=== PATIENT | male | born 1940 | race Caucasian/White ===

== ENCOUNTER 2019-07-15 07:32 | Outpatient (CLI) | payer MEDICARE, OTHER, SELFPAY ==
[2019-07-15 08:43] LABS: Prostate Specific Antigen 1.64 ng/mL (0-4)
[2019-07-15 09:15] LABS: Testosterone Total 7.4 ng/dL (193-740)
[2019-07-15] MEDS: lidocaine 1% INJ 20 mL INJECTION (09:53)
[2019-07-15] MEDS: goserelin acetate 10.8 mg Implant IM (10:00)
--- NOTE | 2019-07-15 11:07 | ONC FU_ITS ---
Dr. Chavarria follow up note Patient: Lorenzo Desouza Unit #: [id number]: [id number] Dicatated By: Florence Chavarria M.D.Date of Visit:Jul 15, 2019 Onc Med Follow-up/Prog Note History of Present Illness: Mr. Deo Ventura is a 79-year-old gentleman with history of prostate cancer initially diagnosed in 2001 at that time his PSA was 14.3 and Skylar score was 3+4 and he was treated with radical prostatectomy with negative lymph nodes but positive extraprostatic extension with positive margins. Follow-up showed rising PSA for that he underwent adjuvant radiation therapy which was completed in March 2003. Was doing well until March 2014 when he was started on LHRH agonist therapy for slowly rising PSA and in May 2015 is a PSA was 37 so he was started on combined androgen blockade with that he had excellent response and his last PSA checked 07/06/2017 it was less than 0.04 and same day he received his 3 monthly dose of Zoladex 10.8 mg and he is also taking Casodex 50 mg daily.And continued with 3 monthly Zoladex till 01/03/2018 at that time it was changed to every 6 months and Casodex was discontinued.Switched to 3 monthly Zoladex alone on 01/10/2019 because of progressive PSA CT scan of pelvis done on 05/03/2018 showed no evidence of metastatic disease but rectosigmoid colon junction wall thickening for which patient underwent colonoscopy on 06/08/2018 which showed proximal descending colon sessile polyps , were completely removed and proximal sigmoid colon also showed multiple medium diverticula. Came for follow-up, denies any specific complaints, no nausea or vomiting no fever or chills, no diarrhea constipation, occasionally hot flashes otherwise tolerating Zoladex well. No hematuria no dysuria no new bony pains. Medications: Acetaminophen 1 (325 mg) Tablet Oral daily PRN, Allergy Relief 1 (10 mg) Tablet Oral daily, Clotrimazole-Betamethasone 1 (1-0.05 %) Lotion Topical b.i.d. PRN, Ibuprofen 1 (200 mg) Tablet Oral q 4 to 6 hours PRN, ProAir HFA 1 - 2 puff(s) (of 108 (90 base) mcg/act) Aerosol, solution Inhalation q 6 hours PRN, Sulfamethoxazole-Trimethoprim 1 (800-160 mg) Tablet Oral PRN, Symbicort 1 puff(s) (of 80-4.5 mcg/act) Aerosol Inhalation b.i.d. Allergies: No Known Allergies. Review of Systems: Constitutional - Appetite is good and weight is stable. No fever, chills, occasional hot flashes, no night sweats. Energy level is good, ENMT - No sinus congestion/drainage. No mouth sores. No sore throat or difficulty swallowing, Hematologic/Lymphatic - No abnormal bruising or bleeding, Respiratory - No shortness of breath. No cough. No pleuritic pain or hemoptysis, Cardiovascular - No angina pain. No palpitations, Gastrointestinal - No nausea or vomiting. No heartburn or acid reflux. No diarrhea or constipation. No blood in the stool or black stools, Genitourinary (M) - No dysuria or hematuria. No urinary frequency. No urgency or incontinence, Musculoskeletal - Pt denies pain today, Neurologic - No headache or dizziness. No numbness/paresthesias or other focal neurologic symptoms, Psychiatric - No anxiety or depression. No insomnia. Vital Signs: Performed on Jul 15, 2019 09:17 Height - 70.00 in Weight - 223.8 lbs (LOW) BSA - 2.19 sq.m BMI - 32.11 (HIGH) Temperature - 97.4 F (LOW) Pulse - 57 /min (LOW) Respiration - 24 /min BP - 132/74 mm(hg) O2 Sat - 96 % Pain - 0 Performance Status: 0 - Fully active, able to carry on all predisease activities without restrictions. (ECOG) Physical Examination: ENMT - No oral exudates, ulcers, masses, thrush or mucositis. Oropharynx clear. Tongue normal, Respiratory - Lungs are clear to auscultation without rhonchi or wheezing, Cardiovascular - Regular rate and rhythm of heart, Abdomen - Non-tender, non-distended, Good bowel sounds. No guarding or rebound tenderness. No pulsatile masses, Extremities - no edema. Lab/Imaging: Test performed on Apr 10, 2019 09:54 Sodium 136 mmol/L Potassium 5.1 mmol/L Chloride 97 mmol/L CO2 29 mmol/L Anion Gap 15.1 BUN 20 mg/dL Creatinine 1.0 mg/dL Cr Clearance (Est) 86.8500 mL/min Glucose 119 mg/dl Calcium 9.7 mg/dL Protein, Total 6.4 g/dL Albumin 4.1 g/dL Globulin 2.3 gm/dL Bilirubin, Total 0.3 mg/dL ALT (SGPT) 14 U/L AST (SGOT) 14 U/L Alkaline Phosphatase 68 U/L PSA 0.95 ng/mL Impression: Prostrate cancer initially diagnosed in 2001 with PSA 14.3, left nodule and Skylar score 3+4 while 1 biopsy status post radical prostatectomy with negative lymph nodes but positive extra prostatic extension with positive margins. Followed by adjuvant radiation therapy completed in March 2003 History of rising PSA treated with and and LHRH agonist therapy beginning March 2014 and later PSA continued to go up initiated on combined androgen blockade with Zoladex and Casodex in May 2015 for PSA 37. With excellent response last PSA on 07/06/2017 was less than 0.04 and testosterone less than 23 .Last dose of Zoladex was given on 01/03/2018 Switched to 6 monthly Zoladex on 05/08/2018 , and Casodex was discontinued, As follow-up bone scan and CT scan of Pelvis showed no evidence of disease and PSA within normal limit so next dose due in 2 months as Urethral stricture mild Follow-up CT scan of abdomen pelvis done on 05/03/2018 showed no evidence of metastatic disease but rectosigmoid colon junction wall thickening follow-up endoscopic suggested.Colonoscopy done on 06/08/2018 showed proximal descending colon sessile polyps, both were removed and in proximal sigmoid colon, multiple medium-sized diverticula were present. Bone scan done on 05/03/2018 showed no evidence of bone metastases Plan: Discussed with patient regarding his labs his PSA is 1.64, compared to 0.95 on 04/10/2019 and 0.67 on 01/08/2019 and testosterone 7.4 today Clinically, patient is doing well with no new signs symptom suggestive of disease progression but his follow-up lab showed progressive PSA in fact has more than doubled since 01/08/2019. Patient was on Zoladex every 6 month until 01/08/2019 when it was switched to every 3 months. We will proceed with his 3 monthly dose of Zoladex and also add Casodex 50 mg by mouth daily and patient return to clinic in 3 months with PSA/testosterone if PSA continued to go up then will consider adding Zytiga/prednisone. Signed By: Florence Chavarria M.D. <<Signature on File>>
== END 2019-07-15 07:33 | disposition home or self-care (01) ==
LOC: ONCMED 07:36
PROVIDERS: Family Provider Family Medicine; Visit Provider Internal Medicine Hematology & Oncology
DX: C61 Malignant neoplasm of prostate (principal); K57.30 Diverticulosis of large intestine without perforation or abscess without bleeding; Z90.79 Acquired absence of other genital organ(s); Z79.899 Other long term (current) drug therapy; Z79.818 Long term (current) use of other agents affecting estrogen receptors and estrogen levels
CPT/HCPCS: 36415; 84153; 84403; 96372; 96402; 99214; J2001; J9202

== ENCOUNTER 2019-10-16 08:55 | Outpatient (CLI) | payer MEDICARE, OTHER, SELFPAY ==
[2019-10-16 21:20] LABS: Testosterone Total 15.3 ng/dL (193-740)
[2019-10-16 21:21] LABS: Prostate Specific Antigen 0.46 ng/mL (0-4)
== END 2019-10-16 08:56 | disposition home or self-care (01) ==
LOC: ONCMED 15:55
PROVIDERS: PCP Family Medicine; Visit Provider Internal Medicine Hematology & Oncology
DX: C61 Malignant neoplasm of prostate (principal)
CPT/HCPCS: 36415; 84153; 84403

== ENCOUNTER 2019-10-18 07:56 | Outpatient (CLI) | payer MEDICARE, OTHER, SELFPAY ==
[2019-10-18] MEDS: lidocaine 1% INJ 20 mL INJECTION (08:45)
[2019-10-18] MEDS: goserelin acetate 10.8 mg Implant IM (09:00)
--- NOTE | 2019-10-18 14:09 | ONC FU_ITS ---
Dr. Chavarria follow up note Patient: Lorenzo Desouza Unit #: [id number]: 1940 Dicatated By: Florence Chavarria M.D.Date of Visit:October 18, 2019 Onc Med Follow-up/Prog Note History of Present Illness: Mr. Deo Ventura is a 79-year-old gentleman with history of prostate cancer initially diagnosed in 2001 at that time his PSA was 14.3 and Skylar score was 3+4 and he was treated with radical prostatectomy with negative lymph nodes but positive extraprostatic extension with positive margins. Follow-up showed rising PSA for that he underwent adjuvant radiation therapy which was completed in March 2003. Was doing well until March 2014 when he was started on LHRH agonist therapy for slowly rising PSA and in May 2015 is a PSA was 37 so he was started on combined androgen blockade with that he had excellent response and his last PSA checked 07/06/2017 it was less than 0.04 and same day he received his 3 monthly dose of Zoladex 10.8 mg and he is also taking Casodex 50 mg daily.And continued with 3 monthly Zoladex till 01/03/2018 at that time it was changed to every 6 months and Casodex was discontinued.Switched to 3 monthly Zoladex alone on 01/10/2019 because of progressive PSA, Casodex was added again on 07/15/2019 for progressive PSA, his PSA was 1.64, compared to 0.95 on 04/10/2019 and 0.67 on 01/08/2019 CT scan of pelvis done on 05/03/2018 showed no evidence of metastatic disease but rectosigmoid colon junction wall thickening for which patient underwent colonoscopy on 06/08/2018 which showed proximal descending colon sessile polyps , were completely removed and proximal sigmoid colon also showed multiple medium diverticula. Came for follow-up, denies any specific complaints, no nausea vomiting no fever no chills, occasionally hot flashes, otherwise tolerating ADT with Zoladex/Casodex well Medications: Acetaminophen 1 (325 mg) Tablet Oral daily PRN, Allergy Relief 1 (10 mg) Tablet Oral daily, Clotrimazole-Betamethasone 1 (1-0.05 %) Lotion Topical b.i.d. PRN, Ibuprofen 1 (200 mg) Tablet Oral q 4 to 6 hours PRN, ProAir HFA 1 - 2 puff(s) (of 108 (90 base) mcg/act) Aerosol, solution Inhalation q 6 hours PRN, Symbicort 1 puff(s) (of 80-4.5 mcg/act) Aerosol Inhalation b.i.d. Allergies: No Known Allergies. Review of Systems: Constitutional - Appetite is good and weight is stable. No fever, chills, occasional hot flashes, no night sweats. Energy level is poor, ENMT - Positive for sinus congestion/drainage. No mouth sores. No sore throat or difficulty swallowing, Hematologic/Lymphatic - Positive for easy bruising, Respiratory - Positive for shortness of breath and cough. No pleuritic pain or hemoptysis, Cardiovascular - No angina pain. No palpitations, Gastrointestinal - No nausea or vomiting. Positive for heartburn/ acid reflux. No diarrhea or constipation. No blood in the stool or black stools, Genitourinary (M) - No dysuria or hematuria. No urinary frequency. No urgency or incontinence, Musculoskeletal - Pt reports chronic pain in both hands. He states he has an upcoming appt in [facility] for this, Neurologic - No headache or dizziness. No numbness/paresthesias or other focal neurologic symptoms, Psychiatric - No anxiety or depression. No insomnia. Vital Signs: Performed on October 18, 2019 08:04 Height - 70.00 in Weight - 226.2 lbs (HIGH) BSA - 2.20 sq.m BMI - 32.46 (HIGH) Temperature - 97.7 F (LOW) Pulse - 71 /min Respiration - 18 /min BP - 150/71 mm(hg) (HIGH) O2 Sat - 93 % (LOW) Pain - 5 Performance Status: 0 - Fully active, able to carry on all predisease activities without restrictions. (ECOG) Physical Examination: ENMT - no mouth sores, Respiratory - Lungs are clear, Cardiovascular - Regular rate and rhythm of heart, Abdomen - soft, bowel sounds present, Extremities - no visible edema. Lab/Imaging: Test performed on Jul 15, 2019 07:47 Testosterone, Total 7.4 ng/dL PSA 1.64 ng/mL Impression: Prostrate cancer initially diagnosed in 2001 with PSA 14.3, left nodule and Skylar score 3+4 while 1 biopsy status post radical prostatectomy with negative lymph nodes but positive extra prostatic extension with positive margins. Followed by adjuvant radiation therapy completed in March 2003 History of rising PSA treated with and and LHRH agonist therapy beginning March 2014 and later PSA continued to go up initiated on combined androgen blockade with Zoladex and Casodex in May 2015 for PSA 37. With excellent response last PSA on 07/06/2017 was less than 0.04 and testosterone less than 23 .Last dose of Zoladex was given on 01/03/2018 Switched to 6 monthly Zoladex on 05/08/2018 , and Casodex was discontinued, As follow-up bone scan and CT scan of Pelvis showed no evidence of disease and PSA within normal limit so next dose due in 2 months as Urethral stricture mild Follow-up CT scan of abdomen pelvis done on 05/03/2018 showed no evidence of metastatic disease but rectosigmoid colon junction wall thickening follow-up endoscopic suggested.Colonoscopy done on 06/08/2018 showed proximal descending colon sessile polyps, both were removed and in proximal sigmoid colon, multiple medium-sized diverticula were present. Bone scan done on 05/03/2018 showed no evidence of bone metastases Plan: Discussed with patient regarding his labs PSA 0.46, compared to 1.64 on 07/15/2019 and testosterone 15.3 Clinically, patient is doing well with no signs symptoms just of recurrence / progression of disease, his follow-up PSA showed significant improvement and today's 0.46 compared to 1.64 on 07/15/2019. When Casodex 50 mg by mouth was added for progressive PSA. Patient is tolerating Zoladex/Casodex well, we'll proceed with the next 3 monthly dose of Zoladex today and then he will return to clinic in 3 months with PSA in the meantime he will continue with daily Casodex. Signed By: Florence Chavarria M.D. <<Signature on File>>
== END 2019-10-18 07:57 | disposition home or self-care (01) ==
LOC: ONCMED 07:57
PROVIDERS: PCP Family Medicine; Visit Provider Internal Medicine Hematology & Oncology
DX: C61 Malignant neoplasm of prostate (principal); N35.919 Unspecified urethral stricture, male, unspecified site; Z92.3 Personal history of irradiation; Z79.890 Hormone replacement therapy; Z79.818 Long term (current) use of other agents affecting estrogen receptors and estrogen levels; Z79.899 Other long term (current) drug therapy
CPT/HCPCS: 96372; 96402; 99214; J2001; J9202

== ENCOUNTER 2019-11-13 11:28 | Outpatient (CLI) | payer MEDICARE, OTHER, SELFPAY ==
--- NOTE | 2019-11-13 11:54 | US_ITS ---
WS: [id number] DIAGNOSTIC BILATERAL DIGITAL MAMMOGRAM WITH CAD RIGHT breast ultrasound, limited HISTORY: RIGHT BREAST LUMP COMPARISON: None available. TECHNIQUE: Bilateral craniocaudad, mediolateral oblique, and mediolateral views are submitted. Spot c ompression RIGHT and LEFT CC. Computer aided detection utilized. Breast composition: The breasts are almost entirely fatty. Triangular marker is placed over the anter ior RIGHT breast near the nipple. 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 RIGHT breast ultrasound. Ultrasound is directed to the palpable area in the RIGHT nipple. There is mild soft tissue thickening in a flame-shaped distribution which is most typical for very minimal gynecomastia. US/US breast RT limited* [id number] IMPRESSION: BI-RADS: 2-Benign FOLLOW UP: See Report Findings are most typical for very minimal gynecomastia. Clinically if this pal pable mass continues to be of concern surgical biopsy could be obtained.
== END 2019-11-13 11:29 | disposition home or self-care (01) ==
LOC: RADSHAW 11:35
PROVIDERS: PCP Family Medicine; Visit Provider Family Medicine
DX: N63.10 Unspecified lump in the right breast, unspecified quadrant (principal)
CPT/HCPCS: 76642; 77066

== ENCOUNTER 2020-01-24 08:00 | Outpatient (CLI) | payer MEDICARE, BC, OTHER, SELFPAY ==
[2020-01-24 08:55] LABS: Prostate Specific Antigen 0.714 ng/mL (0-4)
--- NOTE | 2020-01-24 09:56 | ONC FU_ITS ---
Dr. Chavarria follow up note Patient: Lorenzo Desouza Unit #: [id number]: 1940 Dicatated By: Florence Chavarria M.D.Date of Visit:Jan 24, 2020 Onc Med Follow-up/Prog Note History of Present Illness: Mr. Deo Ventura is a 79-year-old gentleman with history of prostate cancer initially diagnosed in 2001 at that time his PSA was 14.3 and Skylar score was 3+4 and he was treated with radical prostatectomy with negative lymph nodes but positive extraprostatic extension with positive margins. Follow-up showed rising PSA for that he underwent adjuvant radiation therapy which was completed in March 2003. Was doing well until March 2014 when he was started on LHRH agonist therapy for slowly rising PSA and in May 2015 is a PSA was 37 so he was started on combined androgen blockade with that he had excellent response and his last PSA checked 07/06/2017 it was less than 0.04 and same day he received his 3 monthly dose of Zoladex 10.8 mg and he is also taking Casodex 50 mg daily.And continued with 3 monthly Zoladex till 01/03/2018 at that time it was changed to every 6 months and Casodex was discontinued.Switched to 3 monthly Zoladex alone on 01/10/2019 because of progressive PSA, Casodex was added again on 07/15/2019 for progressive PSA, his PSA was 1.64, compared to 0.95 on 04/10/2019 and 0.67 on 01/08/2019 CT scan of pelvis done on 05/03/2018 showed no evidence of metastatic disease but rectosigmoid colon junction wall thickening for which patient underwent colonoscopy on 06/08/2018 which showed proximal descending colon sessile polyps , were completely removed and proximal sigmoid colon also showed multiple medium diverticula Mammogram done on November 13, 2019 questionable fullness and it came back benign with mild soft tissue thickening in the flame shaped distribution seen in the lateral alveolar area on breast sonogram is most typical for very minimal gynecomastia. Came for follow-up, denies any specific complaint except occasionally hot flashes otherwise no fever chills, no nausea or vomiting no diarrhea constipation no abdominal pain, no dysuria otherwise tolerating ADT with Zoladex/Casodex well Medications: Acetaminophen 1 (325 mg) Tablet Oral daily PRN, Allergy Relief 1 (10 mg) Tablet Oral daily, Clotrimazole-Betamethasone 1 (1-0.05 %) Lotion Topical b.i.d. PRN, Ibuprofen 1 (200 mg) Tablet Oral q 4 to 6 hours PRN, ProAir HFA 1 - 2 puff(s) (of 108 (90 base) mcg/act) Aerosol, solution Inhalation q 6 hours PRN, Symbicort 1 puff(s) (of 80-4.5 mcg/act) Aerosol Inhalation b.i.d. Allergies: No Known Allergies. Review of Systems: Constitutional - Appetite is good and weight is stable. No fever, chills, occasional hot flashes, no night sweats. Energy level is poor, ENMT - Positive for sinus congestion/drainage. No mouth sores. No sore throat or difficulty swallowing, Hematologic/Lymphatic - Positive for easy bruising, Respiratory - Positive for shortness of breath and cough. No pleuritic pain or hemoptysis, Cardiovascular - No angina pain. No palpitations, Gastrointestinal - No nausea or vomiting. Positive for heartburn/ acid reflux. No diarrhea or constipation. No blood in the stool or black stools, Genitourinary (M) - No dysuria or hematuria. No urinary frequency. No urgency or incontinence, Musculoskeletal - Pt reports chronic pain in both hands, Neurologic - No headache or dizziness. No numbness/paresthesias or other focal neurologic symptoms, Psychiatric - No anxiety or depression. No insomnia. Vital Signs: Performed on Jan 24, 2020 09:23 Height - 70.00 in Weight - 224.6 lbs (LOW) BSA - 2.19 sq.m BMI - 32.23 (HIGH) Temperature - 97.4 F (LOW) Pulse - 70 /min Respiration - 20 /min BP - 154/84 mm(hg) (HIGH) O2 Sat - 93 % (LOW) Pain - 0 Performance Status: 0 - Fully active, able to carry on all predisease activities without restrictions. (ECOG) Physical Examination: ENMT - No mouth sores, no thrush, no jaundice, Respiratory - Lungs are clear, Cardiovascular - Regular rate and rhythm of heart, Abdomen - Soft, bowel sounds present, nontender, Extremities - No visible edema or rash. Lab/Imaging: Test performed on Oct 16, 2019 08:55 Testosterone, Total 15.3 ng/dL PSA 0.46 ng/mL Impression: Prostrate cancer initially diagnosed in 2001 with PSA 14.3, left nodule and Skylar score 3+4 while 1 biopsy status post radical prostatectomy with negative lymph nodes but positive extra prostatic extension with positive margins. Followed by adjuvant radiation therapy completed in March 2003 History of rising PSA treated with and and LHRH agonist therapy beginning March 2014 and later PSA continued to go up initiated on combined androgen blockade with Zoladex and Casodex in May 2015 for PSA 37. With excellent response last PSA on 07/06/2017 was less than 0.04 and testosterone less than 23 .Last dose of Zoladex was given on 01/03/2018 Switched to 6 monthly Zoladex on 05/08/2018 , and Casodex was discontinued, As follow-up bone scan and CT scan of Pelvis showed no evidence of disease and PSA within normal limit so next dose due in 2 months as Urethral stricture mild Follow-up CT scan of abdomen pelvis done on 05/03/2018 showed no evidence of metastatic disease but rectosigmoid colon junction wall thickening follow-up endoscopic suggested.Colonoscopy done on 06/08/2018 showed proximal descending colon sessile polyps, both were removed and in proximal sigmoid colon, multiple medium-sized diverticula were present. Bone scan done on 05/03/2018 showed no evidence of bone metastases Plan: Discussed with patient regarding his PSA level which is 0.714 compared to 0.46 on October 16, 2019 and 1.64 on July 15, 2019 Clinically, patient doing well with no new signs symptoms suggestive of recurrence of disease, tolerating Zoladex/Casodex well but with expected side effects e.g. occasionally hot flashes and bilateral gynecomastia confirmed by bilateral mammogram and sonogram done on November 13, 2019. We will proceed with his next 3 monthly dose of Zoladex and he will continue daily Casodex and then he will return to clinic in 3 months with a PSA, his PSA continues to go up per patient develops new symptoms then will consider further studies including scans to confirm recurrence. Signed By: Florence Chavarria M.D. <<Signature on File>>
[2020-01-24] MEDS: goserelin acetate 10.8 mg Implant IM (10:16)
[2020-01-24] MEDS: lidocaine 1% INJ 20 mL INJECTION (10:16)
== END 2020-01-24 08:01 | disposition home or self-care (01) ==
LOC: ONCMED 08:04
PROVIDERS: PCP Family Medicine; Visit Provider Internal Medicine Hematology & Oncology
DX: C61 Malignant neoplasm of prostate (principal); R97.21 Rising PSA following treatment for malignant neoplasm of prostate; Z79.818 Long term (current) use of other agents affecting estrogen receptors and estrogen levels; Z79.899 Other long term (current) drug therapy; Z90.79 Acquired absence of other genital organ(s); Z92.3 Personal history of irradiation
CPT/HCPCS: 84153; 96372; 96402; 99214; J9202

== ENCOUNTER 2020-04-27 12:24 | Outpatient (CLI) | payer MEDICARE, OTHER, SELFPAY ==
[2020-04-27] MEDS: lidocaine 1% INJ 20 mL INJECTION (14:29)
[2020-04-27] MEDS: goserelin acetate 10.8 mg Implant IM (14:40)
--- NOTE | 2020-04-27 16:19 | ONC FU_ITS ---
Dr. Chavarria follow up note Patient: Lorenzo Desouza Unit #: [id number]: 1940 Dicatated By: Florence Chavarria M.D.Date of Visit:Apr 27, 2020 Onc Med Follow-up/Prog Note History of Present Illness: Mr. Deo Ventura is a 80-year-old gentleman with history of prostate cancer initially diagnosed in 2001 at that time his PSA was 14.3 and Skylar score was 3+4 and he was treated with radical prostatectomy with negative lymph nodes but positive extraprostatic extension with positive margins. Follow-up showed rising PSA for that he underwent adjuvant radiation therapy which was completed in March 2003. Was doing well until March 2014 when he was started on LHRH agonist therapy for slowly rising PSA and in May 2015 is a PSA was 37 so he was started on combined androgen blockade with that he had excellent response and his last PSA checked 07/06/2017 it was less than 0.04 and same day he received his 3 monthly dose of Zoladex 10.8 mg and he is also taking Casodex 50 mg daily.And continued with 3 monthly Zoladex till 01/03/2018 at that time it was changed to every 6 months and Casodex was discontinued.Switched to 3 monthly Zoladex alone on 01/10/2019 because of progressive PSA, Casodex was added again on 07/15/2019 for progressive PSA, his PSA was 1.64, compared to 0.95 on 04/10/2019 and 0.67 on 01/08/2019 CT scan of pelvis done on 05/03/2018 showed no evidence of metastatic disease but rectosigmoid colon junction wall thickening for which patient underwent colonoscopy on 06/08/2018 which showed proximal descending colon sessile polyps , were completely removed and proximal sigmoid colon also showed multiple medium diverticula Mammogram done on November 13, 2019 questionable fullness and it came back benign with mild soft tissue thickening in the flame shaped distribution seen in the lateral alveolar area on breast sonogram is most typical for very minimal gynecomastia. tolerating ADT with Zoladex/Casodex well Came for follow-up, denies any specific complaints, no fever chills, no nausea or vomiting, no diarrhea or constipation, occasionally hot flashes otherwise tolerating ADT with Zoladex/Casodex well. Medications: Acetaminophen 1 (325 mg) Tablet Oral daily PRN, Allergy Relief 1 (10 mg) Tablet Oral daily, Clotrimazole-Betamethasone 1 (1-0.05 %) Lotion Topical b.i.d. PRN, Ibuprofen 1 (200 mg) Tablet Oral q 4 to 6 hours PRN, ProAir HFA 1 - 2 puff(s) (of 108 (90 base) mcg/act) Aerosol, solution Inhalation q 6 hours PRN, Symbicort 1 puff(s) (of 80-4.5 mcg/act) Aerosol Inhalation b.i.d. Allergies: No Known Allergies. Review of Systems: Review of Systems is not available for this patient. Vital Signs: Performed on Apr 27, 2020 13:57 Height - 70.00 in Weight - 229.2 lbs (HIGH) BSA - 2.21 sq.m BMI - 32.89 (HIGH) Temperature - 98.1 F (LOW) Pulse - 71 /min Respiration - 24 /min BP - 152/82 mm(hg) (HIGH) O2 Sat - 92 % (LOW) Pain - 0 Performance Status: 0 - Fully active, able to carry on all predisease activities without restrictions. (ECOG) Physical Examination: ENMT - No mouth sores, no thrush, no jaundice, Respiratory - Lungs are clear to auscultation, Cardiovascular - Regular rate and rhythm of heart, Abdomen - Soft, bowel sounds present, Extremities - No visible edema. Lab/Imaging: Test performed on Apr 27, 2020 12:36 PSA 1.160 ng/mL Impression: Prostrate cancer initially diagnosed in 2001 with PSA 14.3, left nodule and Skylar score 3+4 while 1 biopsy status post radical prostatectomy with negative lymph nodes but positive extra prostatic extension with positive margins. Followed by adjuvant radiation therapy completed in March 2003 History of rising PSA treated with and and LHRH agonist therapy beginning March 2014 and later PSA continued to go up initiated on combined androgen blockade with Zoladex and Casodex in May 2015 for PSA 37. With excellent response last PSA on 07/06/2017 was less than 0.04 and testosterone less than 23 .Last dose of Zoladex was given on 01/03/2018 Switched to 6 monthly Zoladex on 05/08/2018 , and Casodex was discontinued, As follow-up bone scan and CT scan of Pelvis showed no evidence of disease and PSA within normal limit so next dose due in 2 months as Urethral stricture mild Follow-up CT scan of abdomen pelvis done on 05/03/2018 showed no evidence of metastatic disease but rectosigmoid colon junction wall thickening follow-up endoscopic suggested.Colonoscopy done on 06/08/2018 showed proximal descending colon sessile polyps, both were removed and in proximal sigmoid colon, multiple medium-sized diverticula were present. Bone scan done on 05/03/2018 showed no evidence of bone metastases Plan: Discussed with her regarding his labs PSA 1.16 compared to 0.714 on January 24, 2020 Clinically, patient doing well with no new signs symptoms, tolerating ADT with Casodex/Zoladex well but with expected side effect e.g. occasionally hot flashes, gynecomastia. Is a follow-up PSA shows further increase in PSA compared to 0.714 in January 2020 today it was 1.16 and there is a concern about disease progression although patient has no new symptoms so at this point [facility] CT PET scan was considered but patient wants to wait till next visit as his PSA continues to go up then he would consider going to [place] for the special scan otherwise he is reluctant to travel to [place]. We will proceed with Zoladex 10.8 mg today then return to clinic in 3 months with CMP and PSA if PSA continues to go up consider [facility] CT PET scan at [place] to assess disease status, patient has localized disease may consider stereotactic radiation if possible. Signed By: Florence Chavarria M.D. <<Signature on File>>
== END 2020-04-27 12:25 | disposition home or self-care (01) ==
LOC: ONCMED 12:29
PROVIDERS: PCP Family Medicine; Visit Provider Internal Medicine Hematology & Oncology
DX: C61 Malignant neoplasm of prostate (principal); N35.919 Unspecified urethral stricture, male, unspecified site; R97.20 Elevated prostate specific antigen [PSA]; Z79.818 Long term (current) use of other agents affecting estrogen receptors and estrogen levels
CPT/HCPCS: 84153; 96372; 96402; 99214; J9202

== ENCOUNTER 2020-08-18 13:23 | Outpatient (CLI) | payer MEDICARE, OTHER, SELFPAY ==
[2020-08-18 14:13] LABS: Basophils % 0.5 %; Eosinophils # 0.1 10^3/uL (0.0-0.8); Eosinophils % 1.7 %; Hematocrit 46.9 % (42.0-52.0); Hemoglobin 15.3 g/dL (11.7-16.6); Lymphocytes # 1.6 10^3/uL (0.8-4.8); Lymphocytes % 27.7 %; Mean Corpuscular HGB Conc 32.6 g/dL (30.0-36.0); Mean Corpuscular Hemoglobin 26.7 pg (28.0-34.0); Mean Corpuscular Volume 81.8 fL (80-94); Mean Platelet Volume 10.9 fL (7.4-10.4); Monocytes # 0.6 10^3/uL (0.2-0.9); Monocytes % 10.2 %; Neutrophils % 59.6 %; Nucleated Red Blood Cells % 0 %; Platelet Count 180 10^3/cmm (130-400); Red Blood Count 5.73 10^6/uL (4.1-5.3); Red Cell Distribution Width 13.8 % (12.1-15.1); White Blood Count 5.9 10^3/uL (4.0-10.0)
[2020-08-18] MEDS: lidocaine 1% INJ 20 mL INJECTION (16:10)
--- NOTE | 2020-08-18 16:16 | ONC FU_ITS ---
Dr. Chavarria follow up note Patient: Lorenzo Desouza Unit #: [id number]: 1940 Dicatated By: Florence Chavarria M.D.Date of Visit:Aug 18, 2020 Onc Med Follow-up/Prog Note History of Present Illness: Mr. Deo Ventura is a 80-year-old gentleman with history of prostate cancer initially diagnosed in 2001 at that time his PSA was 14.3 and Skylar score was 3+4 and he was treated with radical prostatectomy with negative lymph nodes but positive extraprostatic extension with positive margins. Follow-up showed rising PSA for that he underwent adjuvant radiation therapy which was completed in March 2003. Was doing well until March 2014 when he was started on LHRH agonist therapy for slowly rising PSA and in May 2015 is a PSA was 37 so he was started on combined androgen blockade with that he had excellent response and his last PSA checked 07/06/2017 it was less than 0.04 and same day he received his 3 monthly dose of Zoladex 10.8 mg and he is also taking Casodex 50 mg daily.And continued with 3 monthly Zoladex till 01/03/2018 at that time it was changed to every 6 months and Casodex was discontinued.Switched to 3 monthly Zoladex alone on 01/10/2019 because of progressive PSA, Casodex was added again on 07/15/2019 for progressive PSA, his PSA was 1.64, compared to 0.95 on 04/10/2019 and 0.67 on 01/08/2019 CT scan of pelvis done on 05/03/2018 showed no evidence of metastatic disease but rectosigmoid colon junction wall thickening for which patient underwent colonoscopy on 06/08/2018 which showed proximal descending colon sessile polyps , were completely removed and proximal sigmoid colon also showed multiple medium diverticula Mammogram done on November 13, 2019 questionable fullness and it came back benign with mild soft tissue thickening in the flame shaped distribution seen in the lateral alveolar area on breast sonogram is most typical for very minimal gynecomastia. tolerating ADT with Zoladex/Casodex well, Casodex discontinued on August 16, 2020 Came for follow-up, complaining of generalized weakness and fatigue but no fever chills no nausea or vomiting no diarrhea constipation, no abdominal pain, no dysuria no hematuria, occasionally hot flashes otherwise tolerating Zoladex/Casodex well but patient ran out of Casodex 3 days ago Medications: Acetaminophen 1 (325 mg) Tablet Oral daily PRN, Allergy Relief 1 (10 mg) Tablet Oral daily, Clotrimazole-Betamethasone 1 (1-0.05 %) Lotion Topical b.i.d. PRN, Ibuprofen 1 (200 mg) Tablet Oral q 4 to 6 hours PRN, ProAir HFA 1 - 2 puff(s) (of 108 (90 base) mcg/act) Aerosol, solution Inhalation q 6 hours PRN, Symbicort 1 puff(s) (of 80-4.5 mcg/act) Aerosol Inhalation b.i.d. Allergies: No Known Allergies. Review of Systems: Review of Systems is not available for this patient. Vital Signs: Performed on Aug 18, 2020 15:23 Height - 70.00 in Weight - 227.2 lbs (LOW) BSA - 2.20 sq.m BMI - 32.60 (HIGH) Temperature - 98.2 F (LOW) Pulse - 67 /min Respiration - 18 /min BP - 152/70 mm(hg) (HIGH) O2 Sat - 93 % (LOW) Pain - 0 Fatigue - 0 Performance Status: 1 - No physically strenuous activity, but ambulatory and able to carry out light or sedentary work (e.g. office work, light house work). (ECOG) Physical Examination: ENMT - No mouth sores, no thrush, no jaundice, Respiratory - Lungs are clear to auscultation, Cardiovascular - Regular rate and rhythm of heart, Abdomen - Soft, bowel sounds present, Extremities - No visible edema. Lab/Imaging: Test performed on Aug 18, 2020 13:59 WBC 5.9 10 3/uL RBC 5.73 10 6/uL HGB 15.3 g/dL HCT 46.9 % MCV 81.8 fL MCH 26.7 pg MCHC 32.6 g/dL RDW 13.8 % Platelet Count 180 10 3/cmm MPV 10.9 fL Neutrophils 3.50 10 3/uL Lymphocytes 1.6 10 3/uL Monocytes 0.6 10 3/uL Eosinophils 0.1 10 3/uL Basophils 0.0 10 3/uL Neutrophil % 59.6 % Lymphocyte % 27.7 % Monocyte % 10.2 % Eosinophil % 1.7 % Basophils % 0.5 % NRBC % 0 % PSA 1.860 ng/mL Impression: Prostrate cancer initially diagnosed in 2001 with PSA 14.3, left nodule and Skylar score 3+4 while 1 biopsy status post radical prostatectomy with negative lymph nodes but positive extra prostatic extension with positive margins. Followed by adjuvant radiation therapy completed in March 2003 History of rising PSA treated with and and LHRH agonist therapy beginning March 2014 and later PSA continued to go up initiated on combined androgen blockade with Zoladex and Casodex in May 2015 for PSA 37. With excellent response last PSA on 07/06/2017 was less than 0.04 and testosterone less than 23 .Last dose of Zoladex was given on 01/03/2018 Switched to 6 monthly Zoladex on 05/08/2018 , and Casodex was discontinued, As follow-up bone scan and CT scan of Pelvis showed no evidence of disease and PSA within normal limit so next dose due in 2 months as Urethral stricture mild Follow-up CT scan of abdomen pelvis done on 05/03/2018 showed no evidence of metastatic disease but rectosigmoid colon junction wall thickening follow-up endoscopic suggested.Colonoscopy done on 06/08/2018 showed proximal descending colon sessile polyps, both were removed and in proximal sigmoid colon, multiple medium-sized diverticula were present. Bone scan done on 05/03/2018 showed no evidence of bone metastases Plan: Discussed with patient regarding his labs white blood count 5.9 hemoglobin 15.3 hematocrit 46.9 platelets 180,000 PSA 1.86 compared to 1.16 on April 27, 2020 Clinically, patient doing well with no signs symptoms suggestive of disease progression but his PSA is going up slowly and gradually. Patient is tolerating combined Zoladex/Casodex well but because of progressive symptoms related to ADT, will discontinue Casodex but continue with Zoladex every 3-month patient will receive next 3 monthly dose and then return to clinic in 3 months with PSA and testosterone if PSA continues to go up, will consider bone bone scan and CT scan of abdomen pelvis or [place] CT PET scan Signed By: Florence Chavarria M.D. <<Signature on File>>
[2020-08-18] MEDS: goserelin acetate 10.8 mg Implant IM (16:20)
== END 2020-08-18 13:24 | disposition home or self-care (01) ==
LOC: ONCMED 13:29
PROVIDERS: PCP Family Medicine; Visit Provider Internal Medicine Hematology & Oncology
DX: C61 Malignant neoplasm of prostate (principal); Z90.79 Acquired absence of other genital organ(s); R97.20 Elevated prostate specific antigen [PSA]; N35.919 Unspecified urethral stricture, male, unspecified site
CPT/HCPCS: 36415; 84153; 85025; 96372; 96402; 99214; J9202

== ENCOUNTER 2020-11-17 13:28 | Outpatient (CLI) | payer MEDICARE, OTHER, SELFPAY ==
[2020-11-17 14:18] LABS: Basophils % 0.4 %; Eosinophils # 0.1 10^3/uL (0.0-0.8); Eosinophils % 1.9 %; Hematocrit 45.9 % (42.0-52.0); Hemoglobin 14.6 g/dL (11.7-16.6); Lymphocytes # 1.4 10^3/uL (0.8-4.8); Lymphocytes % 26.8 %; Mean Corpuscular HGB Conc 31.8 g/dL (30.0-36.0); Mean Corpuscular Hemoglobin 26.4 pg (28.0-34.0); Mean Corpuscular Volume 83.2 fL (80-94); Mean Platelet Volume 11.3 fL (7.4-10.4); Monocytes # 0.6 10^3/uL (0.2-0.9); Monocytes % 11.2 %; Neutrophils % 59.5 %; Nucleated Red Blood Cells % 0 %; Platelet Count 181 10^3/cmm (130-400); Red Blood Count 5.52 10^6/uL (4.1-5.3); Red Cell Distribution Width 13.5 % (12.1-15.1); White Blood Count 5.4 10^3/uL (4.0-10.0)
[2020-11-17 14:54] LABS: Alanine Aminotransferase 19 U/L (0-41); Albumin Level 4.1 g/dL (3.5-5.2); Alkaline Phosphatase 77 IU/L (40-130); Anion Gap 15.6 (5-19); Aspartate Amino Transferase 15 U/L (0-40); Blood Urea Nitrogen 18 mg/dL (8-23); Calcium 8.4 mg/dL (8.5-10.5); Carbon Dioxide 26 mmol/L (22-29); Chloride 102 mmol/L (98-107); Glucose 81 mg/dL (65-115); Osmolality Calculated 289 mOsm/kg (285-295); Potassium 4.6 mmol/L (3.5-5.1); Sodium 139 mmol/L (136-145); Total Bilirubin 0.3 mg/dL (0.15-1.2); Total Protein 6.1 g/dL (6.6-8.7)
[2020-11-17] MEDS: lidocaine 1% INJ 20 mL INJECTION (15:41)
--- NOTE | 2020-11-17 15:43 | ONC FU_ITS ---
Dr. Chavarria follow up note Patient: Lorenzo Desouza Unit #: [id number]: 1940 Dicatated By: Florence Chavarria M.D.Date of Visit:Nov 17, 2020 Onc Med Follow-up/Prog Note History of Present Illness: Mr. Deo Ventura is a 80-year-old gentleman with history of prostate cancer initially diagnosed in 2001 at that time his PSA was 14.3 and Skylar score was 3+4 and he was treated with radical prostatectomy with negative lymph nodes but positive extraprostatic extension with positive margins. Follow-up showed rising PSA for that he underwent adjuvant radiation therapy which was completed in March 2003. Was doing well until March 2014 when he was started on LHRH agonist therapy for slowly rising PSA and in May 2015 is a PSA was 37 so he was started on combined androgen blockade with that he had excellent response and his last PSA checked 07/06/2017 it was less than 0.04 and same day he received his 3 monthly dose of Zoladex 10.8 mg and he is also taking Casodex 50 mg daily.And continued with 3 monthly Zoladex till 01/03/2018 at that time it was changed to every 6 months and Casodex was discontinued.Switched to 3 monthly Zoladex alone on 01/10/2019 because of progressive PSA, Casodex was added again on 07/15/2019 for progressive PSA, his PSA was 1.64, compared to 0.95 on 04/10/2019 and 0.67 on 01/08/2019 CT scan of pelvis done on 05/03/2018 showed no evidence of metastatic disease but rectosigmoid colon junction wall thickening for which patient underwent colonoscopy on 06/08/2018 which showed proximal descending colon sessile polyps , were completely removed and proximal sigmoid colon also showed multiple medium diverticula Mammogram done on November 13, 2019 questionable fullness and it came back benign with mild soft tissue thickening in the flame shaped distribution seen in the lateral alveolar area on breast sonogram is most typical for very minimal gynecomastia. tolerating ADT with Zoladex/Casodex well, Casodex discontinued on August 16, 2020 Came for follow-up, denies any specific complaints, no fever chills, no nausea or vomiting, no diarrhea or constipation, recently underwent mammogram for gynecomastia, which was benign, BI-RADS 2. Complaining of generalized weakness but no hot flashes, no new bony pains, no hematuria or dysuria, tolerating 3 monthly Zoladex well otherwise Medications: Acetaminophen 1 (325 mg) Tablet Oral daily PRN, Allergy Relief 1 (10 mg) Tablet Oral daily, Clotrimazole-Betamethasone 1 (1-0.05 %) Lotion Topical b.i.d. PRN, Ibuprofen 1 (200 mg) Tablet Oral q 4 to 6 hours PRN, ProAir HFA 1 - 2 puff(s) (of 108 (90 base) mcg/act) Aerosol, solution Inhalation q 6 hours PRN, Symbicort 1 puff(s) (of 80-4.5 mcg/act) Aerosol Inhalation b.i.d. Allergies: No Known Allergies. Review of Systems: Review of Systems is not available for this patient. Vital Signs: Performed on Nov 17, 2020 15:06 Height - 70.00 in Weight - 227 lbs (LOW) BSA - 2.20 sq.m BMI - 32.57 (HIGH) Temperature - 97.2 F (LOW) Pulse - 70 /min Respiration - 18 /min BP - 155/85 mm(hg) (HIGH) O2 Sat - 94 % (LOW) Pain - 0 Fatigue - 9 Performance Status: 0 - Fully active, able to carry on all predisease activities without restrictions. (ECOG) Physical Examination: ENMT - No mouth sores, no thrush, no jaundice, Respiratory - Lungs are clear to auscultation, Cardiovascular - Regular rate and rhythm of heart, Abdomen - Soft, bowel sounds present, Extremities - No visible edema. Lab/Imaging: Test performed on Aug 18, 2020 13:59 WBC 5.9 10 3/uL RBC 5.73 10 6/uL HGB 15.3 g/dL HCT 46.9 % MCV 81.8 fL MCH 26.7 pg MCHC 32.6 g/dL RDW 13.8 % Platelet Count 180 10 3/cmm MPV 10.9 fL Neutrophils 3.50 10 3/uL Lymphocytes 1.6 10 3/uL Monocytes 0.6 10 3/uL Eosinophils 0.1 10 3/uL Basophils 0.0 10 3/uL Neutrophil % 59.6 % Lymphocyte % 27.7 % Monocyte % 10.2 % Eosinophil % 1.7 % Basophils % 0.5 % NRBC % 0 % PSA 1.860 ng/mL Impression: Prostrate cancer initially diagnosed in 2001 with PSA 14.3, left nodule and Skylar score 3+4 while 1 biopsy status post radical prostatectomy with negative lymph nodes but positive extra prostatic extension with positive margins. Followed by adjuvant radiation therapy completed in March 2003 History of rising PSA treated with and and LHRH agonist therapy beginning March 2014 and later PSA continued to go up initiated on combined androgen blockade with Zoladex and Casodex in May 2015 for PSA 37. With excellent response last PSA on 07/06/2017 was less than 0.04 and testosterone less than 23 .Last dose of Zoladex was given on 01/03/2018 Switched to 6 monthly Zoladex on 05/08/2018 , and Casodex was discontinued, As follow-up bone scan and CT scan of Pelvis showed no evidence of disease and PSA within normal limit so next dose due in 2 months as Urethral stricture mild Follow-up CT scan of abdomen pelvis done on 05/03/2018 showed no evidence of metastatic disease but rectosigmoid colon junction wall thickening follow-up endoscopic suggested.Colonoscopy done on 06/08/2018 showed proximal descending colon sessile polyps, both were removed and in proximal sigmoid colon, multiple medium-sized diverticula were present. Bone scan done on 05/03/2018 showed no evidence of bone metastases Plan: Discussed with patient regarding his labs white blood count 5.4 hemoglobin 14.6 hematocrit 45.9 platelets 181,000 CMP within normal limits PSA 2.91 compared to 1.86 on August 18, 2020 Clinically, patient doing well with no new signs symptom suggestive of disease progression but his PSA continues to go up, while on 3 monthly Zoladex, at this point we will proceed with next 3 monthly dose of Zoladex today and because of progressive PSA, will consider CT scan of abdomen pelvis and bone scan to assess disease status. Patient return to clinic in 1 month with PSA and CT scan of abdomen pelvis and bone scan Signed By: Florence Chavarria M.D. <<Signature on File>>
[2020-11-17] MEDS: goserelin acetate 10.8 mg Implant SUBCUT (15:53)
== END 2020-11-17 13:29 | disposition home or self-care (01) ==
PROVIDERS: PCP Family Medicine; Visit Provider Internal Medicine Hematology & Oncology
DX: C61 Malignant neoplasm of prostate (principal); R97.20 Elevated prostate specific antigen [PSA]; N35.919 Unspecified urethral stricture, male, unspecified site; K63.5 Polyp of colon; Z79.899 Other long term (current) drug therapy
CPT/HCPCS: 80053; 84153; 85025; 96372; 96402; 99215; J9202

== ENCOUNTER 2020-12-16 08:05 | Outpatient (CLI) | payer MEDICARE, OTHER, SELFPAY ==
--- NOTE | 2020-12-16 08:13 | CT_ITS ---
WS: [id number] CT ABDOMEN PELVIS TECHNIQUE: Contrast-enhanced CT of the abdomen and pelvis with coronal and sagittal reformatted image s. CLINICAL INFORMATION: PROSTATE CANCER COMPARISON: CT 11 15,018 DLP: 1798.[address] scans at [facility] use at least one of these dose optimization techniques: automat ed exposure control; mA and/or kV adjustment per patient size (includes targeted exams where dose is matched to clinical indication); or iterative reconstruction. FINDINGS: Lung bases are well aerated. Diffuse fatty infiltration of the liver. Normal gallbladder. Normal port al vein and splenic vein. Splenic granulomas. Small esophageal hiatal hernia. Fatty atrophy of the pancreas. Adrenal glands are normal. Normal renal parenchymal enhancement. No hydronephrosis. Slightly ectatic infrarenal abdominal aorta measuring 2.2 x 2.4 CM. Prior prostatectomy. Sigmoid diverticulosis. No ev idence of small or large bowel obstruction. No abdominal or pelvic lymphadenopathy. No inguinal lymphadenopathy. Fat-containing inguinal hernias. Disc space narrowing L4-L5 and L5-S1. Otherwise normal lumbar spine. Degenerative arthritis sacroilia c joints. CT/CT abdomen pelvis w con* [id number] IMPRESSION: 1. No evidence of metastatic disease in the abdomen or pelvis. 2. Mild diffuse fatty infiltration liver. 3. No abdominal or pelvic lymphadenopathy. 4. Sigmoid diverticulosis. 5. Slightly ectatic infrarenal abdominal aorta measuring 2.2 x 2.4 CM. 6. No other significant findings.
--- NOTE | 2020-12-16 08:13 | NM_ITS ---
WS: [id number] NUCLEAR MEDICINE BONE SCAN Radiopharmaceutical: 26.8 Tc-99m MDP mCi IV Injection site: Postinjection imaging delay: hr CLINICAL INFORMATION: HX OF CANCER/BONE PAIN COMPARISON: Bone scan FINDINGS: Bone lesions: Focal uptake in the anterior seventh and eighth ribs likely due to rib fractures. No ot her suspicious foci of uptake. No evidence of metastatic disease. Soft tissue contours: Normal. Kidneys: Normal. Other findings: Degenerative type uptake both AC joints and right ankle. NM/NM bone scan whole body* [id number] IMPRESSION: Focal uptake in the anterior seventh and eighth ribs likely due to rib fracture s. No other suspicious foci of uptake. No evidence of metastatic disease.
[2020-12-16] MEDS: iohexol 300 mg/mL 50 mL Btl PO (08:28)
[2020-12-16] MEDS: iohexol 300 mg/mL 100 mL Btl IV (09:58)
== END 2020-12-16 08:06 | disposition home or self-care (01) ==
LOC: RAD 08:08
PROVIDERS: PCP Family Medicine; Visit Provider Internal Medicine Hematology & Oncology
DX: C61 Malignant neoplasm of prostate (principal); M89.8X9 Other specified disorders of bone, unspecified site; K76.89 Other specified diseases of liver; K57.30 Diverticulosis of large intestine without perforation or abscess without bleeding; I77.811 Abdominal aortic ectasia
CPT/HCPCS: 74177; 78306; A9561

== ENCOUNTER 2020-12-22 11:58 | Outpatient (CLI) | payer MEDICARE, OTHER, SELFPAY ==
[2020-12-22 12:58] LABS: Testosterone Total 2.5 ng/dL (193-740)
--- NOTE | 2020-12-22 16:53 | ONC FU_ITS ---
Dr. Chavarria follow up note Patient: Lorenzo Desouza Unit #: [id number]: 1940 Dicatated By: Florence Chavarria M.D.Date of Visit:Dec 22, 2020 Onc Med Follow-up/Prog Note History of Present Illness: Mr. Deo Ventura is a 80-year-old gentleman with history of prostate cancer initially diagnosed in 2001 at that time his PSA was 14.3 and [place] score was 3+4 and he was treated with radical prostatectomy with negative lymph nodes but positive extraprostatic extension with positive margins. Follow-up showed rising PSA for that he underwent adjuvant radiation therapy which was completed in March 2003. Was doing well until March 2014 when he was started on LHRH agonist therapy for slowly rising PSA and in May 2015 is a PSA was 37 so he was started on combined androgen blockade with that he had excellent response and his last PSA checked 07/06/2017 it was less than 0.04 and same day he received his 3 monthly dose of Zoladex 10.8 mg and he is also taking Casodex 50 mg daily.And continued with 3 monthly Zoladex till 01/03/2018 at that time it was changed to every 6 months and Casodex was discontinued.Switched to 3 monthly Zoladex alone on 01/10/2019 because of progressive PSA, Casodex was added again on 07/15/2019 for progressive PSA, his PSA was 1.64, compared to 0.95 on 04/10/2019 and 0.67 on 01/08/2019 CT scan of pelvis done on 05/03/2018 showed no evidence of metastatic disease but rectosigmoid colon junction wall thickening for which patient underwent colonoscopy on 06/08/2018 which showed proximal descending colon sessile polyps , were completely removed and proximal sigmoid colon also showed multiple medium diverticula Mammogram done on November 13, 2019 questionable fullness and it came back benign with mild soft tissue thickening in the flame shaped distribution seen in the lateral alveolar area on breast sonogram is most typical for very minimal gynecomastia. tolerating ADT with Zoladex/Casodex well, Casodex discontinued on August 16, 2020 Due to progressive PSA level,, Follow-up follow-up bone scan done on December 16, 2020 shows uptake in anterior seventh and eighth rib likely due to rib fractures, no suspicious foci of uptake no evidence of metastatic disease, CT scan of abdomen pelvis done on December 16, 2020 showed no evidence of metastatic disease in abdomen or pelvis, diffuse fatty infiltration liver. Slightly ectatic infrarenal abdominal aorta measuring 2.2 x 2.4 cm Came for follow-up, denies any specific complaints, no fever chills, no nausea or vomiting, no diarrhea or constipation, no new bony pains, tolerating 3 monthly Zoladex well otherwise, now being worked up for progressive PSA level Medications: Acetaminophen 1 (325 mg) Tablet Oral daily PRN, Allergy Relief 1 (10 mg) Tablet Oral daily, Clotrimazole-Betamethasone 1 (1-0.05 %) Lotion Topical b.i.d. PRN, Ibuprofen 1 (200 mg) Tablet Oral q 4 to 6 hours PRN, ProAir HFA 1 - 2 puff(s) (of 108 (90 base) mcg/act) Aerosol, solution Inhalation q 6 hours PRN, Symbicort 1 puff(s) (of 80-4.5 mcg/act) Aerosol Inhalation b.i.d. Allergies: No Known Allergies. Review of Systems: Review of Systems is not available for this patient. Vital Signs: Performed on Dec 22, 2020 14:06 Height - 70.00 in Weight - 223 lbs (LOW) BSA - 2.19 sq.m BMI - 32.00 (HIGH) Temperature - 97.7 F (LOW) Pulse - 50 /min (LOW) Respiration - 18 /min BP - 120/70 mm(hg) O2 Sat - 93 % (LOW) Pain - 0 Fatigue - 9 Performance Status: 0 - Fully active, able to carry on all predisease activities without restrictions. (ECOG) Physical Examination: ENMT - No mouth sores, no thrush, no jaundice, Respiratory - Lungs are clear to auscultation, Cardiovascular - Regular rate and rhythm of heart, Abdomen - Soft, bowel sounds present, Extremities - No visible edema. Lab/Imaging: Test performed on Aug 18, 2020 13:59 WBC 5.9 10 3/uL RBC 5.73 10 6/uL HGB 15.3 g/dL HCT 46.9 % MCV 81.8 fL MCH 26.7 pg MCHC 32.6 g/dL RDW 13.8 % Platelet Count 180 10 3/cmm MPV 10.9 fL Neutrophils 3.50 10 3/uL Lymphocytes 1.6 10 3/uL Monocytes 0.6 10 3/uL Eosinophils 0.1 10 3/uL Basophils 0.0 10 3/uL Neutrophil % 59.6 % Lymphocyte % 27.7 % Monocyte % 10.2 % Eosinophil % 1.7 % Basophils % 0.5 % NRBC % 0 % PSA 1.860 ng/mL Impression: Prostrate cancer initially diagnosed in 2001 with PSA 14.3, left nodule and Skylar score 3+4 while 1 biopsy status post radical prostatectomy with negative lymph nodes but positive extra prostatic extension with positive margins. Followed by adjuvant radiation therapy completed in March 2003 History of rising PSA treated with and and LHRH agonist therapy beginning March 2014 and later PSA continued to go up initiated on combined androgen blockade with Zoladex and Casodex in May 2015 for PSA 37. With excellent response last PSA on 07/06/2017 was less than 0.04 and testosterone less than 23 .Last dose of Zoladex was given on 01/03/2018 Switched to 6 monthly Zoladex on 05/08/2018 , and Casodex was discontinued, As follow-up bone scan and CT scan of Pelvis showed no evidence of disease and PSA within normal limit so next dose due in 2 months as Urethral stricture mild Follow-up CT scan of abdomen pelvis done on 05/03/2018 showed no evidence of metastatic disease but rectosigmoid colon junction wall thickening follow-up endoscopic suggested.Colonoscopy done on 06/08/2018 showed proximal descending colon sessile polyps, both were removed and in proximal sigmoid colon, multiple medium-sized diverticula were present. Bone scan done on 05/03/2018 showed no evidence of bone metastases Because of progressive PSA, follow-up bone scan/CT scan of abdomen pelvis done on December 16, 2020, showed no evidence of recurrence of disease Plan: Discussed with patient regarding his labs, PSA 3.90 compared to 2.91 on November 17, 2020 and testosterone is 2.5, follow-up CT scan of abdomen pelvis done on December 16, 2020 and bone scan done on same date showed no evidence of recurrence of disease Clinically, patient is doing well with no new signs symptom but his follow-up PSA continues to go up now 3.9 compared to 2.9 previously but his follow-up bone scan and CT scan of abdomen pelvis showed no evidence of recurrence of disease, at this point we will continue to monitor and he will return to clinic in 2 months at that time we will check his PSA if it continues to go up, will consider choline CT PET scan. Patient and agreed. Return to clinic in 2 months with PSA and prior 3 monthly Zoladex. Signed By: Florence Chavarria M.D. <<Signature on File>>
== END 2020-12-22 11:59 | disposition home or self-care (01) ==
LOC: ONCMED 12:02
PROVIDERS: PCP Family Medicine; Visit Provider Internal Medicine Hematology & Oncology
DX: Z08 Encounter for follow-up examination after completed treatment for malignant neoplasm (principal); Z85.46 Personal history of malignant neoplasm of prostate; R97.20 Elevated prostate specific antigen [PSA]; N35.919 Unspecified urethral stricture, male, unspecified site; Z79.899 Other long term (current) drug therapy; Z92.21 Personal history of antineoplastic chemotherapy
CPT/HCPCS: 36415; 84153; 84403; 99214

== ENCOUNTER 2021-02-23 11:58 | Outpatient (CLI) | payer MEDICARE, OTHER, SELFPAY ==
[2021-02-23] MEDS: lidocaine 1% INJ 20 mL INJECTION (14:40)
[2021-02-23] MEDS: goserelin acetate 10.8 mg Implant SUBCUT (14:50)
--- NOTE | 2021-02-23 15:23 | ONC FU_ITS ---
Dr. Chavarria follow up note Patient: Lorenzo Desouza Unit #: [id number]: 1940 Dicatated By: Florence Chavarria M.D.Date of Visit:Feb 23, 2021 Onc Med Follow-up/Prog Note History of Present Illness: Mr. Deo Ventura is a 80-year-old gentleman with history of prostate cancer initially diagnosed in 2001 at that time his PSA was 14.3 and Skylar score was 3+4 and he was treated with radical prostatectomy with negative lymph nodes but positive extraprostatic extension with positive margins. Follow-up showed rising PSA for that he underwent adjuvant radiation therapy which was completed in March 2003. Was doing well until March 2014 when he was started on LHRH agonist therapy for slowly rising PSA and in May 2015 is a PSA was 37 so he was started on combined androgen blockade with that he had excellent response and his last PSA checked 07/06/2017 it was less than 0.04 and same day he received his 3 monthly dose of Zoladex 10.8 mg and he is also taking Casodex 50 mg daily.And continued with 3 monthly Zoladex till 01/03/2018 at that time it was changed to every 6 months and Casodex was discontinued.Switched to 3 monthly Zoladex alone on 01/10/2019 because of progressive PSA, Casodex was added again on 07/15/2019 for progressive PSA, his PSA was 1.64, compared to 0.95 on 04/10/2019 and 0.67 on 01/08/2019 CT scan of pelvis done on 05/03/2018 showed no evidence of metastatic disease but rectosigmoid colon junction wall thickening for which patient underwent colonoscopy on 06/08/2018 which showed proximal descending colon sessile polyps , were completely removed and proximal sigmoid colon also showed multiple medium diverticula Mammogram done on November 13, 2019 questionable fullness and it came back benign with mild soft tissue thickening in the flame shaped distribution seen in the lateral alveolar area on breast sonogram is most typical for very minimal gynecomastia. tolerating ADT with Zoladex/Casodex well, Casodex discontinued on August 16, 2020 Due to progressive PSA level,, Follow-up follow-up bone scan done on December 16, 2020 shows uptake in anterior seventh and eighth rib likely due to rib fractures, no suspicious foci of uptake no evidence of metastatic disease, CT scan of abdomen pelvis done on December 16, 2020 showed no evidence of metastatic disease in abdomen or pelvis, diffuse fatty infiltration liver. Slightly ectatic infrarenal abdominal aorta measuring 2.2 x 2.4 cm Came for follow-up, denies any specific complaint except progressive dyspnea on exertion, patient has COPD/emphysema and still smoke about pack a day, has not seen pulmonology but denies any chest pain or palpitation, denies any new bony pains, denies any hematuria or dysuria, denies any hemoptysis or hematemesis denies any jaundice., Tolerating Zoladex well otherwise Medications: Acetaminophen 1 (325 mg) Tablet Oral daily PRN, Allergy Relief 1 (10 mg) Tablet Oral daily, Clotrimazole-Betamethasone 1 (1-0.05 %) Lotion Topical b.i.d. PRN, Ibuprofen 1 (200 mg) Tablet Oral q 4 to 6 hours PRN, ProAir HFA 1 - 2 puff(s) (of 108 (90 base) mcg/act) Aerosol, solution Inhalation q 6 hours PRN, Symbicort 1 puff(s) (of 80-4.5 mcg/act) Aerosol Inhalation b.i.d. Allergies: No Known Allergies. Review of Systems: Review of Systems is not available for this patient. Vital Signs: Performed on Feb 23, 2021 14:45 Height - 70.00 in Weight - 222.4 lbs (LOW) BSA - 2.18 sq.m BMI - 31.91 (HIGH) Temperature - 97.7 F (LOW) Pulse - 72 /min Respiration - 18 /min BP - 147/72 mm(hg) (HIGH) O2 Sat - 94 % (LOW) Pain - 0 Fatigue - 9 Performance Status: 0 - Fully active, able to carry on all predisease activities without restrictions. (ECOG) Physical Examination: ENMT - No mouth sores, no thrush, no jaundice, Respiratory - Poor air entry, mild wheezing bilaterally, Cardiovascular - Regular rate and rhythm of heart, Abdomen - Soft, bowel sounds present, Extremities - No visible edema. Lab/Imaging: Most recent lab results are not available for this patient. Impression: Prostrate cancer initially diagnosed in 2001 with PSA 14.3, left nodule and [place] score 3+4 while 1 biopsy status post radical prostatectomy with negative lymph nodes but positive extra prostatic extension with positive margins. Followed by adjuvant radiation therapy completed in March 2003 History of rising PSA treated with and and LHRH agonist therapy beginning March 2014 and later PSA continued to go up initiated on combined androgen blockade with Zoladex and Casodex in May 2015 for PSA 37. With excellent response last PSA on 07/06/2017 was less than 0.04 and testosterone less than 23 .Last dose of Zoladex was given on 01/03/2018 Switched to 6 monthly Zoladex on 05/08/2018 , and Casodex was discontinued, As follow-up bone scan and CT scan of Pelvis showed no evidence of disease and PSA within normal limit so next dose due in 2 months as Urethral stricture mild Follow-up CT scan of abdomen pelvis done on 05/03/2018 showed no evidence of metastatic disease but rectosigmoid colon junction wall thickening follow-up endoscopic suggested.Colonoscopy done on 06/08/2018 showed proximal descending colon sessile polyps, both were removed and in proximal sigmoid colon, multiple medium-sized diverticula were present. Bone scan done on 05/03/2018 showed no evidence of bone metastases Because of progressive PSA, follow-up bone scan/CT scan of abdomen pelvis done on December 16, 2020, showed no evidence of recurrence of disease Plan: Discussed with patient regarding his labs PSA 5.0 compared to 3.9 previously Clinically, patient doing well with no new signs symptom suggestive of recurrence of disease but his PSA continues to go up, at this point, will proceed with his next 3 monthly dose of Zoladex today and then he will return to clinic in 3 months with CMP and PSA and discussed with patient regarding: CT PET scan, patient wants to wait for another reading before he consider. As per generalized weakness and fatigue and dyspnea on exertion is concerned, most likely due to progressive COPD/emphysema, patient was advised to quit smoking and was offered any assistance he may need, will also consider referral to pulmonology for evaluation to optimize his pulmonary function test and treatment with bronchodilator, Signed By: Florence Chavarria M.D. <<Signature on File>>
== END 2021-02-23 11:59 | disposition home or self-care (01) ==
LOC: ONCMED 12:02
PROVIDERS: PCP Family Medicine; Visit Provider Internal Medicine Hematology & Oncology
DX: C61 Malignant neoplasm of prostate (principal); R97.20 Elevated prostate specific antigen [PSA]; N35.819 Other urethral stricture, male, unspecified site; Z79.818 Long term (current) use of other agents affecting estrogen receptors and estrogen levels
CPT/HCPCS: 84153; 96372; 96402; 99215; J9202

== ENCOUNTER 2021-04-07 12:00 | Outpatient (CLI) | payer MEDICARE, OTHER, SELFPAY | END 2021-04-07 12:01 | disposition home or self-care (01) | LOC: SLEEP 04-08 11:53 | PROVIDERS: PCP Family Medicine; Visit Provider Internal Medicine Critical Care Medicine | DX: G47.10 Hypersomnia, unspecified (principal) | CPT/HCPCS: G0399 ==

== ENCOUNTER → 2021-04-12 11:59 | Outpatient (BNVA) | payer MEDICARE, OTHER, SELFPAY | PROVIDERS: PCP Family Medicine; Visit Provider Internal Medicine Critical Care Medicine | DX: Z01.812 Encounter for preprocedural laboratory examination (principal) | CPT/HCPCS: 87635 ==

== ENCOUNTER 2021-04-20 09:11 | Outpatient (CLI) | payer MEDICARE, OTHER, SELFPAY ==
--- NOTE | 2021-04-20 12:59 | PFTS_ITS ---
Date of Study:04/20/21 Date of Dictation: MECHANICS: Forced vital capacity (FVC) is reduced. Forced expiratory volume in one second (FEV1) is reduced. FEV1/FVC is reduced. FLOW VOLUME LOOP: Reduced flow at all lung volumes with significant scooping. LUNG VOLUMES: Total lung capacity (TLC) is normal. Residual volume (RV) is increased. DIFFUSING CAPACITY FOR CARBON MONOXIDE: Severely reduced. INTERPRETATION: The prebronchodilator spirometry is consistent with moderate airflow obstruction. No postbronchodilator spirometry was performed. Lung volumes are consistent with air trapping. Gas exchange (DLCO) is severely reduced. MTDD
== END 2021-04-20 09:12 | disposition home or self-care (01) ==
LOC: RT 09:16
PROVIDERS: PCP Family Medicine; Visit Provider Internal Medicine Critical Care Medicine
DX: J44.9 Chronic obstructive pulmonary disease, unspecified (principal)
CPT/HCPCS: 94010; 94618; 94726; 94729

== ENCOUNTER 2021-05-21 08:57 | Outpatient (CLI) | payer MEDICARE, OTHER, SELFPAY ==
[2021-05-21 10:06] LABS: Alanine Aminotransferase 14 U/L (0-41); Albumin Level 3.8 g/dL (3.5-5.2); Alkaline Phosphatase 72 IU/L (40-130); Anion Gap 13.1 (5-19); Aspartate Amino Transferase 14 U/L (0-40); Blood Urea Nitrogen 19 mg/dL (8-23); Calcium 8.5 mg/dL (8.5-10.5); Carbon Dioxide 28 mmol/L (22-29); Chloride 102 mmol/L (98-107); Globulin 2.3 g/dL (1.3-4.6); Glucose 99 mg/dL (65-115); Osmolality Calculated 288 mOsm/kg (285-295); Potassium 5.1 mmol/L (3.5-5.1); Sodium 138 mmol/L (136-145); Total Bilirubin 0.3 mg/dL (0.15-1.2); Total Protein 6.1 g/dL (6.6-8.7)
--- NOTE | 2021-05-21 11:06 | ONC FU_ITS ---
Dr. Chavarria follow up note Patient: Lorenzo Desouza Unit #: [id number]: 1940 Dicatated By: Florence Chavarria M.D.Date of Visit:May 21, 2021 Onc Med Follow-up/Prog Note History of Present Illness: Mr. Deo Ventura is a 81-year-old gentleman with history of prostate cancer initially diagnosed in 2001 at that time his PSA was 14.3 and Skylar score was 3+4 and he was treated with radical prostatectomy with negative lymph nodes but positive extraprostatic extension with positive margins. Follow-up showed rising PSA for that he underwent adjuvant radiation therapy which was completed in March 2003. Was doing well until March 2014 when he was started on LHRH agonist therapy for slowly rising PSA and in May 2015 is a PSA was 37 so he was started on combined androgen blockade with that he had excellent response and his last PSA checked 07/06/2017 it was less than 0.04 and same day he received his 3 monthly dose of Zoladex 10.8 mg and he is also taking Casodex 50 mg daily.And continued with 3 monthly Zoladex till 01/03/2018 at that time it was changed to every 6 months and Casodex was discontinued.Switched to 3 monthly Zoladex alone on 01/10/2019 because of progressive PSA, Casodex was added again on 07/15/2019 for progressive PSA, his PSA was 1.64, compared to 0.95 on 04/10/2019 and 0.67 on 01/08/2019 CT scan of pelvis done on 05/03/2018 showed no evidence of metastatic disease but rectosigmoid colon junction wall thickening for which patient underwent colonoscopy on 06/08/2018 which showed proximal descending colon sessile polyps , were completely removed and proximal sigmoid colon also showed multiple medium diverticula Mammogram done on November 13, 2019 questionable fullness and it came back benign with mild soft tissue thickening in the flame shaped distribution seen in the lateral alveolar area on breast sonogram is most typical for very minimal gynecomastia. tolerating ADT with Zoladex/Casodex well, Casodex discontinued on August 16, 2020 Due to progressive PSA level,, Follow-up follow-up bone scan done on December 16, 2020 shows uptake in anterior seventh and eighth rib likely due to rib fractures, no suspicious foci of uptake no evidence of metastatic disease, CT scan of abdomen pelvis done on December 16, 2020 showed no evidence of metastatic disease in abdomen or pelvis, diffuse fatty infiltration liver. Slightly ectatic infrarenal abdominal aorta measuring 2.2 x 2.4 cm Came for follow-up, denies any specific complaints, no fever chills, no nausea or vomiting, no diarrhea constipation, patient felt better after seeing pulmonology and who adjusted his bronchodilator. Occasionally hot flashes otherwise tolerating 3 monthly Zoladex well, denies any new bony pains denies any hematuria or dysuria otherwise Medications: Acetaminophen 1 (325 mg) Tablet Oral daily PRN, Allergy Relief 1 (10 mg) Tablet Oral daily, Clotrimazole-Betamethasone 1 (1-0.05 %) Lotion Topical b.i.d. PRN, Ibuprofen 1 (200 mg) Tablet Oral q 4 to 6 hours PRN, ProAir HFA 1 - 2 puff(s) (of 108 (90 base) mcg/act) Aerosol, solution Inhalation q 6 hours PRN, Symbicort 1 puff(s) (of 80-4.5 mcg/act) Aerosol Inhalation b.i.d. Allergies: No Known Allergies. Review of Systems: Review of Systems is not available for this patient. Vital Signs: Vitals are not available for this patient. Performance Status: 0 - Fully active, able to carry on all predisease activities without restrictions. (ECOG) Physical Examination: ENMT - No mouth sores, no thrush, no jaundice, Respiratory - Lungs are clear to auscultation, Cardiovascular - Regular rate and rhythm of heart, Abdomen - Soft, bowel sounds present, Extremities - No visible edema. Lab/Imaging: Most recent lab results are not available for this patient. Impression: Prostrate cancer initially diagnosed in 2001 with PSA 14.3, left nodule and Skylar score 3+4 while 1 biopsy status post radical prostatectomy with negative lymph nodes but positive extra prostatic extension with positive margins. Followed by adjuvant radiation therapy completed in March 2003 History of rising PSA treated with and and LHRH agonist therapy beginning March 2014 and later PSA continued to go up initiated on combined androgen blockade with Zoladex and Casodex in May 2015 for PSA 37. With excellent response last PSA on 07/06/2017 was less than 0.04 and testosterone less than 23 .Last dose of Zoladex was given on 01/03/2018 Switched to 6 monthly Zoladex on 05/08/2018 , and Casodex was discontinued, As follow-up bone scan and CT scan of Pelvis showed no evidence of disease and PSA within normal limit so next dose due in 2 months as Urethral stricture mild Follow-up CT scan of abdomen pelvis done on 05/03/2018 showed no evidence of metastatic disease but rectosigmoid colon junction wall thickening follow-up endoscopic suggested.Colonoscopy done on 06/08/2018 showed proximal descending colon sessile polyps, both were removed and in proximal sigmoid colon, multiple medium-sized diverticula were present. Bone scan done on 05/03/2018 showed no evidence of bone metastases Because of progressive PSA, follow-up bone scan/CT scan of abdomen pelvis done on December 16, 2020, showed no evidence of recurrence of disease Plan: Discussed with patient regarding his labs his CMP shows values within normal range, PSA 6.17 compared to 5 on February 23 2021 and 3.9 on December 22 2020 and 1.8 on August Clinically, patient is doing well with no new signs symptoms suggestive of recurrence of disease but his PSA continues to go up compared to 1.8 on August now is gone up to 6.17, at this point , we will consider PSMA scan to identify disease which may be amenable to SBRT., In the meantime, we will continue with his 3 monthly dose of Zoladex today and then patient will return to clinic after PSMA scan done for further discussion Signed By: Florence Chavarria M.D. <<Signature on File>>
[2021-05-21] MEDS: lidocaine 1% INJ 20 mL INJECTION (11:12)
[2021-05-21] MEDS: goserelin acetate 10.8 mg Implant SUBCUT (11:26)
== END 2021-05-21 08:58 | disposition home or self-care (01) ==
LOC: ONCMED 08:59
PROVIDERS: PCP Family Medicine; Visit Provider Internal Medicine Hematology & Oncology
DX: R97.21 Rising PSA following treatment for malignant neoplasm of prostate (principal); Z85.46 Personal history of malignant neoplasm of prostate
CPT/HCPCS: 36415; 80053; 84153; 96372; 96402; 99215; J9202

== ENCOUNTER 2021-06-16 12:38 | Outpatient (CLI) | payer MEDICARE, OTHER, SELFPAY ==
--- NOTE | 2021-06-16 12:45 | XR_ITS ---
WS: [id number] PA and lateral chest, 06/16/2021 Clinical Data: Shortness of breath Comparison: None. Findings: No nodules, masses or effusions are seen. The heart is normal. No pneumonia or pneumothorax is seen. Pulmonary vascularity is not increased. The aortic arch and descending thoracic aorta show tortuosity. The diaphragms are flattened. XR/XR chest 2V* 04102 Impression: Atherosclerosis and hyperinflation.
== END 2021-06-16 12:39 | disposition home or self-care (01) ==
LOC: RAD 12:40
PROVIDERS: PCP Family Medicine; Visit Provider Internal Medicine Critical Care Medicine
DX: R06.02 Shortness of breath (principal); I70.90 Unspecified atherosclerosis
CPT/HCPCS: 71046

== ENCOUNTER 2021-07-06 09:28 | Outpatient (CLI) | payer MEDICARE, OTHER, SELFPAY ==
--- NOTE | 2021-07-07 08:56 | ONC FU_ITS ---
Dr. Chavarria follow up note Patient: Lorenzo Desouza Unit #: [id number]: 1940 Dicatated By: Florence Chavarria M.D.Date of Visit:Jul 06, 2021 Onc Med Follow-up/Prog Note History of Present Illness: Mr. Deo Ventura is a 81-year-old gentleman with history of prostate cancer initially diagnosed in 2001 at that time his PSA was 14.3 and Skyl[place] score was 3+4 and he was treated with radical prostatectomy with negative lymph nodes but positive extraprostatic extension with positive margins. Follow-up showed rising PSA for that he underwent adjuvant radiation therapy which was completed in March 2003. Was doing well until March 2014 when he was started on LHRH agonist therapy for slowly rising PSA and in May 2015 is a PSA was 37 so he was started on combined androgen blockade with that he had excellent response and his last PSA checked 07/06/2017 it was less than 0.04 and same day he received his 3 monthly dose of Zoladex 10.8 mg and he is also taking Casodex 50 mg daily.And continued with 3 monthly Zoladex till 01/03/2018 at that time it was changed to every 6 months and Casodex was discontinued.Switched to 3 monthly Zoladex alone on 01/10/2019 because of progressive PSA, Casodex was added again on 07/15/2019 for progressive PSA, his PSA was 1.64, compared to 0.95 on 04/10/2019 and 0.67 on 01/08/2019 CT scan of pelvis done on 05/03/2018 showed no evidence of metastatic disease but rectosigmoid colon junction wall thickening for which patient underwent colonoscopy on 06/08/2018 which showed proximal descending colon sessile polyps , were completely removed and proximal sigmoid colon also showed multiple medium diverticula Mammogram done on November 13, 2019 questionable fullness and it came back benign with mild soft tissue thickening in the flame shaped distribution seen in the lateral alveolar area on breast sonogram is most typical for very minimal gynecomastia. tolerating ADT with Zoladex/Casodex well, Casodex discontinued on August 16, 2020 Due to progressive PSA level,, Follow-up follow-up bone scan done on December 16, 2020 shows uptake in anterior seventh and eighth rib likely due to rib fractures, no suspicious foci of uptake no evidence of metastatic disease, CT scan of abdomen pelvis done on December 16, 2020 showed no evidence of metastatic disease in abdomen or pelvis, diffuse fatty infiltration liver. Slightly ectatic infrarenal abdominal aorta measuring 2.2 x 2.4 cm PSMA scan was done to see if patient has localized disease, amenable to radiation, done on June 29, 2021 showed multiple mildly tracer avid lymph nodes within the posterior mediastinum and retroperitoneum likely represent recurrent metastatic disease. Diffuse retroperitoneal stranding could represent posttreatment changes from prostatectomy and radiation, could be lymphatic obstruction from lymphadenopathy. Came for follow-up, denies any specific complaints, no fever chills, no nausea or vomiting, no diarrhea constipation, no melena or hematochezia, no dysuria or hematuria, occasionally hot flashes otherwise tolerating 3 monthly Zoladex well Medications: Acetaminophen 1 (325 mg) Tablet Oral daily PRN, Allergy Relief 1 (10 mg) Tablet Oral daily, Clotrimazole-Betamethasone 1 (1-0.05 %) Lotion Topical b.i.d. PRN, Ibuprofen 1 (200 mg) Tablet Oral q 4 to 6 hours PRN, ProAir HFA 1 - 2 puff(s) (of 108 (90 base) mcg/act) Aerosol, solution Inhalation q 6 hours PRN, Symbicort 1 puff(s) (of 80-4.5 mcg/act) Aerosol Inhalation b.i.d. Allergies: No Known Allergies. Review of Systems: Review of Systems is not available for this patient. Vital Signs: Performed on Jul 06, 2021 11:14 Height - 70.00 in Weight - 236.8 lbs (HIGH) BSA - 2.24 sq.m BMI - 33.98 (HIGH) Temperature - 97.3 F (LOW) Pulse - 74 /min Respiration - 20 /min BP - 172/85 mm(hg) (HIGH) O2 Sat - 93 % (LOW) Pain - 0 Fatigue - 4 Performance Status: 0 - Fully active, able to carry on all predisease activities without restrictions. (ECOG) Physical Examination: ENMT - No mouth sores, no thrush, no jaundice, Respiratory - Lungs are clear to auscultation, Cardiovascular - Regular rate and rhythm of heart, Abdomen - Soft, bowel sounds present, Extremities - No visible edema. Lab/Imaging: Most recent lab results are not available for this patient. Impression: Prostrate cancer initially diagnosed in 2001 with PSA 14.3, left nodule and Skylar score 3+4 while 1 biopsy status post radical prostatectomy with negative lymph nodes but positive extra prostatic extension with positive margins. Followed by adjuvant radiation therapy completed in March 2003 History of rising PSA treated with and and LHRH agonist therapy beginning March 2014 and later PSA continued to go up initiated on combined androgen blockade with Zoladex and Casodex in May 2015 for PSA 37. With excellent response last PSA on 07/06/2017 was less than 0.04 and testosterone less than 23 .Last dose of Zoladex was given on 01/03/2018 Switched to 6 monthly Zoladex on 05/08/2018 , and Casodex was discontinued, As follow-up bone scan and CT scan of Pelvis showed no evidence of disease and PSA within normal limit so next dose due in 2 months as Urethral stricture mild Follow-up CT scan of abdomen pelvis done on 05/03/2018 showed no evidence of metastatic disease but rectosigmoid colon junction wall thickening follow-up endoscopic suggested.Colonoscopy done on 06/08/2018 showed proximal descending colon sessile polyps, both were removed and in proximal sigmoid colon, multiple medium-sized diverticula were present. Bone scan done on 05/03/2018 showed no evidence of bone metastases Because of progressive PSA, follow-up bone scan/CT scan of abdomen pelvis done on December 16, 2020, showed no evidence of recurrence of disease Plan: Discussed with patient regarding his labs, PSA 6.57 compared to 6.17 previously and his PSMA scan done on June 29, 2021 showed mild tracer uptake in posterior mediastinum and retroperitoneal lymph node, Clinically, patient is doing well with no new signs symptoms suggestive of recurrence of disease but his PSMA scan shows mild uptake in posterior mediastinum/retroperitoneal lymph nodes which could be a reason for his progressive PSA, patient is on Zoladex every 3-month, tolerating well, discussed with patient regarding treatment options which was including continue with same while monitoring his PSA and if shows further progression, then consider adding another agent like Casodex or enzalutamide or abiraterone or systemic chemotherapy.,, He will return to clinic in 2 months with PSA if PSA continues to go up, will have further discussion regarding treatment options as mentioned above. While continue 3 monthly Zoladex Signed By: Florence Chavarria M.D. <<Signature on File>>
== END 2021-07-06 09:29 | disposition home or self-care (01) ==
LOC: ONCMED 09:32
PROVIDERS: PCP Family Medicine; Visit Provider Internal Medicine Hematology & Oncology
DX: Z08 Encounter for follow-up examination after completed treatment for malignant neoplasm (principal); Z85.46 Personal history of malignant neoplasm of prostate; R97.21 Rising PSA following treatment for malignant neoplasm of prostate; R59.9 Enlarged lymph nodes, unspecified
CPT/HCPCS: 36415; 84153; 99214

== ENCOUNTER 2021-08-19 13:25 | Outpatient (CLI) | payer MEDICARE, OTHER, SELFPAY ==
[2021-08-19 14:14] LABS: Basophils % 0.4 %; Eosinophils # 0.1 10^3/uL (0.0-0.8); Eosinophils % 1.2 %; Hematocrit 44.5 % (42.0-52.0); Hemoglobin 14.4 g/dL (11.7-16.6); Lymphocytes # 1.4 10^3/uL (0.8-4.8); Lymphocytes % 16.7 %; Mean Corpuscular HGB Conc 32.4 g/dL (30.0-36.0); Mean Corpuscular Hemoglobin 26.4 pg (28.0-34.0); Mean Corpuscular Volume 81.7 fl (80-94); Mean Platelet Volume 11.7 fL (7.4-10.4); Monocytes # 1.2 10^3/uL (0.2-0.9); Monocytes % 13.6 %; Neutrophils # 5.74 10^3/uL (1.8-7.7); Neutrophils % 67.6 %; Nucleated Red Blood Cells % 0 %; Platelet Count 185 10^3/cmm (130-400); Red Blood Count 5.45 10^6/uL (4.1-5.3); White Blood Count 8.5 10^3/uL (4.0-10.0)
[2021-08-19 14:35] LABS: Alanine Aminotransferase 13 U/L (0-41); Alkaline Phosphatase 68 IU/L (40-130); Anion Gap 11.8 (5-19); Aspartate Amino Transferase 14 U/L (0-40); Carbon Dioxide 27 mmol/L (22-29); Chloride 99 mmol/L (98-107); Globulin 2.3 g/dL (1.3-4.6); Glucose 96 mg/dL (65-115); Potassium 4.8 mmol/L (3.5-5.1); Sodium 133 mmol/L (136-145); Total Bilirubin 0.5 mg/dL (0.15-1.2); Total Protein 6.3 g/dL (6.6-8.7)
[2021-08-19 14:56] LABS: Blood Urea Nitrogen 24 mg/dL (8-23); Calcium 8.3 mg/dL (8.5-10.5); Osmolality Calculated 280 mOsm/kg (285-295)
[2021-08-19] MEDS: lidocaine 1% INJ 20 mL INJECTION (16:15)
[2021-08-19] MEDS: goserelin acetate 10.8 mg Implant SUBCUT (16:30)
--- NOTE | 2021-08-20 10:14 | ONC FU_ITS ---
Dr. Chavarria follow up note Patient: Lorenzo Desouza Unit #: [id number]: 1940 Dicatated By: Florence Chavarria M.D.Date of Visit:Aug 19, 2021 Onc Med Follow-up/Prog Note History of Present Illness: Mr. Deo Ventura is a 81-year-old gentleman with history of prostate cancer initially diagnosed in 2001 at that time his PSA was 14.3 and Skylar score was 3+4 and he was treated with radical prostatectomy with negative lymph nodes but positive extraprostatic extension with positive margins. Follow-up showed rising PSA for that he underwent adjuvant radiation therapy which was completed in March 2003. Was doing well until March 2014 when he was started on LHRH agonist therapy for slowly rising PSA and in May 2015 is a PSA was 37 so he was started on combined androgen blockade with that he had excellent response and his last PSA checked 07/06/2017 it was less than 0.04 and same day he received his 3 monthly dose of Zoladex 10.8 mg and he is also taking Casodex 50 mg daily.And continued with 3 monthly Zoladex till 01/03/2018 at that time it was changed to every 6 months and Casodex was discontinued.Switched to 3 monthly Zoladex alone on 01/10/2019 because of progressive PSA, Casodex was added again on 07/15/2019 for progressive PSA, his PSA was 1.64, compared to 0.95 on 04/10/2019 and 0.67 on 01/08/2019 CT scan of pelvis done on 05/03/2018 showed no evidence of metastatic disease but rectosigmoid colon junction wall thickening for which patient underwent colonoscopy on 06/08/2018 which showed proximal descending colon sessile polyps , were completely removed and proximal sigmoid colon also showed multiple medium diverticula Mammogram done on November 13, 2019 questionable fullness and it came back benign with mild soft tissue thickening in the flame shaped distribution seen in the lateral alveolar area on breast sonogram is most typical for very minimal gynecomastia. tolerating ADT with Zoladex/Casodex well, Casodex discontinued on August 16, 2020 Due to progressive PSA level,, Follow-up follow-up bone scan done on December 16, 2020 shows uptake in anterior seventh and eighth rib likely due to rib fractures, no suspicious foci of uptake no evidence of metastatic disease, CT scan of abdomen pelvis done on December 16, 2020 showed no evidence of metastatic disease in abdomen or pelvis, diffuse fatty infiltration liver. Slightly ectatic infrarenal abdominal aorta measuring 2.2 x 2.4 cm PSMA scan was done to see if patient has localized disease, amenable to radiation, done on June 29, 2021 showed multiple mildly tracer avid lymph nodes within the posterior mediastinum and retroperitoneum likely represent recurrent metastatic disease. Diffuse retroperitoneal stranding could represent posttreatment changes from prostatectomy and radiation, could be lymphatic obstruction from lymphadenopathy. Came for follow-up, denies any specific complaints, no fever chills, no nausea or vomiting, no diarrhea constipation, no new bony pains, no hot flashes, no dysuria or hematuria, tolerating 3 monthly Zoladex well. Medications: Acetaminophen 1 (325 mg) Tablet Oral daily PRN, Allergy Relief 1 (10 mg) Tablet Oral daily, Clotrimazole-Betamethasone 1 (1-0.05 %) Lotion Topical b.i.d. PRN, Ibuprofen 1 (200 mg) Tablet Oral q 4 to 6 hours PRN, ProAir HFA 1 - 2 puff(s) (of 108 (90 base) mcg/act) Aerosol, solution Inhalation q 6 hours PRN, Symbicort 1 puff(s) (of 80-4.5 mcg/act) Aerosol Inhalation b.i.d. Allergies: No Known Allergies. Review of Systems: Review of Systems is not available for this patient. Vital Signs: Performed on Aug 19, 2021 16:23 Height - 70.00 in Weight - 235.4 lbs (LOW) BSA - 2.24 sq.m BMI - 33.78 (HIGH) Temperature - 97.7 F (LOW) Pulse - 67 /min Respiration - 20 /min BP - 131/73 mm(hg) O2 Sat - 95 % (LOW) Pain - 0 Fatigue - 3 Performance Status: 0 - Fully active, able to carry on all predisease activities without restrictions. (ECOG) Physical Examination: ENMT - No mouth sores, no thrush, no jaundice, Respiratory - Lungs are clear to auscultation, Cardiovascular - Regular rate and rhythm of heart, Abdomen - Soft, bowel sounds present, Extremities - No visible edema. Lab/Imaging: Most recent lab results are not available for this patient. Impression: Prostrate cancer initially diagnosed in 2001 with PSA 14.3, left nodule and Skylar score 3+4 while 1 biopsy status post radical prostatectomy with negative lymph nodes but positive extra prostatic extension with positive margins. Followed by adjuvant radiation therapy completed in March 2003 History of rising PSA treated with and and LHRH agonist therapy beginning March 2014 and later PSA continued to go up initiated on combined androgen blockade with Zoladex and Casodex in May 2015 for PSA 37. With excellent response last PSA on 07/06/2017 was less than 0.04 and testosterone less than 23 .Last dose of Zoladex was given on 01/03/2018 Switched to 6 monthly Zoladex on 05/08/2018 , and Casodex was discontinued, As follow-up bone scan and CT scan of Pelvis showed no evidence of disease and PSA within normal limit so next dose due in 2 months as Urethral stricture mild Follow-up CT scan of abdomen pelvis done on 05/03/2018 showed no evidence of metastatic disease but rectosigmoid colon junction wall thickening follow-up endoscopic suggested.Colonoscopy done on 06/08/2018 showed proximal descending colon sessile polyps, both were removed and in proximal sigmoid colon, multiple medium-sized diverticula were present. Bone scan done on 05/03/2018 showed no evidence of bone metastases Because of progressive PSA, follow-up bone scan/CT scan of abdomen pelvis done on December 16, 2020, showed no evidence of recurrence of disease Plan: Discussed with patient regarding his labs white blood count 8.5 hemoglobin 14.4 hematocrit 44.5 platelets 185,000 CMP within normal limit except sodium 133 PSA 8.5 and compared to 6.57 on July 06, 2021 and 5 on February 23, 2021 Clinically, patient doing well with no new signs symptom suggestive of disease progression but his follow-up PSA continue to progress. In that case, we will consider adding abiraterone 250 mg p.o. daily along with prednisone 5 mg twice a day while continue with 3 monthly Zoladex, all the side effect possible benefits as well with abiraterone discussed in detail patient expressed full understanding ,further teaching done by chemotherapy nurse. Patient return to clinic 1 month after starting abiraterone with prednisone with CMP PSA and testosterone. And in the meantime we will proceed with his next 3 monthly dose of Zoladex. Signed By: Florence Chavarria M.D. <<Signature on File>>
== END 2021-08-19 13:26 | disposition home or self-care (01) ==
LOC: ONCMED 13:29
PROVIDERS: PCP Family Medicine; Visit Provider Internal Medicine Hematology & Oncology
DX: C61 Malignant neoplasm of prostate (principal); N35.919 Unspecified urethral stricture, male, unspecified site; Z79.818 Long term (current) use of other agents affecting estrogen receptors and estrogen levels; Z79.52 Long term (current) use of systemic steroids; Z79.899 Other long term (current) drug therapy
CPT/HCPCS: 36415; 80053; 84153; 85025; 96372; 96402; 99215; J9202

== ENCOUNTER → 2021-09-01 09:00 | Outpatient (BNVA) | payer MEDICARE, OTHER, SELFPAY | PROVIDERS: PCP Family Medicine; Visit Provider Internal Medicine Critical Care Medicine | DX: J44.9 Chronic obstructive pulmonary disease, unspecified (principal); G47.10 Hypersomnia, unspecified; F17.210 Nicotine dependence, cigarettes, uncomplicated; R05.3 Chronic cough; Z85.46 Personal history of malignant neoplasm of prostate | CPT/HCPCS: 99214 ==

== ENCOUNTER 2021-09-16 08:26 | Outpatient (CLI) | payer MEDICARE, OTHER, SELFPAY ==
--- NOTE | 2021-09-16 10:16 | ONC FU_ITS ---
Alexandra Scruggs Progress Note Patient: Lorenzo Desouza Unit #: [id number]: 1940 Dicatated By: Alexandra Scruggs N.P.Date of Visit:Sep 16, 2021 Onc MED Follow-up/Prog Note Chief Complaint: Prostrate cancer History of Present Illness: Mr. Deo Ventura is a 81-year-old gentleman with history of prostate cancer initially diagnosed in 2001 at that time his PSA was 14.3 and [place] score was 3+4 and he was treated with radical prostatectomy with negative lymph nodes but positive extraprostatic extension with positive margins. Follow-up showed rising PSA for that he underwent adjuvant radiation therapy which was completed in March 2003. Was doing well until March 2014 when he was started on LHRH agonist therapy for slowly rising PSA and in May 2015 is a PSA was 37 so he was started on combined androgen blockade with that he had excellent response and his last PSA checked 07/06/2017 it was less than 0.04 and same day he received his 3 monthly dose of Zoladex 10.8 mg and he is also taking Casodex 50 mg daily.And continued with 3 monthly Zoladex till 01/03/2018 at that time it was changed to every 6 months and Casodex was discontinued.Switched to 3 monthly Zoladex alone on 01/10/2019 because of progressive PSA, Casodex was added again on 07/15/2019 for progressive PSA, his PSA was 1.64, compared to 0.95 on 04/10/2019 and 0.67 on 01/08/2019 CT scan of pelvis done on 05/03/2018 showed no evidence of metastatic disease but rectosigmoid colon junction wall thickening for which patient underwent colonoscopy on 06/08/2018 which showed proximal descending colon sessile polyps , were completely removed and proximal sigmoid colon also showed multiple medium diverticula Mammogram done on November 13, 2019 questionable fullness and it came back benign with mild soft tissue thickening in the flame shaped distribution seen in the lateral alveolar area on breast sonogram is most typical for very minimal gynecomastia. tolerating ADT with Zoladex/Casodex well, Casodex discontinued on August 16, 2020 Due to progressive PSA level,, Follow-up follow-up bone scan done on December 16, 2020 shows uptake in anterior seventh and eighth rib likely due to rib fractures, no suspicious foci of uptake no evidence of metastatic disease, CT scan of abdomen pelvis done on December 16, 2020 showed no evidence of metastatic disease in abdomen or pelvis, diffuse fatty infiltration liver. Slightly ectatic infrarenal abdominal aorta measuring 2.2 x 2.4 cm PSMA scan was done to see if patient has localized disease, amenable to radiation, done on June 29, 2021 showed multiple mildly tracer avid lymph nodes within the posterior mediastinum and retroperitoneum likely represent recurrent metastatic disease. Diffuse retroperitoneal stranding could represent posttreatment changes from prostatectomy and radiation, could be lymphatic obstruction from lymphadenopathy. Patient presents today for education on abiraterone 250 mg. He is accompanied by his . He states he has been feeling well. He has good appetite. He denies fever or chills. He does have occasional night sweats. He denies shortness of breath or cough. No chest pain. No GI problems. He does have mild urinary incontinence at times. And at times he has a slow stream. He used to have to self cath himself but he no longer has to do that. He denies joint or bone pain. No headaches or dizziness. Review Of Symptoms: See above. Past Medical History: There is no documented medical history. Past Surgical History: Hernia repair Covid vaccine #2 moderna in 2020 Covid vaccine #1 moderna in 2020 Colonoscopy in 2018 Prostatectomy in 2001 Allergies: No Known Allergies. Medications: Acetaminophen 1 (325 mg) Tablet Oral daily PRN Allergy Relief 1 (10 mg) Tablet Oral daily Clotrimazole-Betamethasone 1 (1-0.05 %) Lotion Topical b.i.d. PRN Ibuprofen 1 (200 mg) Tablet Oral q 4 to 6 hours PRN ProAir HFA 1 - 2 puff(s) (of 108 (90 base) mcg/act) Aerosol, solution Inhalation q 6 hours PRN Trelegy Ellipta 1 Inhalation (of 100-62.5-25 mcg/inh) Aerosol Powder, Breath Activated Inhalation daily Family History: Mr. Desouza's mother at age 99: hypertension. Mr. Desouza's father at age 93: bph. Mr. Desouza has 1 brother who is : pancreatic cancer. Social History: Mr. Desouza is and he is retired. He is a daily smoker who smokes 1.0 pack/day. He has no history of drinking. Physical Examination: Performed on Sep 16, 2021 08:42: Height - 70.00 in, Weight - 232.6 lbs (LOW), BSA - 2.23 sq.m, BMI - 33.37 (HIGH), Temperature - 97.9 F (LOW), Pulse - 74 /min, Respiration - 20 /min, BP - 139/67 mm(hg), O2 Sat - 92 % (LOW), Pain - 0, and Fatigue - 5. Performance Status: 0 - Fully active, able to carry on all predisease activities without restrictions. (ECOG) Constitutional Alert, cooperative, oriented. Mood and affect appropriate. Appears close to chronological age. Well nourished. Well developed. Head Normocephalic; no scars. Respiratory Lungs are clear to auscultation without rhonchi or wheezing. Cardiovascular Regular rate and rhythm of heart without murmurs, gallops or rubs. Abdomen Non-tender, non-distended, no masses, ascites or hepatosplenomegaly. Good bowel sounds. No guarding or rebound tenderness. Extremities No edema Musculoskeletal No tenderness or swelling, normal range of motion without obvious weakness. Psychiatric Alert and oriented times three. Coherent speech. Verbalizes understanding of our discussions today. Laboratory: Most recent lab results are not available for this patient. Impression: Prostrate cancer initially diagnosed in 2001 with PSA 14.3, left nodule and Skylar score 3+4 while 1 biopsy status post radical prostatectomy with negative lymph nodes but positive extra prostatic extension with positive margins. Followed by adjuvant radiation therapy completed in March 2003 History of rising PSA treated with and and LHRH agonist therapy beginning March 2014 and later PSA continued to go up initiated on combined androgen blockade with Zoladex and Casodex in May 2015 for PSA 37. With excellent response last PSA on 07/06/2017 was less than 0.04 and testosterone less than 23 .Last dose of Zoladex was given on 01/03/2018 Switched to 6 monthly Zoladex on 05/08/2018 , and Casodex was discontinued, As follow-up bone scan and CT scan of Pelvis showed no evidence of disease and PSA within normal limit so next dose due in 2 months as Urethral stricture mild Follow-up CT scan of abdomen pelvis done on 05/03/2018 showed no evidence of metastatic disease but rectosigmoid colon junction wall thickening follow-up endoscopic suggested.Colonoscopy done on 06/08/2018 showed proximal descending colon sessile polyps, both were removed and in proximal sigmoid colon, multiple medium-sized diverticula were present. Bone scan done on 05/03/2018 showed no evidence of bone metastases Because of progressive PSA, follow-up bone scan/CT scan of abdomen pelvis done on December 16, 2020, showed no evidence of recurrence of disease Plan: Patient presents today accompanied by his for education on abiraterone 250 mg daily. He will be taking prednisone 5 mg p.o. twice daily concurrently. Handouts were provided to the patient and his . We discussed side effects in detail including diarrhea, fatigue, and edema. He verbalized understanding. We will check a PSA today for baseline. He will start treatment today and return to the clinic in 2 weeks for CBC and CMP. Signed By: Alexandra Scruggs N.P. <<Signature on File>>
== END 2021-09-16 08:27 | disposition home or self-care (01) ==
PROVIDERS: Nurse Practitioner Family; PCP Family Medicine; Visit Provider Internal Medicine Hematology & Oncology
DX: C61 Malignant neoplasm of prostate (principal); N35.919 Unspecified urethral stricture, male, unspecified site; I77.811 Abdominal aortic ectasia; F17.210 Nicotine dependence, cigarettes, uncomplicated; Z79.899 Other long term (current) drug therapy
CPT/HCPCS: 36415; 84153; 99214

== ENCOUNTER 2021-09-30 08:25 | Outpatient (CLI) | payer MEDICARE, OTHER, SELFPAY ==
[2021-09-30 09:00] LABS: Basophils % 0.2 %; Eosinophils # 0.1 10^3/uL (0.0-0.8); Eosinophils % 0.8 %; Hematocrit 47.7 % (42.0-52.0); Hemoglobin 15.4 g/dL (11.7-16.6); Lymphocytes # 1.3 10^3/uL (0.8-4.8); Mean Corpuscular HGB Conc 32.3 g/dL (30.0-36.0); Mean Corpuscular Hemoglobin 26.8 pg (28.0-34.0); Mean Platelet Volume 11.2 fL (7.4-10.4); Monocytes # 0.8 10^3/uL (0.2-0.9); Monocytes % 8.8 %; Neutrophils # 6.36 10^3/uL (1.8-7.7); Neutrophils % 74.6 %; Nucleated Red Blood Cells % 0 %; Platelet Count 201 10^3/cmm (130-400); Red Blood Count 5.75 10^6/uL (4.1-5.3); White Blood Count 8.5 10^3/uL (4.0-10.0)
[2021-09-30 09:19] LABS: Alanine Aminotransferase 12 U/L (0-41); Albumin Level 4.1 g/dL (3.5-5.2); Alkaline Phosphatase 82 IU/L (40-130); Blood Urea Nitrogen 25 mg/dL (8-23); Calcium 9.3 mg/dL (8.5-10.5); Carbon Dioxide 26 mmol/L (22-29); Chloride 101 mmol/L (98-107); Globulin 2.8 g/dL (1.3-4.6); Glucose 117 mg/dL (65-115); Osmolality Calculated 291 mOsm/kg (285-295); Sodium 138 mmol/L (136-145); Total Bilirubin 0.3 mg/dL (0.15-1.2); Total Protein 6.9 g/dL (6.6-8.7)
[2021-09-30 09:30] LABS: Anion Gap 15.6 (5-19); Aspartate Amino Transferase 15 U/L (0-40); Potassium 4.6 mmol/L (3.5-5.1)
--- NOTE | 2021-10-04 09:08 | ONC FU_ITS ---
Dr. Chavarria follow up note Patient: Lorenzo Desouza Unit #: [id number]: 1940 Dicatated By: Florence Chavarria M.D.Date of Visit:Sep 30, 2021 Onc Med Follow-up/Prog Note History of Present Illness: Mr. Deo Ventura is a 81-year-old gentleman with history of prostate cancer initially diagnosed in 2001 at that time his PSA was 14.3 and Skylar score was 3+4 and he was treated with radical prostatectomy with negative lymph nodes but positive extraprostatic extension with positive margins. Follow-up showed rising PSA for that he underwent adjuvant radiation therapy which was completed in March 2003. Was doing well until March 2014 when he was started on LHRH agonist therapy for slowly rising PSA and in May 2015 is a PSA was 37 so he was started on combined androgen blockade with that he had excellent response and his last PSA checked 07/06/2017 it was less than 0.04 and same day he received his 3 monthly dose of Zoladex 10.8 mg and he is also taking Casodex 50 mg daily.And continued with 3 monthly Zoladex till 01/03/2018 at that time it was changed to every 6 months and Casodex was discontinued.Switched to 3 monthly Zoladex alone on 01/10/2019 because of progressive PSA, Casodex was added again on 07/15/2019 for progressive PSA, his PSA was 1.64, compared to 0.95 on 04/10/2019 and 0.67 on 01/08/2019 CT scan of pelvis done on 05/03/2018 showed no evidence of metastatic disease but rectosigmoid colon junction wall thickening for which patient underwent colonoscopy on 06/08/2018 which showed proximal descending colon sessile polyps , were completely removed and proximal sigmoid colon also showed multiple medium diverticula Mammogram done on November 13, 2019 questionable fullness and it came back benign with mild soft tissue thickening in the flame shaped distribution seen in the lateral alveolar area on breast sonogram is most typical for very minimal gynecomastia. tolerating ADT with Zoladex/Casodex well, Casodex discontinued on August 16, 2020 Due to progressive PSA level,, Follow-up follow-up bone scan done on December 16, 2020 shows uptake in anterior seventh and eighth rib likely due to rib fractures, no suspicious foci of uptake no evidence of metastatic disease, CT scan of abdomen pelvis done on December 16, 2020 showed no evidence of metastatic disease in abdomen or pelvis, diffuse fatty infiltration liver. Slightly ectatic infrarenal abdominal aorta measuring 2.2 x 2.4 cm PSMA scan was done to see if patient has localized disease, amenable to radiation, done on June 29, 2021 showed multiple mildly tracer avid lymph nodes within the posterior mediastinum and retroperitoneum likely represent recurrent metastatic disease. Diffuse retroperitoneal stranding could represent posttreatment changes from prostatectomy and radiation, could be lymphatic obstruction from lymphadenopathy. Because of progressive PSA abiraterone 250 mg/prednisone was added on September 17, 2021 While continue with 3 monthly Zoladex Came for follow-up, denies any specific complaint except occasionally hot flashes otherwise no fever or chills, no nausea or vomiting, no diarrhea constipation, no melena hematochezia, no hemoptysis hematemesis, no chest pain or palpitation, no new bony pains, tolerating abiraterone/prednisone well along with 3 monthly Zoladex Medications: Abiraterone Acetate 1 Tablet (of 250 mg) Oral daily, Acetaminophen 1 (325 mg) Tablet Oral daily PRN, Allergy Relief 1 (10 mg) Tablet Oral daily, Clotrimazole-Betamethasone 1 (1-0.05 %) Lotion Topical b.i.d. PRN, Ibuprofen 1 (200 mg) Tablet Oral q 4 to 6 hours PRN, predniSONE 1 Tablet (of 5 mg) Oral b.i.d., ProAir HFA 1 - 2 puff(s) (of 108 (90 base) mcg/act) Aerosol, solution Inhalation q 6 hours PRN, Trelegy Ellipta 1 Inhalation (of 100-62.5-25 mcg/inh) Aerosol Powder, Breath Activated Inhalation daily Allergies: No Known Allergies. Review of Systems: Review of Systems is not available for this patient. Vital Signs: Performed on Sep 30, 2021 10:18 Height - 70.00 in Weight - 227.0 lbs (LOW) BSA - 2.20 sq.m BMI - 32.57 (HIGH) Temperature - 98.2 F (LOW) Pulse - 73 /min Respiration - 18 /min BP - 126/69 mm(hg) O2 Sat - 94 % (LOW) Pain - 0 Fatigue - 5 Performance Status: 0 - Fully active, able to carry on all predisease activities without restrictions. (ECOG) Physical Examination: ENMT - No mouth sores, no thrush, no jaundice, Respiratory - Poor air entry otherwise clear, Cardiovascular - Regular rate and rhythm of heart, Abdomen - Soft, bowel sounds present, Extremities - No visible edema. Lab/Imaging: Test performed on Sep 16, 2021 09:21 PSA 9.950 ng/mL Impression: Prostrate cancer initially diagnosed in 2001 with PSA 14.3, left nodule and Skylar score 3+4 while 1 biopsy status post radical prostatectomy with negative lymph nodes but positive extra prostatic extension with positive margins. Followed by adjuvant radiation therapy completed in March 2003 History of rising PSA treated with and and LHRH agonist therapy beginning March 2014 and later PSA continued to go up initiated on combined androgen blockade with Zoladex and Casodex in May 2015 for PSA 37. With excellent response last PSA on 07/06/2017 was less than 0.04 and testosterone less than 23 .Last dose of Zoladex was given on 01/03/2018 Switched to 6 monthly Zoladex on 05/08/2018 , and Casodex was discontinued, As follow-up bone scan and CT scan of Pelvis showed no evidence of disease and PSA within normal limit so next dose due in 2 months as Urethral stricture mild Follow-up CT scan of abdomen pelvis done on 05/03/2018 showed no evidence of metastatic disease but rectosigmoid colon junction wall thickening follow-up endoscopic suggested.Colonoscopy done on 06/08/2018 showed proximal descending colon sessile polyps, both were removed and in proximal sigmoid colon, multiple medium-sized diverticula were present. Bone scan done on 05/03/2018 showed no evidence of bone metastases Because of progressive PSA, follow-up bone scan/CT scan of abdomen pelvis done on December 16, 2020, showed no evidence of recurrence of disease Plan: Discussed with patient regarding his labs White blood count 8.5 hemoglobin 15.4 hematocrit 47.7 platelets 201,000 CMP within normal limits Clinically, patient doing well with no new signs symptom suggestive of disease progression, but because of progressive PSA, abiraterone/prednisone was added to 3 monthly Zoladex, patient is tolerating well, no diarrhea, no lab including abnormality including electrolyte imbalance noted, we will continue with same and he will return to clinic in 1 month with PSA and CMP Signed By: Florence Chavarria M.D. <<Signature on File>>
== END 2021-09-30 08:26 | disposition home or self-care (01) ==
PROVIDERS: PCP Family Medicine; Visit Provider Internal Medicine Hematology & Oncology
DX: C61 Malignant neoplasm of prostate (principal); N35.919 Unspecified urethral stricture, male, unspecified site; I77.811 Abdominal aortic ectasia; F17.210 Nicotine dependence, cigarettes, uncomplicated; Z79.899 Other long term (current) drug therapy
CPT/HCPCS: 36415; 80053; 85025; 99214

== ENCOUNTER → 2021-10-12 08:55 | Outpatient (BNVA) | payer MEDICARE, OTHER, SELFPAY | PROVIDERS: PCP Family Medicine; Referring Provider Family Medicine; Visit Provider Podiatrist Foot & Ankle Surgery | DX: Q82.8 Other specified congenital malformations of skin (principal); F17.210 Nicotine dependence, cigarettes, uncomplicated | CPT/HCPCS: 17110; 99203 ==

== ENCOUNTER 2021-12-03 08:05 | Oncology outpatient (recurring) (ONCR) | payer MEDICARE, OTHER, SELFPAY ==
[2021-12-03 09:10] LABS: Alanine Aminotransferase 14 U/L (0-41); Albumin Level 3.9 g/dL (3.5-5.2)
[2021-12-03 09:49] LABS: Alkaline Phosphatase 78 IU/L (40-130); Blood Urea Nitrogen 24 mg/dL (8-23); Calcium 9.1 mg/dL (8.5-10.5); Carbon Dioxide 27 mmol/L (22-29); Chloride 101 mmol/L (98-107); Globulin 2.6 g/dL (1.3-4.6); Glucose 96 mg/dL (65-115); Osmolality Calculated 290 mOsm/kg (285-295); Prostate Specific Antigen < 0.014 ng/mL (0-4); Sodium 138 mmol/L (136-145); Total Bilirubin 0.3 mg/dL (0.15-1.2); Total Protein 6.5 g/dL (6.6-8.7)
[2021-12-03 09:50] LABS: Anion Gap 14.6 (5-19); Potassium 4.6 mmol/L (3.5-5.1)
[2021-12-03 09:51] LABS: Aspartate Amino Transferase 14 U/L (0-40)
[2021-12-03] MEDS: lidocaine 1% INJ 20 mL SUBCUT (09:54)
[2021-12-03] MEDS: goserelin acetate 10.8 mg Implant SUBCUT (10:20)
== END 2021-12-16 23:59 | disposition home or self-care (01) ==
PROVIDERS: Internal Medicine Hematology & Oncology; PCP Family Medicine; Visit Provider Nurse Practitioner Family
DX: C61 Malignant neoplasm of prostate (principal); R97.21 Rising PSA following treatment for malignant neoplasm of prostate; N35.919 Unspecified urethral stricture, male, unspecified site; Z86.010 Personal history of colon polyps; Z79.818 Long term (current) use of other agents affecting estrogen receptors and estrogen levels; Z79.52 Long term (current) use of systemic steroids
CPT/HCPCS: 80053; 84153; 96372; 96402; 99214; J9202

== ENCOUNTER → 2021-12-07 14:11 | Outpatient (BNVA) | payer MEDICARE, OTHER, SELFPAY | PROVIDERS: PCP Family Medicine; Visit Provider Podiatrist Foot & Ankle Surgery | DX: Q82.8 Other specified congenital malformations of skin (principal); M79.671 Pain in right foot | CPT/HCPCS: 17110 ==

== ENCOUNTER → 2021-12-30 08:49 | Outpatient (BNVA) | payer MEDICARE, OTHER, SELFPAY | PROVIDERS: PCP Family Medicine; Visit Provider Internal Medicine Critical Care Medicine | DX: J44.9 Chronic obstructive pulmonary disease, unspecified (principal); G47.10 Hypersomnia, unspecified; F17.210 Nicotine dependence, cigarettes, uncomplicated; R05.3 Chronic cough; Z85.46 Personal history of malignant neoplasm of prostate | CPT/HCPCS: 99214 ==

== ENCOUNTER 2022-03-07 12:11 | Oncology outpatient (recurring) (ONCR) | payer MEDICARE, OTHER, SELFPAY ==
[2022-03-07 12:41] LABS: Basophils % 0.5 %; Eosinophils # 0.2 10^3/uL (0.0-0.8); Eosinophils % 2.2 %; Hematocrit 43.9 % (42.0-52.0); Hemoglobin 14.3 g/dL (11.7-16.6); Lymphocytes # 1.4 10^3/uL (0.8-4.8); Lymphocytes % 16.3 %; Mean Corpuscular HGB Conc 32.6 g/dL (30.0-36.0); Mean Corpuscular Hemoglobin 26.9 pg (28.0-34.0); Mean Corpuscular Volume 82.7 fl (80-94); Mean Platelet Volume 10.6 fL (7.4-10.4); Monocytes # 0.8 10^3/uL (0.2-0.9); Neutrophils # 5.86 10^3/uL (1.8-7.7); Neutrophils % 70.8 %; Nucleated Red Blood Cells % 0 %; Platelet Count 193 10^3/cmm (130-400); Red Blood Count 5.31 10^6/uL (4.1-5.3); Red Cell Distribution Width 14.6 % (12.1-15.1); White Blood Count 8.3 10^3/uL (4.0-10.0)
[2022-03-07 13:11] LABS: Alanine Aminotransferase 11 U/L (0-41); Albumin Level 3.8 g/dL (3.5-5.2); Alkaline Phosphatase 82 U/L (40-130); Anion Gap 12.9 (5-19); Aspartate Amino Transferase 11 U/L (0-40); Blood Urea Nitrogen 25 mg/dL (8-23); Calcium 8.8 mg/dL (8.5-10.5); Carbon Dioxide 27 mmol/L (22-29); Chloride 103 mmol/L (98-107); Globulin 2.6 g/dL (1.3-4.6); Glucose 93 mg/dL (65-115); Osmolality Calculated 290 mOsm/kg (285-295); Potassium 4.9 mmol/L (3.5-5.1); Sodium 138 mmol/L (136-145); Total Bilirubin 0.3 mg/dL (0.15-1.2); Total Protein 6.4 g/dL (6.6-8.7)
[2022-03-07 13:13] LABS: Prostate Specific Antigen < 0.014 ng/mL (0-4)
[2022-03-07] MEDS: leuprolide 22.5 mg Kit IM (14:54)
== END 2022-03-18 23:59 | disposition home or self-care (01) ==
PROVIDERS: Internal Medicine Hematology & Oncology; PCP Family Medicine; Visit Provider Nurse Practitioner Family
DX: C61 Malignant neoplasm of prostate (principal); Z79.818 Long term (current) use of other agents affecting estrogen receptors and estrogen levels; F17.210 Nicotine dependence, cigarettes, uncomplicated; Z92.3 Personal history of irradiation
CPT/HCPCS: 36415; 80053; 84153; 85025; 96402; 99214; 99215; J9217

== ENCOUNTER → 2022-03-08 13:10 | Outpatient (BNVA) | payer MEDICARE, OTHER, SELFPAY | PROVIDERS: PCP Family Medicine; Visit Provider Podiatrist Foot & Ankle Surgery | DX: Q82.8 Other specified congenital malformations of skin (principal) | CPT/HCPCS: 17110 ==

== ENCOUNTER 2022-06-07 11:59 | Oncology outpatient (recurring) (ONCR) | payer MEDICARE, OTHER, SELFPAY ==
[2022-06-07 12:59] LABS: Alanine Aminotransferase 10 U/L (0-41); Albumin Level 3.6 g/dL (3.5-5.2); Alkaline Phosphatase 76 U/L (40-130); Aspartate Amino Transferase 12 U/L (0-40); Blood Urea Nitrogen 22 mg/dL (8-23); Carbon Dioxide 28 mmol/L (22-29); Chloride 101 mmol/L (98-107); Globulin 2.4 g/dL (1.3-4.6); Glucose 103 mg/dL (65-115); Osmolality Calculated 284 mOsm/kg (285-295); Sodium 135 mmol/L (136-145); Total Bilirubin 0.3 mg/dL (0.15-1.2)
[2022-06-07 13:01] LABS: Anion Gap 10.7 (5-19); Potassium 4.7 mmol/L (3.5-5.1); Prostate Specific Antigen < 0.014 ng/mL (0-4)
[2022-06-07] MEDS: leuprolide 22.5 mg Kit IM (15:36)
== END 2022-06-18 23:59 | disposition home or self-care (01) ==
PROVIDERS: PCP Family Medicine; Visit Provider Internal Medicine Hematology & Oncology
DX: C61 Malignant neoplasm of prostate (principal); Z79.818 Long term (current) use of other agents affecting estrogen receptors and estrogen levels; F17.210 Nicotine dependence, cigarettes, uncomplicated; Z92.3 Personal history of irradiation; E87.1 Hypo-osmolality and hyponatremia; Z79.52 Long term (current) use of systemic steroids; Z79.899 Other long term (current) drug therapy
CPT/HCPCS: 80053; 84153; 96402; 99214; J9217

== ENCOUNTER → 2022-07-04 09:45 | Outpatient (BNVA) | payer MEDICARE, OTHER, SELFPAY | PROVIDERS: PCP Family Medicine; Visit Provider Internal Medicine Pulmonary Disease | DX: J44.9 Chronic obstructive pulmonary disease, unspecified (principal); G47.10 Hypersomnia, unspecified; F17.210 Nicotine dependence, cigarettes, uncomplicated; Z71.6 Tobacco abuse counseling; Z85.46 Personal history of malignant neoplasm of prostate; Z91.81 History of falling | CPT/HCPCS: 99214 ==

== ENCOUNTER 2022-09-02 07:50 | Oncology outpatient (recurring) (ONCR) | payer MEDICARE, OTHER, SELFPAY ==
[2022-09-02 08:10] LABS: Basophils % 0.6 %; Eosinophils # 0.1 10^3/uL (0.0-0.8); Eosinophils % 1.9 %; Hematocrit 46.4 % (42.0-52.0); Hemoglobin 14.7 g/dL (11.7-16.6); Lymphocytes # 1.4 10^3/uL (0.8-4.8); Lymphocytes % 20.3 %; Mean Corpuscular HGB Conc 31.7 g/dL (30.0-36.0); Mean Corpuscular Volume 82.1 fl (80-94); Mean Platelet Volume 11.1 fL (7.4-10.4); Monocytes # 0.7 10^3/uL (0.2-0.9); Monocytes % 10.6 %; Neutrophils # 4.44 10^3/uL (1.8-7.7); Neutrophils % 66.3 %; Nucleated Red Blood Cells % 0 %; Platelet Count 175 10^3/cmm (130-400); Red Blood Count 5.65 10^6/uL (4.1-5.3); Red Cell Distribution Width 14.5 % (12.1-15.1); White Blood Count 6.7 10^3/uL (4.0-10.0)
[2022-09-02 08:37] LABS: Alanine Aminotransferase 10 U/L (0-41); Albumin Level 3.8 g/dL (3.5-5.2); Alkaline Phosphatase 67 U/L (40-130); Anion Gap 12.6 (5-19); Aspartate Amino Transferase 12 U/L (0-40); Blood Urea Nitrogen 21 mg/dL (8-23); Calcium 8.7 mg/dL (8.5-10.5); Carbon Dioxide 29 mmol/L (22-29); Chloride 105 mmol/L (98-107); Globulin 2.6 g/dL (1.3-4.6); Glucose 99 mg/dL (65-115); Osmolality Calculated 297 mOsm/kg (285-295); Potassium 4.6 mmol/L (3.5-5.1); Sodium 142 mmol/L (136-145); Testosterone Total 2.5 ng/dL (193-740); Total Bilirubin 0.5 mg/dL (0.15-1.2); Total Protein 6.4 g/dL (6.6-8.7)
[2022-09-02 08:45] LABS: Prostate Specific Antigen < 0.014 ng/mL (0-4)
[2022-09-02] MEDS: leuprolide 22.5 mg Kit IM (10:45)
== END 2022-09-16 23:59 | disposition home or self-care (01) ==
PROVIDERS: PCP Family Medicine; Visit Provider Internal Medicine Hematology & Oncology
DX: C61 Malignant neoplasm of prostate (principal); Z79.818 Long term (current) use of other agents affecting estrogen receptors and estrogen levels; F17.210 Nicotine dependence, cigarettes, uncomplicated; Z92.3 Personal history of irradiation; Z79.899 Other long term (current) drug therapy; Z79.52 Long term (current) use of systemic steroids
CPT/HCPCS: 36415; 80053; 84153; 84403; 85025; 96402; 99214; J9217

== ENCOUNTER 2022-11-15 10:56 | Oncology outpatient (recurring) (ONCR) | payer MEDICARE, OTHER, SELFPAY ==
[2022-10-28 11:58] LABS: Basophils % 0.5 %; Eosinophils # 0.1 10^3/uL (0.0-0.8); Eosinophils % 2.1 %; Hemoglobin 14.2 g/dL (11.7-16.6); Lymphocytes # 1.3 10^3/uL (0.8-4.8); Lymphocytes % 19.7 %; Mean Corpuscular HGB Conc 32.3 g/dL (30.0-36.0); Mean Corpuscular Hemoglobin 26.5 pg (28.0-34.0); Mean Corpuscular Volume 82.2 fl (80-94); Mean Platelet Volume 10.9 fL (7.4-10.4); Monocytes # 0.5 10^3/uL (0.2-0.9); Monocytes % 8.3 %; Neutrophils # 4.52 10^3/uL (1.8-7.7); Neutrophils % 69.1 %; Nucleated Red Blood Cells % 0 %; Platelet Count 170 10^3/cmm (130-400); Red Blood Count 5.35 10^6/uL (4.1-5.3); Red Cell Distribution Width 14.2 % (12.1-15.1); White Blood Count 6.5 10^3/uL (4.0-10.0)
[2022-10-28 12:33] LABS: Alanine Aminotransferase 10 U/L (0-41); Albumin Level 3.8 g/dL (3.5-5.2); Alkaline Phosphatase 70 U/L (40-130); Anion Gap 14.5 (5-19); Aspartate Amino Transferase 11 U/L (0-40); Blood Urea Nitrogen 21 mg/dL (8-23); Calcium 8.3 mg/dL (8.5-10.5); Carbon Dioxide 26 mmol/L (22-29); Chloride 105 mmol/L (98-107); Globulin 2.2 g/dL (1.3-4.6); Glucose 95 mg/dL (65-115); Osmolality Calculated 295 mOsm/kg (285-295); Potassium 4.5 mmol/L (3.5-5.1); Sodium 141 mmol/L (136-145); Total Bilirubin 0.2 mg/dL (0.15-1.2)
[2022-11-15 11:23] LABS: Basophils % 0.7 %; Eosinophils # 0.1 10^3/uL (0.0-0.8); Eosinophils % 2.2 %; Hematocrit 43.9 % (42.0-52.0); Hemoglobin 14.2 g/dL (11.7-16.6); Lymphocytes # 1.1 10^3/uL (0.8-4.8); Lymphocytes % 19.2 %; Mean Corpuscular HGB Conc 32.3 g/dL (30.0-36.0); Mean Corpuscular Hemoglobin 26.8 pg (28.0-34.0); Mean Corpuscular Volume 82.8 fl (80-94); Mean Platelet Volume 10.6 fL (7.4-10.4); Monocytes # 0.6 10^3/uL (0.2-0.9); Monocytes % 10.4 %; Neutrophils # 3.95 10^3/uL (1.8-7.7); Neutrophils % 67.2 %; Nucleated Red Blood Cells % 0 %; Platelet Count 193 10^3/cmm (130-400); Red Cell Distribution Width 14.1 % (12.1-15.1); White Blood Count 5.9 10^3/uL (4.0-10.0)
[2022-11-15 12:01] LABS: Alanine Aminotransferase 10 U/L (0-41); Albumin Level 3.8 g/dL (3.5-5.2); Alkaline Phosphatase 69 U/L (40-130); Anion Gap 13.6 (5-19); Aspartate Amino Transferase 10 U/L (0-40); Blood Urea Nitrogen 20 mg/dL (8-23); Calcium 8.4 mg/dL (8.5-10.5); Carbon Dioxide 26 mmol/L (22-29); Chloride 104 mmol/L (98-107); Globulin 2.3 g/dL (1.3-4.6); Glucose 103 mg/dL (65-115); Osmolality Calculated 291 mOsm/kg (285-295); Potassium 4.6 mmol/L (3.5-5.1); Sodium 139 mmol/L (136-145); Total Bilirubin 0.3 mg/dL (0.15-1.2); Total Protein 6.1 g/dL (6.6-8.7)
[2022-11-15 12:09] LABS: Prostate Specific Antigen < 0.014 ng/mL (0-4)
[2022-11-15 14:47] LABS: Testosterone Total < 2.5 ng/dL (193-740)
== END 2022-11-16 23:59 | disposition home or self-care (01) ==
PROVIDERS: PCP Family Medicine; Visit Provider Internal Medicine Hematology & Oncology
DX: C61 Malignant neoplasm of prostate (principal); Z79.818 Long term (current) use of other agents affecting estrogen receptors and estrogen levels; F17.210 Nicotine dependence, cigarettes, uncomplicated; Z92.3 Personal history of irradiation; Z79.899 Other long term (current) drug therapy; Z79.52 Long term (current) use of systemic steroids
CPT/HCPCS: 36415; 80053; 84153; 84403; 85025; 99215

== ENCOUNTER 2022-12-03 15:13 | Inpatient (IN) | payer MEDICARE, OTHER, SELFPAY ==
[2022-12-03] VITALS (11 sets, daily range): BP systolic 157–199; BP diastolic 79–98; PULSE 74–85; RESP 16–20; TEMP 36.6–36.7; O2SAT 90–97
--- NOTE | 2022-12-03 15:37 | XRR_ITS ---
PROCEDURE INFORMATION: Exam: XR Right Hip Exam date and time: 12/03/2022 4:00 PM Age: 82 years old Clinical indication: Injury or trauma; Fall; Fracture of pelvis & hip; Right; Traumatic fracture; Neck of femur; Closed fracture; Additional info: Fall, suspect fracture TECHNIQUE: Imaging protocol: Radiologic exam of the right hip. Views: 1 view hip with pelvis when performed. COMPARISON: CT abdomen pelvis w con* [id number] 12/16/2020 9:53 AM FINDINGS: Bones/joints: Impacted right femoral neck fracture. Soft tissues: Unremarkable. Intraperitoneal space: Multiple clips in the pelvis. XR/XR hip RT 2-3V wo/w pel* [id number] IMPRESSION: Right femoral neck fracture.
--- NOTE | 2022-12-03 15:48 | ED_ITS ---
HPI - Fall General: Chief Complaint: Fall Stated Complaint: RIGHT HIP PAIN S/P FALL Time Seen by Provider: 12/03/22 15:20 Source: patient and family Mode of arrival: EMS Limitations: no limitations History of Present Illness: Patient presents emergency department today brought by EMS for evaluation fany atment of injury sustained after fall. Patient had been mowing his yard. He states when he stepped off the mower, his right leg gave out and he fell onto the ground. Patient was not able to stand up and he indicates he is not able to rotate his right leg. Patient still has mobility of his toes and has full and intact sensation down the right lower extremity. He denies back pain. Patient received a skin tear to the left posterior, proximal forearm. He denies being on any blood thinners. Patient does have a history of prostate cancer and is currently undergoing treatment. Patient had a nuclear bone scan in 2019 which revealed no acute concerns for metastatic bone disease. Review of Systems General: Reports: 10 or more systems reviewed and unremarkable except in HPI and below PFSH ED PFSH: Medical History COPD (chronic obstructive pulmonary disease) Eczema Nicotine dependence, cigarettes, uncomplicated Prostate cancer Urethral stricture Surgical History H/O prostatectomy Family History Daughter Cancer Breast Brother Cancer Pancreatic Other CAD (coronary artery disease) Diabetes Suicide Denies family history of Clotting disorder Dementia Hyperlipidemia Psychiatric illness Chronic kidney disease (CKD) Anesthesia complication Bleeding disorder Lung disease Hypertension Stroke Social History Smoking and tobacco status: current every day smoker (1 ppd, smoked x 60 years) cigarettes Packs smoked per day: 1 Years cigarettes smoked: 61 [ Other cigarette details: started smoking at age 18years] Second hand smoke exposure: No Smoking risk assessment/counseling performed?: Yes Alcohol intake: never Counseling given: No Substance/Drug Use: never Counseling given: No Lives independently: Yes Household members: spouse Marital status: service: Yes Current occupational status: retired Do you think of yourself as: Straight/Heterosexual Current gender identity: Male Physical Exam Const: COMMON NORMALS: no acute distress, patient oriented x3 and alert HENMT: COMMON NORMALS: normocephalic, atraumatic and hearing grossly normal bilaterally HEAD & SCALP: normocephalic and atraumatic Eye: COMMON NORMALS: Equal, round and reactive pupils present, EOMs intact bilaterally and conjunctivae normal CONJUNCTIVA: Yes conjunctivae normal PUPIL: Yes Equal, round and reactive pupils present Neck/C-Spine: COMMON NORMALS: full ROM and no JVD Lymph: LYMPHATIC: no lymphadenopathy noted Resp: COMMON NORMALS: normal respiratory effort, No retractions and No use of accessory muscles Cardio: COMMON NORMALS: no JVD and regular rate RATE: regular rate Extremity: NARRATIVE EXTREMITY EXAM: RLE is shortened and rotated outward. Can wiggle toes but cannot roll his leg over. Neuro: COMMON NORMALS: patient oriented x3 SENSORIUM/ORIENTATION: Yes alert OTHER: Patient with sensation intact throughout the length of the right lower extremity. Psych: COMMON NORMALS: mental status grossly normal, Normal thought process present, cooperative and normal affect THOUGHT PROCESS: Normal thought process present Skin: COMMON NORMALS: no rashes or lesions noted and turgor normal NARRATIVE SKIN EXAM: pedal pulse palpable. warm, dry. Skin tear to left posterior, proximal forearm. No active bleeding. Hematoma right posterior forearm. GENERAL SKIN EXAM: no rashes or lesions noted and turgor normal Course Vital Signs: Vital signs: Vital Signs Temperature 98.0 F 12/03/22 15:19 Pulse Rate 78 12/03/22 16:18 Respiratory Rate 18 12/03/22 17:38 Blood Pressure 192/98 12/03/22 16:18 Pulse Oximetry 96 12/03/22 17:38 MDM - Fall Medical Decision Making Patient presented to the emergency department today for evaluation treatment of right hip and right leg pain. Patient indicates he is not able to bear weight, walk, or even move his right lower extremity. He does still have sensation intact throughout the length of the right lower extremity and good perfusion however, he just indicates he is not able to move the leg how he wants to. X- ray indicated a displaced fracture of the right femoral surgical neck. I did discuss with orthopedics who agreed patient should be admitted and requests admission through hospitalist services. I talked to Dr. Villalba regarding the patient's x-ray findings and request by orthopedics for admission. He agreed and patient will be transferred to the floor. Orthopedics requested further imaging including 3 view pelvis, x-ray of the right femur, right knee, and a CT of the right hip. Discussed all these findings including further imaging as well as admission with the patient who agreed to admission and further evaluation for potential surgical intervention of his fracture. Differential Diagnosis Likely syncope, compression fracture (Femoral fracture, pelvic fracture, sciatica) and concussion without loss of consciousness Lab Data 12/03/22 16:56 12/03/22 16:56 Radiology Impressions Chest X-Ray 12/03/22 16:02 IMPRESSION: No acute findings. Laboratory Results WBC 8.6 10^3/uL (4.0-10.0) 12/03/22 16:56 RBC 5.73 10^6/uL (4.1-5.3) H 12/03/22 16:56 Hgb 14.9 g/dL (11.7-16.6) 12/03/22 16:56 Hct 46.2 % (42.0-52.0) 12/03/22 16:56 MCV 80.6 fl (80-94) 12/03/22 16:56 MCH 26.0 pg (28.0-34.0) L 12/03/22 16:56 MCHC 32.3 g/dL (30.0-36.0) 12/03/22 16:56 RDW 14.0 % (12.1-15.1) 12/03/22 16:56 Plt Count 198 10^3/cmm (130-400) 12/03/22 16:56 MPV 10.5 fL (7.4-10.4) H 12/03/22 16:56 Neut % (Auto) 78.9 % 12/03/22 16:56 Lymph % (Auto) 11.3 % 12/03/22 16:56 [place] % (Auto) 8.2 % 12/03/22 16:56 Eos % (Auto) 0.8 % 12/03/22 16:56 Baso % (Auto) 0.4 % 12/03/22 16:56 Neut # (Auto) 6.76 10^3/uL (1.8-7.7) 12/03/22 16:56 Lymph # (Auto) 1.0 10^3/uL (0.8-4.8) 12/03/22 16:56 [place] # (Auto) 0.7 10^3/uL (0.2-0.9) 12/03/22 16:56 Eos # (Auto) 0.1 10^3/uL (0.0-0.8) 12/03/22 16:56 Baso # (Auto) 0.0 10^3/uL (0.0-0.1) 12/03/22 16:56 Nucleated RBC % (auto) 0 % 12/03/22 16:56 Nucleated RBCs # 0.0 /100WBC 12/03/22 16:56 PT 12.90 SECONDS (12.1-14.9) 12/03/22 16:56 INR 0.94 (0.8-1.2) 12/03/22 16:56 APTT 24.9 SECONDS (23.9-36.7) 12/03/22 16:56 Sodium 133 mmol/L (136-145) L 12/03/22 16:56 Potassium 4.4 mmol/L (3.5-5.1) 12/03/22 16:56 Chloride 98 mmol/L (98-107) 12/03/22 16:56 Carbon Dioxide 27 mmol/L (22-29) 12/03/22 16:56 Anion Gap 12.4 (5-19) 12/03/22 16:56 BUN 19 mg/dL (8-23) 12/03/22 16:56 Creatinine 0.9 mg/dL (0.7-1.2) 12/03/22 16:56 GFR Calculation Not Reportable 12/03/22 16:56 Glucose 95 mg/dL (65-115) 12/03/22 16:56 Calculated Osmolality 278 mOsm/kg (285-295) L 12/03/22 16:56 Calcium 9.0 mg/dL (8.5-10.5) 12/03/22 16:56 Total Bilirubin 0.3 mg/dL (0.15-1.2) 12/03/22 16:56 AST 13 U/L (0-40) 12/03/22 16:56 ALT 12 U/L (0-41) 12/03/22 16:56 Alkaline Phosphatase 79 U/L (40-130) 12/03/22 16:56 Total Protein 6.6 g/dL (6.6-8.7) 12/03/22 16:56 Albumin 4.0 g/dL (3.5-5.2) 12/03/22 16:56 Globulin 2.6 g/dL (1.3-4.6) 12/03/22 16:56 Discharge Plan Discharge Patient Disposition: Admitted As Inpatient Clinical Impression: Femoral neck fracture Condition: Stable Prescriptions: No Action acetaminophen [Tylenol] 325 mg tablet 325 mg PO DAILY PRN Allergy Relief (cetirizine) 10 mg capsule 10 mg PO DAILY clotrimazole-betamethasone 1-0.05 % cream 1 applic topical BID PRN ibuprofen 200 mg tablet 200 mg PO Q6H PRN Zoladex 10.8 mg implant SUBCUT albuterol sulfate [Ventolin HFA] 90 mcg/actuation HFA aerosol inhaler 2 puff inhalation Q6H PRN (Reason: shortness of breath or wheezing) Qty: 8.5 5RF prednisone 5 mg tablet 2.5 mg PO BID Qty: 60 3RF Trelegy Ellipta 100-62.5-25 mcg blister with device 1 inh inhalation DAILY 30 Days Qty: 60 6RF abiraterone [Zytiga] 250 mg tablet 250 mg PO DAILY Qty: 28 0RF Rx Instructions: must be taken with low fat meal enzalutamide 40 mg capsule 160 mg PO DAILY Qty: 120 2RF Compazine 10 mg tablet 10 mg PO Q4H PRN (Reason: Mild Nausea) Qty: 30 3RF lorazepam 1 mg tablet 0.5 - 1 mg PO Q6H PRN (Reason: Severe Nausea) Qty: 30 3RF Referrals: Loyd Goel MD [Primary Care Provider] - Coding Level of Care Code ED Rocket Scientist for Rhys Ulloa
--- NOTE | 2022-12-03 16:02 | XRR_ITS ---
PROCEDURE INFORMATION: Exam: XR Chest Exam date and time: 12/03/2022 4:05 PM Age: 82 years old Clinical indication: Injury or trauma; Fall; Other: Hip FX; Additional info: Preop TECHNIQUE: Imaging protocol: Radiologic exam of the chest. Views: 1 view. COMPARISON: CR XR chest 2V* [id number] 06/16/2021 12:51 PM FINDINGS: Lungs: Probable emphysema. Chronic interstitial scarring and atelectasis in the lung bases. No consolidation. Pleural spaces: Unremarkable. No pleural effusion. No pneumothorax. Heart/Mediastinum: Unremarkable. No cardiomegaly. Bones/joints: Unremarkable. XR/XR chest 1V portable [id number] IMPRESSION: No acute findings.
[2022-12-03] MEDS: fentaNYL 50 mcg/mL INJ 2mL IVP ×2 (16:42→18:39)
[2022-12-03 17:13] LABS: Basophils % 0.4 %; Eosinophils # 0.1 10^3/uL (0.0-0.8); Eosinophils % 0.8 %; Hematocrit 46.2 % (42.0-52.0); Hemoglobin 14.9 g/dL (11.7-16.6); Lymphocytes % 11.3 %; Mean Corpuscular HGB Conc 32.3 g/dL (30.0-36.0); Mean Corpuscular Volume 80.6 fl (80-94); Mean Platelet Volume 10.5 fL (7.4-10.4); Monocytes # 0.7 10^3/uL (0.2-0.9); Monocytes % 8.2 %; Neutrophils # 6.76 10^3/uL (1.8-7.7); Neutrophils % 78.9 %; Nucleated Red Blood Cells % 0 %; Platelet Count 198 10^3/cmm (130-400); Red Blood Count 5.73 10^6/uL (4.1-5.3); White Blood Count 8.6 10^3/uL (4.0-10.0)
[2022-12-03 17:16] LABS: INR 0.94 (0.8-1.2)
[2022-12-03 17:17] LABS: Partial Thromboplastin Time 24.9 SECONDS (23.9-36.7)
[2022-12-03 17:23] LABS: Alanine Aminotransferase 12 U/L (0-41); Alkaline Phosphatase 79 U/L (40-130); Anion Gap 12.4 (5-19); Aspartate Amino Transferase 13 U/L (0-40); Blood Urea Nitrogen 19 mg/dL (8-23); Carbon Dioxide 27 mmol/L (22-29); Chloride 98 mmol/L (98-107); Globulin 2.6 g/dL (1.3-4.6); Glucose 95 mg/dL (65-115); Osmolality Calculated 278 mOsm/kg (285-295); Potassium 4.4 mmol/L (3.5-5.1); Sodium 133 mmol/L (136-145); Total Bilirubin 0.3 mg/dL (0.15-1.2); Total Protein 6.6 g/dL (6.6-8.7)
--- NOTE | 2022-12-03 17:26 | PM.HP ---
Providers/Chief Complaint Admitting Physician: Jl Villalba MD Primary Care Provider: Loyd Goel MD Chief Complaint: RIGHT HIP PAIN S/P FALL History of Present Illness Lorenzo Desouza is a 82 year old male with a past medical history significant for COPD and prostate cancer who presents to the emergency department with fall. Reports he fell when getting off his mower. Reports right hip pain. Rates 10 out of 10. Fentanyl and morphine given in ED which he reports helped. Reports movement worsens pain. Pain meds help pain. Denies other complaints. Denies prior hx of problems with anesthesia. Denies fevers, chills, nausea or emesis. Reports associated skin tear on arm. Review of Systems Narrative: A complete review of systems was obtained and negative except for HPI findings. Medications/Allergies Home Medications Medication Instructions Recorded Confirmed Last Taken Type acetaminophen 325 mg tablet 325 mg PO DAILY PRN 03/03/21 10/31/22 Unknown History (Tylenol) cetirizine 10 mg capsule (Allergy 10 mg PO DAILY 03/03/21 10/31/22 Unknown History Relief (cetirizine)) clotrimazole-betamethasone 1 1 applic topical BID PRN 03/03/21 10/31/22 Unknown History %-0.05 % topical cream goserelin 10.8 mg subcutaneous mg SUBCUT 03/03/21 10/31/22 Unknown History implant (Zoladex) ibuprofen 200 mg tablet 200 mg PO Q6H PRN 03/03/21 10/31/22 Unknown History lorazepam 1 mg tablet 0.5 - 1 mg PO Q6H PRN Severe 03/07/22 10/31/22 Unknown Rx Nausea #30 tabs prochlorperazine maleate 10 mg 10 mg PO Q4H PRN Mild Nausea #30 03/07/22 10/31/22 Unknown Rx tablet (Compazine) tabs albuterol sulfate 90 mcg/actuation 2 puff inhalation Q6H PRN 07/04/22 10/31/22 Unknown Rx aerosol inhaler (Ventolin HFA) shortness of breath or wheezing #8.5 grams fluticasone fur. 100 mcg-umeclid 1 inh inhalation DAILY 30 days #60 08/02/22 10/31/22 Unknown Rx 62.5 mcg-vilant 25 mcg ea inhalat.powder (Trelegy Ellipta) prednisone 5 mg tablet 2.5 mg PO BID #60 tabs 09/02/22 10/31/22 Unknown Rx abiraterone 250 mg tablet (Zytiga) 250 mg PO DAILY #28 tabs 10/04/22 10/31/22 Unknown Rx enzalutamide 40 mg capsule 160 mg PO DAILY #120 caps 11/29/22 Unknown Rx Allergies Allergy/AdvReac Type Severity Reaction Status Date / Time No Known Allergies Allergy Verified 10/31/22 08:23 PFSH Acute PFSH: Medical History COPD (chronic obstructive pulmonary disease) Eczema Nicotine dependence, cigarettes, uncomplicated Prostate cancer Urethral stricture Surgical History H/O prostatectomy Family History Daughter Cancer Breast Brother Cancer Pancreatic Other CAD (coronary artery disease) Diabetes Suicide Denies family history of Clotting disorder Dementia Hyperlipidemia Psychiatric illness Chronic kidney disease (CKD) Anesthesia complication Bleeding disorder Lung disease Hypertension Stroke Social History Smoking and tobacco status: current every day smoker (1 ppd, smoked x 60 years) cigarettes Packs smoked per day: 1 Years cigarettes smoked: 61 [ Other cigarette details: started smoking at age 18years] Second hand smoke exposure: No Smoking risk assessment/counseling performed?: Yes Alcohol intake: never Counseling given: No Substance/Drug Use: never Counseling given: No Lives independently: Yes Household members: spouse Marital status: service: Yes Current occupational status: retired Do you think of yourself as: Straight/Heterosexual Current gender identity: Male Vitals/I&O/Wt Last Vital Signs Temp 98.0 F 12/03/22 15:19 Pulse 78 12/03/22 16:18 Resp 18 12/03/22 15:19 BP 192/98 12/03/22 16:18 Pulse Ox 95 12/03/22 16:18 Weight last 48 hrs Weight 103.419 kg Physical Exam Narrative: GENERAL: The patient is awake. Alert. Pleasant. HEENT: Normocephalic, atraumatic. Extraocular muscles intact. NECK: No JVD. CARDIOVASCULAR: Normal S1 and S2. No murmurs, rubs, or gallops. No peripheral edema. RESPIRATORY: Left lung w/ wheezing. No rales. No rhonchi. ABDOMEN: Soft. Not tender. Not distended. Bowel sounds present. No guarding. EXTREMITIES: No cyanosis. No clubbing. Right leg is shorter and externally rotated. SKIN: No skin rash. No jaundice. CENTRAL NERVOUS SYSTEM: Moves all 4 extremities. No myoclonus. Data 12/03/22 16:56 12/03/22 16:56 A&P Assessment and plan (1) Femoral neck fracture: Imaging reviewed, radiology read pending on some studies Ortho consulted, anticipate surgery tomorrow NPO after midnight Start scheduled Tylenol Opiates PRN Bedrest Madesn (2) Malignant neoplasm of prostate: Spoke w/ pt spouse regarding home meds, there was some question regarding his prostate cancer meds Plan to conitnue home prostate meds, spouse may need to bring some if NF (3) COPD (chronic obstructive pulmonary disease): Spouse reports she will bring Trelegy which pt prefers Breathing treatments as needed Not in acute exacerbation Plan DVT ppx: SCD, will need pharmacological ppx post op Code: Full Attestations Medical Necessity Statement*: Patient has broken right hip which will requires surgical intervention with expected hospital course to cross 2 midnights. Coding Level of Care Code Acute Code for Chg Fwd Diagnoses Femoral neck fracture S72.009A Malignant neoplasm of prostate C61 COPD (chronic obstructive pulmonary disease) J44.9
--- NOTE | 2022-12-03 17:28 | CTR_ITS ---
PROCEDURE INFORMATION: Exam: CT Right Lower Extremity Without Contrast, Hip Exam date and time: 12/03/2022 6:07 PM Age: 82 years old Clinical indication: Injury or trauma; Fall; Blunt trauma; Hip; Right; Additional info: Fall, XR with displaced fracture of femoral surgical neck- right TECHNIQUE: Imaging protocol: CT of the right lower extremity without contrast was performed. Exam focused on the hip. Radiation optimization: All CT scans at this facility use at least one of these dose optimization techniques: automated exposure control; mA and/or kV adjustment per patient size (includes targeted exams where dose is matched to clinical indication); or iterative reconstruction. REPORTING DATA: Count of CT and Cardiac NM exams in prior 12 months: This patient has received 0 known CTs and 0 known cardiac nuclear medicine studies in the 12 months prior to the current study. COMPARISON: CR (PELVIS, ) 12/03/2022 4:00 PM RADIATION DOSE METRICS: Total DLP (mGy-cm): 509.77 FINDINGS: Tubes, catheters and devices: Multiple surgical clips in the pelvis. Bones/joints: Small right hip joint hemarthrosis. Comminuted impacted and displaced fracture in the mid to distal right femoral neck. The hip joint is intact. Soft tissues: Fat containing right inguinal hernia. Small subcutaneous soft tissue contusion lateral to the right hip. CT/CT hip RT wo con* [id number] IMPRESSION: 1. Comminuted impacted right femoral neck fracture.
--- NOTE | 2022-12-03 17:28 | XRR_ITS ---
PROCEDURE INFORMATION: Exam: XR Pelvis Exam date and time: 12/03/2022 6:03 PM Age: 82 years old Clinical indication: Injury or trauma; Fall; Blunt trauma (contusions or hematomas); Right; Pelvic region; Additional info: Fall, in/out/ap views TECHNIQUE: Imaging protocol: Radiologic exam of the pelvis. Views: 1 or 2 view. COMPARISON: CR (PELVIS, ) 12/03/2022 4:00 PM FINDINGS: Bones/joints: Impacted right femoral neck fracture. No pelvis fracture identified. Soft tissues: Unremarkable. Intraperitoneal space: Surgical clips in the pelvis. XR/XR pelvis min 3V [id number] IMPRESSION: Right femoral neck fracture.
--- NOTE | 2022-12-03 17:28 | XRR_ITS ---
PROCEDURE INFORMATION: Exam: XR Right Knee Exam date and time: 12/03/2022 5:54 PM Age: 82 years old Clinical indication: Injury or trauma; Fall; Blunt trauma; Knee; Right TECHNIQUE: Imaging protocol: Radiologic exam of the right knee. Views: 3 views. COMPARISON: NM bone scan whole body* [id number] 12/16/2020 8:13 AM FINDINGS: Bones/joints: Normal. Soft tissues: Normal. Vasculature: Mild arterial calcifications. XR/XR knee RT 3V* [id number] IMPRESSION: No acute findings.
--- NOTE | 2022-12-03 17:28 | XRR_ITS ---
PROCEDURE INFORMATION: Exam: XR Right Femur Exam date and time: 12/03/2022 5:54 PM Age: 82 years old Clinical indication: Injury or trauma; Fall; Crushing; Upper leg; Right TECHNIQUE: Imaging protocol: Radiologic exam of the right femur. Views: 2 views. COMPARISON: NM bone scan whole body* [id number] 12/16/2020 8:13 AM FINDINGS: Bones/joints: Impacted right femoral neck fracture. Soft tissues: Unremarkable. Intraperitoneal space: Surgical clips in the pelvis. XR/XR femur RT min 2V* [id number] IMPRESSION: Right femoral neck fracture.
[2022-12-03] MEDS: morphine 4 mg/mL SDV 1 mL IVP (17:38)
[2022-12-03] MEDS: ondansetron 2 mg/ML SDV 2 mL 4 MG IVP (17:39)
--- NOTE | 2022-12-03 17:50 | P.CONIM_ITS ---
Providers/Reason For Consult Consulting Physician/Specialty*: Tod Baker DO/orthopedic surgery Reason for Consult*: Right femoral neck fracture Requesting Physician: Rolando KENT Attending Physician: Dr. Villalba Primary Care Provider: Loyd Goel MD History of Present Illness History of Present Illness Lorenzo Desouza is a 82 year old male presented to the emergency department fall onto the right hip. Patient has a displaced right femoral neck fracture. Patient states he was getting off of his mower planted with his left leg went to stand on his right felt his right leg give out he denies any crack or pop sensation in his hip and then fell onto his right hip and was unable to weight- bear after. At baseline he is a community ambulator lives at home with his . Patient denies any hip pain prior. He does have a history of prostate cancer this has been managed by his oncologist Dr. Chavarria and had a prostatectomy in the past he last saw oncology back in October and PSA was less than 0.014. Patient denies any fevers chills or chest pain or shortness of breath he does have a cough but he has chronic COPD at baseline. Denies any nausea or vomiting. Patient denies any hip pain prior to the injury. Orthopedics was consulted for management of right displaced femoral neck fracture and internal medicine on board and patient admitted under internal medicine as primary. Patient's chart review of medical records started back at 5 PM yesterday 12/03/2022. Per the PA in the emergency department sounds as though right leg gave out and uncertain if fracture happened prior to him falling or when he fell. Given his prostate cancer history and poor visualization of the fracture with standard x-ray imaging due to limited ability to accommodate for patient's pain and positioning recommended a CT scan for evaluation. On my evaluation of the CT scan this appears this could potentially be a pathologic lesion. As a result I contacted his oncologist to update him and see if there was any change in his care that he would recommend. At this point in time he said given how low his PSA number he would recommend treating this patient as though there is no metastatic lesion and treat this just as you would a standard displaced femoral neck fracture with a right hip hemiarthroplasty. We unfortunately do not have MRI over the weekend and as a result waiting for an MRI would delay his care and treatment over 48 hours which I do not feel would be appropriate this would not likely change my treatment algorithm anyway as this would likely show an anticipated hematoma and multiple acute reactions that could make difficult to see if pathologic lesions anyway. When speaking with oncology they recommend if going in and we can simply just send the femoral head and reamings for pathology just to verify that there was no pathologic lesion that caused the fall. Dr. Chavarria's oncologist recommend holding off on any work-up until we see these results and then go from there. He is admitted by hospitalist and medically optimized. I did verify with pathology how they would like the specimen and that this does not need to be a fresh frozen this can be placed in formalin and will be evaluated after 24 hours of decal. I updated the family this morning on the work-up my potential concerns or work-up for pathologic lesion and that my discussions with the oncologist and pathologist at this point time we will proceed with a right hip hemiarthroplasty to allow him for pain control early mobilization and will follow his path results. Patient and family understand agree with current plan and appreciative of care. Review of Systems General: Reports: 10 or more systems reviewed and unremarkable except in HPI and below Medications/Allergies Home Medications Medication Instructions Recorded Confirmed Last Taken Type acetaminophen 325 mg tablet 325 mg PO DAILY PRN 03/03/21 10/31/22 Unknown History (Tylenol) cetirizine 10 mg capsule (Allergy 10 mg PO DAILY 03/03/21 10/31/22 Unknown History Relief (cetirizine)) clotrimazole-betamethasone 1 1 applic topical BID PRN 03/03/21 10/31/22 Unknown History %-0.05 % topical cream goserelin 10.8 mg subcutaneous mg SUBCUT 03/03/21 10/31/22 Unknown History implant (Zoladex) ibuprofen 200 mg tablet 200 mg PO Q6H PRN 03/03/21 10/31/22 Unknown History lorazepam 1 mg tablet 0.5 - 1 mg PO Q6H PRN Severe 03/07/22 10/31/22 Unknown Rx Nausea #30 tabs prochlorperazine maleate 10 mg 10 mg PO Q4H PRN Mild Nausea #30 03/07/22 10/31/22 Unknown Rx tablet (Compazine) tabs albuterol sulfate 90 mcg/actuation 2 puff inhalation Q6H PRN 07/04/22 10/31/22 Unknown Rx aerosol inhaler (Ventolin HFA) shortness of breath or wheezing #8.5 grams fluticasone fur. 100 mcg-umeclid 1 inh inhalation DAILY 30 days #60 08/02/22 10/31/22 Unknown Rx 62.5 mcg-vilant 25 mcg ea inhalat.powder (Trelegy Ellipta) prednisone 5 mg tablet 2.5 mg PO BID #60 tabs 09/02/22 10/31/22 Unknown Rx abiraterone 250 mg tablet (Zytiga) 250 mg PO DAILY #28 tabs 10/04/22 10/31/22 Unknown Rx enzalutamide 40 mg capsule 160 mg PO DAILY #120 caps 11/29/22 Unknown Rx Allergies Allergy/AdvReac Type Severity Reaction Status Date / Time No Known Allergies Allergy Verified 10/31/22 08:23 PFSH Acute PFSH: Medical History COPD (chronic obstructive pulmonary disease) Eczema Nicotine dependence, cigarettes, uncomplicated Prostate cancer Urethral stricture Surgical History H/O prostatectomy Family History Daughter Cancer Breast Brother Cancer Pancreatic Other CAD (coronary artery disease) Diabetes Suicide Denies family history of Clotting disorder Dementia Hyperlipidemia Psychiatric illness Chronic kidney disease (CKD) Anesthesia complication Bleeding disorder Lung disease Hypertension Stroke Social History Smoking and tobacco status: current every day smoker (1 ppd, smoked x 60 years) cigarettes Packs smoked per day: 1 Years cigarettes smoked: 61 [ Other cigarette details: started smoking at age 18years] Second hand smoke exposure: No Smoking risk assessment/counseling performed?: Yes Alcohol intake: never Counseling given: No Substance/Drug Use: never Counseling given: No Lives independently: Yes Household members: spouse Marital status: service: Yes Current occupational status: retired Do you think of yourself as: Straight/Heterosexual Current gender identity: Male Vitals/I&O/Wt Last Vital Signs Temp 98.0 F 12/03/22 15:19 Pulse 78 12/03/22 16:18 Resp 18 12/03/22 17:38 BP 192/98 12/03/22 16:18 Pulse Ox 96 12/03/22 17:38 Weight last 48 hrs Weight 228 lb Physical Exam Narrative: Orthopedic examination: Examination of right lower extremity is shortened and externally rotated. Patient has tenderness to palpation of the right hip. Pain with logroll examination unable to perform Stinchfield secondary to pain. Patient is able to wiggle toes plantarflex and dorsiflex ankle distal pulses are palpable toes are warm well perfused. He does endorse sensation intact light touch distally to the right lower extremity. No tenderness to palpation of the right knee foot or ankle. Secondary survey examination: Patient has no tenderness to palpation of the bilateral shoulders elbows wrists or hands gross motor and sensory intact. He does have some ecchymosis and a skin tear on his left elbow this is currently dressed and dressing is not taken down. He is able to actively range these joints without any issues and he has no deformities gross motor and sensory intact. Patient does have tenderness to palpation of the lumbar spine. Examination of the left lower extremity no pain with logroll no tenderness palpation of the left hip knee foot or ankle. Gross motor and sensory intact to the left lower extremity Const: COMMON NORMALS: no acute distress, patient oriented x3 and alert HENMT: COMMON NORMALS: normocephalic and atraumatic HEAD & SCALP: normocephalic and atraumatic Resp: COMMON NORMALS: normal respiratory effort and No retractions Cardio: COMMON NORMALS: Peripheral pulses 2+ throughout PERIPHERAL PULSES: Peripheral pulses 2+ throughout Neuro: COMMON NORMALS: patient oriented x3 SENSORIUM/ORIENTATION: Yes alert Data 12/04/22 05:18 12/04/22 05:18 Xray Ortho: My impression: X-rays reviewed of the pelvis the right hip right femur and right knee reviewed in person interpreted by myself demonstrating a displaced right femoral neck fracture CT scan of the right hip reviewed by myself displaced right femoral neck fracture possible cystic or pathologic lesion noted however difficult to discern given combination impaction a right femoral neck fracture as well as fracture hematoma. Radiologist's impression: CT right hip 12/03/2022 FINDINGS: Tubes, catheters and devices: Multiple surgical clips in the pelvis. Bones/joints: Small right hip joint hemarthrosis. Comminuted impacted and displaced fracture in the mid to distal right femoral neck. The hip joint is intact. Soft tissues: Fat containing right inguinal hernia. Small subcutaneous soft tissue contusion lateral to the right hip. CT/CT hip RT wo con* [id number] IMPRESSION: 1. Comminuted impacted right femoral neck fracture. ? A&P Assessment and plan (1) Femoral neck fracture: Plan N.p.o. since midnight Pain control Nonweightbearing right lower extremity Preoperative clearance and optimization per primary team Imaging reviewed Labs reviewed Case discussed with oncologist (Dr. Chavarria) Case discussed with pathologist Case discussed with primary team Hold a.m. anticoagulation Plan for right hip hemiarthroplasty MDM: Lorenzo roth is an 82-year-old gentleman sustained a displaced right femoral neck fracture brought to the emergency department. Initially his history/HPI demonstrate he went to land on his left leg coming out of his mower and states it gave out and he fell to the ground unsure if potentially he sustained fracture prior to the fall or when he fell. Given his history of prostate cancer appropriate work-ups been done with a CT scan I have some possible conc erns of a pathologic lesion I did discuss this with his oncologist as well as our pathologist and the primary team. At this point time he has had an appropriate work-up we would already potentially know the metastatic lesion causing this. When talking with oncologist he recommends treating this as I would any standard right displaced femoral neck fracture and my plan would be for a right hip hemiarthroplasty we did talk about possibly an MRI however this is not available at our institution due to staffing over the weekend and do not feel appropriate to delay patient's care just for this imaging as I do not feel as though it would alter my treatment plan. When talking with oncologist she s tates proceed with that we will send off the femoral head and some of the reamings just to verify there was not any pathologic lesion his most recent PSA was normal his oncologist had lower concerns that this could even be a pathologic lesion and he did have a recent body scan back I believe in 2020 in an outside facility that was negative. At this point time we will proceed with a right hip hemiarthroplasty and send the femoral head and reamings for pathology and await results for further treatment recommendations or work-up per his oncologist recommendations. Patient family updated on this plan. They understand agree with it. All questions answered. We did detail out the risk benefits complication alternatives with surgical nonsurgical treatment options. Risk of surgery include not limited to make a better make it worse, blood clot, heart attack, stroke, on table, injury to nerves vessels or tendons, instability infection, hardware failure. Understanding risks with surgery they agree to proceed all questions answered. We will proceed with a right hip hemiarthroplasty today Coding Level of Care Code Acute Code for g Fwd Diagnoses Femoral neck fracture S72.009A Time Spent (min) 75
[2022-12-03] MEDS: acetaminophen 500 mg Tablet 1000 MG PO (21:00)
[2022-12-03] MEDS: HYDROmorphone 1 mg/mL INJ 1 mL 0.2 MG IVP (21:00)
[2022-12-04] VITALS (17 sets, daily range): BP systolic 115–181; BP diastolic 59–88; PULSE 70–87; RESP 16–19; TEMP 36.2–37; O2SAT 90–99
--- NOTE | 2022-12-04 00:12 | PC.NURSE ---
Post void bladder scan 433ml. Physician ordered to place grimes.
[2022-12-04] MEDS: HYDROmorphone 1 mg/mL INJ 1 mL 0.2 MG IVP (01:01)
[2022-12-04 05:31] LABS: Basophils % 0.4 %; Eosinophils # 0.2 10^3/uL (0.0-0.8); Eosinophils % 3.6 %; Hematocrit 42.7 % (42.0-52.0); Hemoglobin 13.7 g/dL (11.7-16.6); Lymphocytes % 18.3 %; Mean Corpuscular HGB Conc 32.1 g/dL (30.0-36.0); Mean Corpuscular Hemoglobin 25.9 pg (28.0-34.0); Mean Corpuscular Volume 80.9 fl (80-94); Mean Platelet Volume 10.2 fL (7.4-10.4); Monocytes # 0.7 10^3/uL (0.2-0.9); Neutrophils # 3.63 10^3/uL (1.8-7.7); Neutrophils % 64.3 %; Nucleated Red Blood Cells % 0 %; Platelet Count 181 10^3/cmm (130-400); Red Blood Count 5.28 10^6/uL (4.1-5.3); Red Cell Distribution Width 13.7 % (12.1-15.1); White Blood Count 5.6 10^3/uL (4.0-10.0)
[2022-12-04 05:58] LABS: Albumin Level 3.3 g/dL (3.5-5.2); Anion Gap 14.4 (5-19); Blood Urea Nitrogen 18 mg/dL (8-23); Calcium 8.6 mg/dL (8.5-10.5); Carbon Dioxide 25 mmol/L (22-29); Chloride 101 mmol/L (98-107); Glucose 99 mg/dL (65-115); Magnesium 2.2 mg/dL (1.7-2.3); Phosphorus 3.6 mg/dL (2.5-4.5); Potassium 4.4 mmol/L (3.5-5.1); Sodium 136 mmol/L (136-145)
--- NOTE | 2022-12-04 07:45 | P.HPUD_ITS ---
Surgery/Procedure H&P Update DATE OF PROCEDURE: December 04, 2022 DATE H&P PERFORMED: 12/04/22 CHANGES TO PREVIOUS DOCUMENTATION: None. Please refer to full consult note for details. Patient has been seen and evaluated spoken with family. Patient has a history of prostate cancer his last check with his oncologist his PSA was less than 0.014. Obtaining his history he sustained a fall while getting off his mower it sounds he went to plant on his right leg he said he felt it gave out did not feel a pop or anything but once he had he was unable to get up he was brought to emergency department has a displaced right femoral neck fracture. Given his prostate history and initially my discussion with the ED department felt a work-up for possible pathologic fracture would be appropriate we did obtain a CT scan there is some possible cystic/pathologic changes noted on CT scan. Considered MRI however that is not available at our institution over the weekend really do not feel as though this would change patient's care. I had a long thoughtful discussion with hospitalist, his oncologist Dr. Chavarria as well as her pathologist. At this point in time speaking with his oncologist he would recommend I treat this patient just as I would any standardized hip fracture. Recommended that we consider any reamings in the femoral head for pathology which I did discuss with pathologist and recommended that the femoral head and reamings to be sent in formalin. I d id discuss this all with family they understand and agree with plan. I felt no need to delay patient's care for an outside transfer for this fracture that I feel the treatment algorithm and plan would be the same. We will await his pathology results and update his oncologist. At this point time plan would be for a right hip hemiarthroplasty. He is a community ambulator at baseline he does have baseline COPD. Again we talked about treatment options far as nonoperative and operative intervention. At this point time would recommend surgical intervention of the right hip hemiarthroplasty. He understands the risk benefits complication alternatives with surgery risk of surgery include not limited to make a better make it worse blood clot, heart attack, stroke, on table, infection, instability/dislocation, leg length discrepancies. Understanding risk of surgery he agrees to proceed all questions been answered at this time. PREOP DIAGNOSIS: Right hip femoral neck fx PRIMARY INDICATION FOR PROCEDURE: Right displaced femoral neck PLANNED PROCEDURE: Operation Date: 12/04/22 08:45 Proposed Procedures p Hemiarthroplasty Hip Right(Right) - Tod Baker DO
[2022-12-04 08:03] LABS: Glucose Point of Care 103 mg/dL (70-110)
[2022-12-04] MEDS: ketorolac 30 mg/mL INJ IVP (08:06)
[2022-12-04] MEDS: acetaminophen 1,000 MG/100 ML PIGGYBACK 400 MG IV ×3 (08:06→23:45)
--- NOTE | 2022-12-04 08:09 | ECG_ITS ---
[facility] Test Date: 2022-12-04 Pat Name: Lorenzo Desouza Department: Room: 264 Gender: Male Campus Rep: : [id number] Requested By: Tod Baker Order Number: [id number] Katerina MD: Binh Lala M.D. Measurements Intervals [place] Rate: 79 P: 60 RI: 154 QRS: 18 QRSD: 93 T: 56 QT: 384 QTc: 441 Interpretive Statements SINUS RHYTHM WITH OCCASIONAL ECTOPIC PREMATURE COMPLEXES LOW QRS VOLTAGE IN PRECORDIAL LEADS [QRS DEFLECTION < 1.0 mV IN CHEST LEADS] POSSIBLE RIGHT VENTRICULAR CONDUCTION DELAY [RSR (QR) IN V1/V2] No previous ECG available for comparison Electronically Signed On 12-05-2022 7:58:37 CDT by Binh Lala M.D. [id number]
[2022-12-04] MEDS: albuterol 2.5 mg/3 mL Neb INHALATION ×2 (08:10→20:33)
[2022-12-04] MEDS: ceFAZolin 2,000 MG in sodium chloride 0.9% (plus) 50 ML 100 MG IV ×3 (08:22→23:45)
[2022-12-04] MEDS: tranexamic acid 1,000 mg/10mL SDV 1000 MG IV (08:45)
[2022-12-04] MEDS: vancomycin 1,000 MG SDV 1000 MG XX (09:39)
--- NOTE | 2022-12-04 10:19 | XRR_ITS ---
PROCEDURE INFORMATION: Exam: XR Right Hip Exam date and time: 12/04/2022 10:30 AM Age: 82 years old Clinical indication: Hip pain; Right hip; Prior surgery; Surgery date: Post-operative (0-2 days); Surgery type: Cosmo; Additional info: Post op ocsmo, do in pacu TECHNIQUE: Imaging protocol: Radiologic exam of the right hip. Views: 1 view hip with pelvis when performed. COMPARISON: CT hip RT wo/w con [id number] 12/03/2022 6:07 PM FINDINGS: Bones/joints: Patient has undergone right hip arthroplasty with placement of a bipolar right hip prosthesis that appears in satisfactory position within the left hip joint. The hardware is intact. There is no periprosthetic fracture. Soft tissues: There is some air within the soft tissues consistent with recent surgery. Surgical dahiana are noted along the skin surface. Numerous surgical dahiana present within the pelvis. XR/XR hip RT 2-3V wo/w pel* [id number] IMPRESSION: Recent right hip replacement in satisfactory position.
--- NOTE | 2022-12-04 10:20 | PM.OP2 ---
Brief Operative Note Date of procedure: 12/04/22 Pre-op diagnosis: Right femoral neck fracture Post-op diagnosis: same Procedure Done: Right hip hemiarthroplasty, cemented Surgeon: Tod Baker Estimated blood loss (mL): 100 Complications: None Post-op Plan: patient taken to PACU in stable condition recovering well spinal anesthesia on an effect. No abduction pillow on in place. Posterior hip precautions. Pain control. DVT prophylaxis postoperative antibiotics postoperative TXA. Orthopedics will continue to follow on the floor we will return to the floor postoperatively. Internal medicine on board as primary. Femoral head and neck specimens were sent for pathology for evaluation intraoperatively did not appear to have any noticeable lesions appreciated at fracture site. Condition: stable Disposition: floor Coding Level of Care Code Acute Code for Rhys Ulloa
--- NOTE | 2022-12-04 10:21 | P.OP_ITS ---
Operative Report Date of procedure: December 04, 2022 Pre-op diagnosis: Preop Diagnosis Right hip femoral neck fx Procedure: Wound did not sound as though there were was a pop Post-op diagnosis: Same Procedure done: Right hip hemiarthroplasty, cemented Implants: Martine Accolade C 132 degree femoral stem size 7 Bipolar head 58 mm Femoral head +4 mm offset 11mm distal cement spacer Surgeon: Tod Baker DO Estimated blood loss: 100 mL IV fluids: 1000mL Urine output: See anesthesia record Complications: None Findings: See operative report Condition: stable Disposition: floor Brief History: Patient was seen in the emergency department and subsequently admitted after ground-level fall getting off his mower.? Patient sustained a right displaced femoral neck fracture.? Obtaining of history does have history of prostate cancer. It sounds as though his leg gave out earlier crack however patient is unsure given his history as well as of the CT scan possible pathologic lesion. As result discussed with his oncologist who at this point time said his PSA numbers are normal and high likelihood and ultimately would recommend standard treatment for a displaced femoral neck fracture of the right hip hemiarthroplasty I did verify the pathologist the appropriate specimen and our plan after talking with family would be to treat this as a standard right hip hemiarthroplasty with the plan of sending the femoral head as well as some of the broach and reamings to verify there was no pathologic lesion noted. Patient family understand and agree to proceed with plan. Patient was subsequently admitted by the hospitalist team for medical management and preoperative clearance and optimization and the orthopedic surgery team was consulted for evaluation and treatment recommendations.? At that point time discussed with patient? treatment options.? We talked about nonoperative versus operative intervention talked about the risk benefits complication alternatives to surgical nonsurgical treatment options.? Risks of surgery were discussed and she understands and agrees to proceed with procedure.? At this point time would recommend a right hip hemiarthroplasty.? This will offer patient pain control as well as early weightbearing.? Patient was medically optimized and cleared by the primary team she was then taken to the OR.? Patient understands risk benefits complication alternatives with surgical nonsurgical treatment options.? At this point time elects to proceed with right hip hemiarthroplasty.? All questions answered.? Patient understands agrees with current plan.? All questions answered. Procedure: Patient seen evaluated the preoperative holding area.? Consent was reviewed and signed with patient.?? Pt was seen evaluated by the anesthesia department.? Once cleared for surgery patient patient was taken back to the operative suite.? Patient was then transported onto the OR table.? pt underwent anesthesia per the anesthesia department.? Once appropriately anesthetized patient was then positioned in lateral decubitus position with the right hip up.? Patient was placed on a pegboard appropriately secured to the bed all bony prominences well- padded.? Next the right lower extremity was then prepped and draped in sterile orthopedic fashion.? Final timeout performed.? Patient received appropriate preoperative antibiotics. A standard posterior incision was then made over the lateral aspect of the hip.? Sharp scalpel incision was made through skin and subcutaneous tissue I then uti lized a Amaya elevator to mobilize over the fascia.? The fascia was then split longitudinally with electrocautery.? Next a bursectomy was then performed.? I then placed Hohmann underneath the abductors.? The hip was placed under tension with internal rotation.? I then utilizing electrocautery performed a full- thickness release of the short external rotators and capsule in 1 full thick sleeve for later repair.? This was then taken down to the lesser trochanter.? Immediately on capsulotomy hematoma was noticed and displaced femoral neck fracture appreciated. Fracture appeared to be normal in nature no significant lesion was noted in the femoral neck. I then placed a Hohmann above and below the neck.? I then utilized an oscillating saw to freshen the cut this was roughly half of a fingerbreadth above the lesser as patient did fracture slightly lower on the neck.? Once this was performed this access was removed with rongeur.? I then utilized a corkscrew to remove the head.? This was then subsequently sized and measured to be a 45 mm head size.? The femoral head was then sent for pathology placed in formalin. I then thoroughly irrigated the acetabulum.? A Hohmann was placed anteriorly and thorough inspection of the acetabulum no significant arthritic changes were noted.? I then utilized a rongeur and Bovie to remove the pulvinar.? Once this was performed I irrigated the socket and then turned my attention towards the femoral preparation.? I utilized Bovie and rongeur to remove the soft tissue off of the saddle.? Once this was done a box osteotome followed by a canal finder and a lateralizing rattail rasp was used to appropriately lateralized in the canal.? Reaming/broach intramedullary canals of the femur was then placed in formalin and sent for path. I then broached to a size 7 Accolade C. Martine femoral stem which had appropriate fixation.? I was able to trial with this and this appeared to be appropriate length with ability to add slight offset/length if needed once cemented.? Once this was done I then removed the size 7 femoral stem and then subsequently proceeded with standard cementation technique.? Cement was mixed on the back table the final implant was opened and appropriately measurement on mice distal cement plug to accommodate the cement mantle and femoral stem.? This was set and impacted in place to appropriate depth.? Next I utilized the cement brush thoroughly irrigated the canal and then dry the canal tampon.? Once cement was appropriately mixed and ready for cementation informed anesthesia and they optimize patient's oxygenation cement was then impacted using cement gun and then was subsequently pressurized.? The femoral stem size 7 was then impacted in place with appropriate anteversion and held into place and all excess cement was removed and allowed to cure once cured I then trialed a standard size head which at that point there was still a little bit of shuck slightly short leg length.? As a result I then trialed a +4 mm which had excellent leg lengths as well as appropriate shuck, and excellent stability in all planes of motion with no evidence of instability.? At this point this was determined to being my final femoral head size.? This was subsequently dislocated the trial head was then removed the final implant of bipolar head 58 mm with a +4 mm offset was then opened.? The trunnion was then cleaned and this was impacted in place with excellent fixation.? I then reduced the hip this had excellent stability and appropriate leg lengths.? The wound bed was then thoroughly irrigated.? I then utilizing #5 Ethibond suture performed my repair of the capsule and short external rotators through bone tunnels. ? Wound bed was then thoroughly irrigated,1 gram vanco powder placed in wound bed. once again the IT band was closed with strata fix suture and the deep subcutaneous and subcutaneous layers were closed with 0 strata fix and 2-0 strata fix.? Skin was then closed reapproximated with dahiana.? Silverlon dressing applied.? Patient placed in abduction pillow posterior hip precautions.? pt? was awakened from anesthesia and taken to PACU in stable condition Disposition: Patient taken to PACU in stable condition will receive appropriate discharge directions as well as pain medication DVT prophylaxis postoperatively.? Patient patient will return to the floor postoperatively.? Patient will be weightbearing as tolerated to the right lower extremity.? Posterior hip precautions.? DVT prophylaxis, pain medication, postoperative antibiotics and TXA.? Patient will work with PT/OT and discharge services for discharge planning.? Femoral head and femoral approach/reamings were sent for pathology will continue to be monitored. Patient understands agrees with current plan.? All questions answered. Patient will follow-up in the orthopedic office in 2 weeks.
--- NOTE | 2022-12-04 10:21 | P.PCN_ITS ---
PACU note Narrative: Patient taken to PACU in stable condition recovering well spinal anesthesia still on affect unable assess motor or sensory secondary to spinal anesthesia dressings on in place clean dry intact appropriate leg lengths clinically. Abduction pillow on in place. Distal pulses are palpable toes warm well- perfused brisk capillary refill less than 2 seconds Exam: awake Disposition: back to floor
--- NOTE | 2022-12-04 10:30 | ANES.PREANE2 ---
Pre-Anesthetic Assessment Height/Weight: Height 1.83 m Weight 103.419 kg Temp Pulse Resp BP Pulse Ox O2 Del Method O2 Flow Rate 97.2 F L 70 18 125/61 99 Oxymask 6 12/04/22 10:12/04/22 10:12/04/22 10:26 12/04/22 10:26 12/04/22 10:26 12/04/22 10:12/04/22 10:26 Preop Diagnosis: Right hip femoral neck fx Operation Date: 12/04/22 08:45 Proposed Procedures p Hemiarthroplasty Hip Right(Right) - Tod Baker, DO Was Beta Florentino taken within 24 hours: N/A Was Clonidine taken within 24 hours: N/A Last intake: Intake Last Liquid Date 12/03/22 Last Liquid Time 21:09 Last Solid Date 12/03/22 Last Solid Time : Last Intake: 00:00 Social Tobacco and No alcohol 1 pack per day pack(s) per day Exam alert, oriented x 3 and regular rate & rhythm productive cough Airway Submandibular: within normal limits Cervical ROM: within normal limits Mallampati: Class II Dentition: chipped Medications/Allergies Home Medications Medication Instructions Recorded Confirmed Last Taken Type acetaminophen 325 mg tablet 325 mg PO DAILY PRN 03/03/21 10/31/22 Unknown History (Tylenol) cetirizine 10 mg capsule (Allergy 10 mg PO DAILY 03/03/21 10/31/22 Unknown History Relief (cetirizine)) clotrimazole-betamethasone 1 1 applic topical BID PRN 03/03/21 10/31/22 Unknown History %-0.05 % topical cream goserelin 10.8 mg subcutaneous mg SUBCUT 03/03/21 10/31/22 Unknown History implant (Zoladex) ibuprofen 200 mg tablet 200 mg PO Q6H PRN 03/03/21 10/31/22 Unknown History lorazepam 1 mg tablet 0.5 - 1 mg PO Q6H PRN Severe 03/07/22 10/31/22 Unknown Rx Nausea #30 tabs prochlorperazine maleate 10 mg 10 mg PO Q4H PRN Mild Nausea #30 03/07/22 10/31/22 Unknown Rx tablet (Compazine) tabs albuterol sulfate 90 mcg/actuation 2 puff inhalation Q6H PRN 07/04/22 10/31/22 Unknown Rx aerosol inhaler (Ventolin HFA) shortness of breath or wheezing #8.5 grams fluticasone fur. 100 mcg-umeclid 1 inh inhalation DAILY 30 days #60 08/02/22 10/31/22 Unknown Rx 62.5 mcg-vilant 25 mcg ea inhalat.powder (Trelegy Ellipta) prednisone 5 mg tablet 2.5 mg PO BID #60 tabs 09/02/22 10/31/22 Unknown Rx abiraterone 250 mg tablet (Zytiga) 250 mg PO DAILY #28 tabs 10/04/22 10/31/22 Unknown Rx enzalutamide 40 mg capsule 160 mg PO DAILY #120 caps 11/29/22 Unknown Rx Allergies Allergy/AdvReac Type Severity Reaction Status Date / Time No Known Allergies Allergy Verified 10/31/22 08:23 Current Medications Generic Name Dose Route Start Last Admin Trade Name Freq PRN Reason Stop Dose Admin Acetaminophen 1,000 mg 12/03/22 20:33 12/04/22 02:07 Acetaminophen 500 Mg Tablet PO Not Given Q6H CADENCE Hydromorphone HCl 0.2 mg 12/03/22 20:41 12/04/22 01:01 Hydromorphone 1 Mg/Ml Inj 1 Ml IVP 0.2 mg Q4H PRN Administration BREAKTHROUGH PAIN PFSH Anesthesia Medical History COPD (chronic obstructive pulmonary disease) Eczema Nicotine dependence, cigarettes, uncomplicated Prostate cancer Urethral stricture Surgical History H/O prostatectomy Family History Daughter Cancer Breast Brother Cancer Pancreatic Other CAD (coronary artery disease) Diabetes Suicide Denies family history of Clotting disorder Dementia Hyperlipidemia Psychiatric illness Chronic kidney disease (CKD) Anesthesia complication Bleeding disorder Lung disease Hypertension Stroke Social History Smoking and tobacco status: current every day smoker (1 ppd, smoked x 60 years) cigarettes Packs smoked per day: 1 Years cigarettes smoked: 61 [ Other cigarette details: started smoking at age 18years] Second hand smoke exposure: No Smoking risk assessment/counseling performed?: Yes Alcohol intake: never Counseling given: No Substance/Drug Use: never Counseling given: No Lives independently: Yes Household members: spouse Marital status: service: Yes Current occupational status: retired Do you think of yourself as: Straight/Heterosexual Current gender identity: Male Data Anesthesia 12/04/22 05:18 12/04/22 05:18 Short CBC 12/03/22 12/04/22 Range/Units 16:56 05:18 WBC 8.6 5.6 (4.0-10.0) 10^3/uL Hgb 14.9 13.7 (11.7-16.6) g/dL Hct 46.2 42.7 (42.0-52.0) % MCV 80.6 80.9 (80-94) fl Plt Count 198 181 (130-400) 10^3/cmm Neut % (Auto) 78.9 64.3 % Neut # (Auto) 6.76 3.63 (1.8-7.7) 10^3/uL BMP 12/03/22 12/04/22 16:56 05:18 Sodium 133 L 136 Potassium 4.4 4.4 Chloride 98 101 Carbon Dioxide 27 25 BUN 19 18 Creatinine 0.9 0.8 Glucose 95 99 Calcium 9.0 8.6 Liver Function 12/03/2218 Range/Units 16:56 05:18 Total Bilirubin 0.3 (0.15-1.2) mg/dL AST 13 (0-40) U/L ALT 12 (0-41) U/L Alkaline Phosphatase 79 (40-130) U/L Albumin 4.0 3.3 L (3.5-5.2) g/dL Blood Bank 12/03/22 16:56 Blood Type A Negative Rho(D) Type Negative Antibody Screen Negative Coags 12/03/22 16:56 PT 12.90 INR 0.94 APTT 24.9 Cardiac Studies: No Data to Display
--- NOTE | 2022-12-04 10:38 | P.ANESASSM_ITS ---
Pre-Anesthetic Assessment Height/Weight: Height 1.83 m Weight 103.419 kg Temp Pulse Resp BP Pulse Ox O2 Del Method O2 Flow Rate 97.2 F L 75 18 127/67 96 Oxymask 6 12/04/22 10:37 12/04/22 10:37 12/04/22 10:37 12/04/22 10:37 12/04/22 10:37 12/04/22 10:26 12/04/22 10:26 Preop Diagnosis: Right hip femoral neck fx Operation Date: 12/04/22 08:45 Proposed Procedures p Hemiarthroplasty Hip Right(Right) - Tod [place]ag[place], DO Was Beta Florentino taken within 24 hours: N/A Was Clonidine taken within 24 hours: N/A Last intake: Intake Last Liquid Date 12/03/22 Last Liquid Time 21:09 Last Solid Date 12/03/22 Last Solid Time 21:09 Airway Submandibular: within normal limits Cervical ROM: within normal limits Mallampati: Class II Comments: Comments: LUNGS: Coarse diminished BS b/l CARDIAC: RRR; no m/g/r's Pulmonary Chronic Obstructive Pulmonary Disease, Cough, Exertional Dyspnea and Shortness of Breath CV/HEM Hypertension Chronic Renal Insufficiency Prostate CA Metabolic Diabetes Mellitus [facility] Osteoarthritis/DJD Anesthetic Plan ASA status: 4 Anesthesia: General and Regional (specify below) (SAB) Medications/Allergies Home Medications Medication Instructions Recorded Confirmed Last Taken Type acetaminophen 325 mg tablet 325 mg PO DAILY PRN 03/03/21 10/31/22 Unknown History (Tylenol) cetirizine 10 mg capsule (Allergy 10 mg PO DAILY 03/03/21 10/31/22 Unknown History Relief (cetirizine)) clotrimazole-betamethasone 1 1 applic topical BID PRN 03/03/21 10/31/22 Unknown History %-0.05 % topical cream goserelin 10.8 mg subcutaneous mg SUBCUT 03/03/21 10/31/22 Unknown History implant (Zoladex) ibuprofen 200 mg tablet 200 mg PO Q6H PRN 03/03/21 10/31/22 Unknown History lorazepam 1 mg tablet 0.5 - 1 mg PO Q6H PRN Severe 03/07/22 10/31/22 Unknown Rx Nausea #30 tabs prochlorperazine maleate 10 mg 10 mg PO Q4H PRN Mild Nausea #30 03/07/22 10/31/22 Unknown Rx tablet (Compazine) tabs albuterol sulfate 90 mcg/actuation 2 puff inhalation Q6H PRN 07/04/22 10/31/22 Unknown Rx aerosol inhaler (Ventolin HFA) shortness of breath or wheezing #8.5 grams fluticasone fur. 100 mcg-umeclid 1 inh inhalation DAILY 30 days #60 08/02/22 10/31/22 Unknown Rx 62.5 mcg-vilant 25 mcg ea inhalat.powder (Trelegy Ellipta) prednisone 5 mg tablet 2.5 mg PO BID #60 tabs 09/02/22 10/31/22 Unknown Rx abiraterone 250 mg tablet (Zytiga) 250 mg PO DAILY #28 tabs 10/04/22 10/31/22 Unknown Rx enzalutamide 40 mg capsule 160 mg PO DAILY #120 caps 11/29/22 Unknown Rx Allergies Allergy/AdvReac Type Severity Reaction Status Date / Time No Known Allergies Allergy Verified 10/31/22 08:23 Current Medications Generic Name Dose Route Start Last Admin Trade Name Freq PRN Reason Stop Dose Admin Acetaminophen 1,000 mg 12/03/22 20:33 12/04/22 02:07 Acetaminophen 500 Mg Tablet PO Not Given Q6H CAEDNCE Hydromorphone HCl 0.2 mg 12/03/22 20:41 12/04/22 01:01 Hydromorphone 1 Mg/Ml Inj 1 Ml IVP 0.2 mg Q4H PRN Administration BREAKTHROUGH PAIN PFSH Anesthesia Medical History COPD (chronic obstructive pulmonary disease) Eczema Nicotine dependence, cigarettes, uncomplicated Prostate cancer Urethral stricture Surgical History H/O prostatectomy Family History Daughter Cancer Breast Brother Cancer Pancreatic Other CAD (coronary artery disease) Diabetes Suicide Denies family history of Clotting disorder Dementia Hyperlipidemia Psychiatric illness Chronic kidney disease (CKD) Anesthesia complication Bleeding disorder Lung disease Hypertension Stroke Social History Smoking and tobacco status: current every day smoker (1 ppd, smoked x 60 years) cigarettes Packs smoked per day: 1 Years cigarettes smoked: 61 [ Other cigarette details: started smoking at age 18years] Second hand smoke exposure: No Smoking risk assessment/counseling performed?: Yes Alcohol intake: never Counseling given: No Substance/Drug Use: never Counseling given: No Lives independently: Yes Household members: spouse Marital status: service: Yes Current occupational status: retired Do you think of yourself as: Straight/Heterosexual Current gender identity: Male Data Anesthesia 12/04/22 05:18 12/04/22 05:18 Short CBC 12/03/22 12/04/22 Range/Units 16:56 05:18 WBC 8.6 5.6 (4.0-10.0) 10^3/uL Hgb 14.9 13.7 (11.7-16.6) g/dL Hct 46.2 42.7 (42.0-52.0) % MCV 80.6 80.9 (80-94) fl Plt Count 198 181 (130-400) 10^3/cmm Neut % (Auto) 78.9 64.3 % Neut # (Auto) 6.76 3.63 (1.8-7.7) 10^3/uL BMP 12/03/22 12/04/22 16:56 05:18 Sodium 133 L 136 Potassium 4.4 4.4 Chloride 98 101 Carbon Dioxide 27 25 BUN 19 18 Creatinine 0.9 0.8 Glucose 95 99 Calcium 9.0 8.6 Liver Function 12/03/22 12/04/22 Range/Units 16:56 05:18 Total Bilirubin 0.3 (0.15-1.2) mg/dL AST 13 (0-40) U/L ALT 12 (0-41) U/L Alkaline Phosphatase 79 (40-130) U/L Albumin 4.0 3.3 L (3.5-5.2) g/dL Blood Bank 12/03/22 16:56 Blood Type A Negative Rho(D) Type Negative Antibody Screen Negative Coags 12/03/22 16:56 PT 12.90 INR 0.94 APTT 24.9 Cardiac Studies: No Data to Display
--- NOTE | 2022-12-04 10:46 | ANE.PACU2 ---
Inpatient post-anesthesia follow up: Vital signs: Temperature 97.2 F Pulse Rate 75 Respiratory Rate 18 Blood Pressure 127/67 Pulse Oximetry 96 Oxygen Delivery Me thod Oxymask Oxygen Flow Rate 6 Fraction of Inspir ed Oxygen Hydration adequate: Yes Nausea and vomiting: No Pain level: Other (0) Mental status: Baseline
--- NOTE | 2022-12-04 12:37 | PM.PN ---
Subjective Subjective: Postop day 0 right hip hemiarthroplasty will request PT Remove Madsen catheter few hours after surgery Resume diet and DVT prophylaxis Vitals/I&O/Wt Last Vital Signs Temp 97.2 F L 12/04/22 10:37 Pulse 75 12/04/22 10:37 Resp 18 12/04/22 10:37 BP 127/67 12/04/22 10:37 Pulse Ox 96 12/04/22 10:37 O2 Del Method Oxymask 12/04/22 10:26 O2 Flow Rate 6 12/04/22 10:26 12/03/22 12/04/22 12/04/22 22:59 06:59 14:59 Intake Total 1150 / 1150 Output Total 600 / 600 350 / 350 Balance -600 / -600 800 / 800 Weight last 48 hrs Weight 103.419 kg Physical Exam Narrative: Awake and alert GCS 15 Abdomen soft S1, S2 Requiring oxygen after this procedure No new focal deficit Urinary Catheter Management: Madsen: Cath Placed During This Visit: yes Reason for Continuing Indwelling Catheter: Acute Urinary Retention or Obstruction Urinary Catheter Date of Insertion: 12/04/22 Urinary Catheter Time of Insertion: 00:13 Data 12/04/22 05:18 12/04/22 05:18 A&P Assessment and plan (1) Femoral neck fracture: (2) Malignant neoplasm of prostate: (3) Nicotine addiction: (4) Hypersomnia: (5) COPD (chronic obstructive pulmonary disease): Plan Postop day 0 Right hip hemiarthroplasty PT evaluation Start DVT prophylaxis Start diet COPD exacerbation postoperatively Patient uses trilogy at home May resume trilogy versus BiPAP for current visit Prostate cancer: Currently on medication therapy Full code Attestations Medical Necessity Statement*: Discharge depending on PT evaluation Diagnoses Femoral neck fracture S72.009A Malignant neoplasm of prostate C61 Nicotine addiction F17.200 Hypersomnia G47.10 COPD (chronic obstructive pulmonary disease) J44.9
[2022-12-04] MEDS: oxyCODONE 5 mg IR Tab/Cap PO (15:07)
[2022-12-04] MEDS: lactated ringers 1,000 ML 100 ML IV (16:10)
[2022-12-04] MEDS: sennosides-docusate Tablet 2 TAB PO (17:18)
[2022-12-04] MEDS: calcium carb-vit d 600mg/400unit 1 Tablet 1 EACH PO (17:18)
[2022-12-04] MEDS: predniSONE 5 mg Tablet 2.5 MG PO (17:18)
[2022-12-04] MEDS: mupirocin oint 22 gm 1 APPLIC NASAL (17:19)
[2022-12-04] MEDS: iron polysaccharide complex 150 mg Capsule PO (17:19)
[2022-12-04] MEDS: chlorhexidine gluconate 0.12% UDC 15 mL 30 ML MUCOUS MEM ×2 (17:19→20:13)
[2022-12-05] VITALS (10 sets, daily range): BP systolic 115–157; BP diastolic 64–79; PULSE 74–89; RESP 16–18; TEMP 36.6–37.3; O2SAT 91–96
[2022-12-05] MEDS: oxyCODONE 5 mg IR Tab/Cap PO ×4 (00:22→17:04)
[2022-12-05 04:07] LABS: Basophils % 0.3 %; Eosinophils # 0.2 10^3/uL (0.0-0.8); Eosinophils % 2.5 %; Hemoglobin 12.1 g/dL (11.7-16.6); Lymphocytes # 1.2 10^3/uL (0.8-4.8); Lymphocytes % 15.4 %; Mean Corpuscular HGB Conc 31.8 g/dL (30.0-36.0); Mean Corpuscular Hemoglobin 25.8 pg (28.0-34.0); Mean Platelet Volume 10.2 fL (7.4-10.4); Monocytes # 0.9 10^3/uL (0.2-0.9); Monocytes % 11.6 %; Neutrophils # 5.23 10^3/uL (1.8-7.7); Neutrophils % 69.9 %; Nucleated Red Blood Cells % 0 %; Platelet Count 151 10^3/cmm (130-400); Red Blood Count 4.69 10^6/uL (4.1-5.3); Red Cell Distribution Width 13.8 % (12.1-15.1); White Blood Count 7.5 10^3/uL (4.0-10.0)
[2022-12-05 04:38] LABS: Anion Gap 10.5 (5-19); Blood Urea Nitrogen 21 mg/dL (8-23); Calcium 8.5 mg/dL (8.5-10.5); Carbon Dioxide 26 mmol/L (22-29); Chloride 101 mmol/L (98-107); Glucose 107 mg/dL (65-115); Osmolality Calculated 279 mOsm/kg (285-295); Potassium 4.5 mmol/L (3.5-5.1); Sodium 133 mmol/L (136-145)
--- NOTE | 2022-12-05 07:14 | CT_ITS ---
WS: [id number] EXAMINATION: CT lumbar spine wo con* [id number] REASON FOR EXAM: low back pain s/p fall COMPARISON: None available. CTDL: 34.8 Total DLP 1084.[address] scans at [facility] use at least one of these dose optimization techniques: automated e xposure control; mA and/or kV adjustment per patient size (includes targeted exams where dose is matc hed to clinical indication); or iterative reconstruction. FINDINGS: There is normal lumbar alignment. There are small Schmorl's node endplate changes at each disc level. There is normal disc space with except for moderate narrowing at L5-S1 with associated vacuum disc c hange at L4-5 and L5-S1 and mild annular disc bulging at L5-S1. Anterior marginal osteophytes are pre sent throughout the lumbar region with diffuse moderate facet degenerative changes are present at eac h level. No canal stenosis. Osteopenia. Prominent atherosclerotic calcified plaque throughout the aor ta is ectatic iliac arteries bilaterally. CT/CT lumbar spine wo con* [id number] IMPRESSION: Diffuse mild degenerative disc disease and osteopenia with central annular disc bulge at L5-S1 along with disc narrowing. No canal stenosis.
--- NOTE | 2022-12-05 07:15 | PM.PN ---
Subjective Subjective: Patient seen and examined this morning. He is recovering well patient is eating and sitting up. He is worked well with therapy. CT scan reviewed and no acute fractures. Vitals/I&O/Wt Last Vital Signs Temp 98 F 12/05/22 04:00 Pulse 76 12/05/22 04:00 Resp 16 12/05/22 06:00 BP 115/64 12/05/22 04:00 Pulse Ox 91 12/05/22 04:00 O2 Del Method Room Air 12/05/22 04:00 O2 Flow Rate 2 12/04/22 20:30 12/04/22 12/05/22 12/05/22 22:59 06:59 14:59 Intake Total 640 / 1930 1150 / 3080 Output Total 400 / 750 300 / 1050 Balance 240 / 1180 850 / 2030 Weight last 48 hrs Weight 228 lb Physical Exam Narrative: Dressing to the right hip clean dry and intact normal postoperative swelling. Smooth hip range of motion with minimal pain or discomfort. Patient is able to wiggle toes plantarflex and dorsiflex ankle sensations intact light touch distally right lower extremity is warm well perfused Urinary Catheter Management: Madsen: Cath Placed During This Visit: yes, but has since been removed by the nurse Reason for Continuing Indwelling Catheter: Perioperative Use in Selected Surgeries Urinary Catheter Date of Insertion: 12/04/22 Urinary Catheter Time of Insertion: 00:13 Date Urinary Catheter Removed: 12/05/22 Time Urinary Catheter Discontinued: 04:30 Data 12/05/22 03:52 12/05/22 03:52 Xray Ortho: My impression: Postoperative x-rays reviewed and personally interpreted by myself demonstrating stable right hip hemiarthroplasty with stable prosthesis no periprosthetic fracture or dislocation appropriate cement mantle as well as implant positioning and appropriate leg lengths. A&P Assessment and plan (1) Femoral neck fracture: Plan Weight-bear as tolerated right lower extremity Posterior hip precautions PT/OT Pain control DVT prophylaxis Complete postoperative antibiotics Continue to monitor intraoperative femoral head pathology Internal medicine on board as primary appreciate their medical management Orthopedics will continue to follow Dressing changes as needed Attestations Medical Necessity Statement*: Postoperative care right femoral neck fracture Coding Level of Care Code Acute Code for [facility] Fwd Diagnoses Femoral neck fracture S72.009A Time Spent (min) 20
[2022-12-05] MEDS: acetaminophen 1,000 MG/100 ML PIGGYBACK 100 MG IV (07:50)
[2022-12-05] MEDS: iron polysaccharide complex 150 mg Capsule PO ×2 (08:00→17:03)
[2022-12-05] MEDS: enoxaparin 30 mg/0.3 mL Syringe SUBCUT (08:00)
[2022-12-05] MEDS: chlorhexidine gluconate 0.12% UDC 15 mL 30 ML MUCOUS MEM ×4 (08:01→19:47)
[2022-12-05] MEDS: multivitamin therapeutic Tablet 1 TAB PO (08:01)
[2022-12-05] MEDS: cetirizine 10 mg Tablet PO (08:01)
[2022-12-05] MEDS: mupirocin oint 22 gm 1 APPLIC NASAL (08:02)
[2022-12-05] MEDS: predniSONE 5 mg Tablet 2.5 MG PO ×2 (08:02→17:03)
[2022-12-05] MEDS: calcium carb-vit d 600mg/400unit 1 Tablet 1 EACH PO ×2 (08:02→17:03)
[2022-12-05] MEDS: sennosides-docusate Tablet 2 TAB PO ×2 (08:03→17:03)
[2022-12-05] MEDS: ceFAZolin 2,000 MG in sodium chloride 0.9% (plus) 50 ML 100 MG IV (10:04)
--- NOTE | 2022-12-05 11:03 | XR_ITS ---
WS: [id number] EXAMINATION: XR chest 1V portable [id number] REASON FOR EXAM: wheezing COMPARISON: 12/03/2022 ORDER DATE: 12/05/2022 11:03 AM TECHNIQUE: A single, portable frontal chest x-ray was obtained. X-RAY FINDINGS: The lungs are clear of infiltrate. Chronic interstitial scarring noted.. Pleural spaces are clear. No pleural effusions or pneumothorax. Cardiomediastinal silhouette is normal. No evidence for pulmonary edema. Soft tissue and osseous structures are unremarkable. No tubes or lines are present. XR/XR chest 1V portable [id number] IMPRESSION: Chronic lung disease with no acute pulmonary change.
--- NOTE | 2022-12-05 11:57 | PM.PN ---
Subjective Subjective: Patient this morning was able to work with PT using a walker He has not voided yet No BM yet Requiring 2 to 3 L of oxygen Does not use oxygen at home however does carry history of COPD I will give him budesonide for his wheezing Requested chest x-ray give him Lasix Worker to arrange home health Vitals/I&O/Wt Last Vital Signs Temp 97.9 F 12/05/22 11:23 Pulse 74 12/05/22 11:23 Resp 18 12/05/22 11:23 BP 121/67 12/05/22 11:23 Pulse Ox 95 12/05/22 11:23 O2 Del Method Nasal Cannula 12/05/22 10:36 O2 Flow Rate 3 12/05/22 10:36 12/04/22 12/05/22 12/05/22 22:59 06:59 14:59 Intake Total 640 / 1930 1150 / 3080 240 / 240 Output Total 400 / 750 300 / 1050 Balance 240 / 1180 850 / 2030 240 / 240 Weight last 48 hrs Weight 103.419 kg Physical Exam Narrative: Patient is laying supine Active wheezing Currently on 3 L No active shortness of breath or chest pain Abdomen soft bowel sound present Awake and alert GCS 15 at the bedside Urinary Catheter Management: Madsen: Cath Placed During This Visit: yes, but has since been removed by the nurse Reason for Continuing Indwelling Catheter: Perioperative Use in Selected Surgeries Urinary Catheter Date of Insertion: 12/04/22 Urinary Catheter Time of Insertion: 00:13 Date Urinary Catheter Removed: 12/05/22 Time Urinary Catheter Discontinued: 04:30 Data 12/05/22 03:52 12/05/22 03:52 A&P Assessment and plan (1) COPD exacerbation: (2) Femoral neck fracture: (3) Malignant neoplasm of prostate: (4) COPD (chronic obstructive pulmonary disease): Plan Acute COPD exacerbation With active wheezing We will give him Lasix Start budesonide and DuoNeb Patient does not use oxygen at home currently requiring 3 L Request x-ray chest 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
[2022-12-05] MEDS: FUROsemide 10 mg/mL SDV 2mL 20 MG IVP (12:23)
[2022-12-06] VITALS (7 sets, daily range): BP systolic 107–148; BP diastolic 53–69; PULSE 71–93; RESP 17–22; TEMP 36.4–36.8; O2SAT 92–94
[2022-12-06 06:12] LABS: Basophils % 0.3 %; Eosinophils # 0.1 10^3/uL (0.0-0.8); Hematocrit 38.4 % (42.0-52.0); Hemoglobin 12.4 g/dL (11.7-16.6); Lymphocytes % 13.8 %; Mean Corpuscular HGB Conc 32.3 g/dL (30.0-36.0); Mean Corpuscular Hemoglobin 26.2 pg (28.0-34.0); Mean Corpuscular Volume 81.2 fl (80-94); Mean Platelet Volume 10.8 fL (7.4-10.4); Monocytes # 0.9 10^3/uL (0.2-0.9); Monocytes % 12.5 %; Neutrophils # 4.87 10^3/uL (1.8-7.7); Neutrophils % 71.1 %; Nucleated Red Blood Cells % 0 %; Platelet Count 143 10^3/cmm (130-400); Red Blood Count 4.73 10^6/uL (4.1-5.3); Red Cell Distribution Width 13.8 % (12.1-15.1); White Blood Count 6.9 10^3/uL (4.0-10.0)
[2022-12-06 06:19] LABS: Anion Gap 13.4 (5-19); Blood Urea Nitrogen 21 mg/dL (8-23); Calcium 8.6 mg/dL (8.5-10.5); Carbon Dioxide 27 mmol/L (22-29); Chloride 102 mmol/L (98-107); Glucose 103 mg/dL (65-115); Osmolality Calculated 289 mOsm/kg (285-295); Potassium 4.4 mmol/L (3.5-5.1); Sodium 138 mmol/L (136-145)
[2022-12-06] MEDS: chlorhexidine gluconate 0.12% UDC 15 mL 30 ML MUCOUS MEM ×4 (08:34→20:35)
[2022-12-06] MEDS: enoxaparin 30 mg/0.3 mL Syringe SUBCUT (08:34)
[2022-12-06] MEDS: cetirizine 10 mg Tablet PO (08:35)
[2022-12-06] MEDS: calcium carb-vit d 600mg/400unit 1 Tablet 1 EACH PO ×2 (08:35→17:49)
[2022-12-06] MEDS: sennosides-docusate Tablet 2 TAB PO ×2 (08:35→17:48)
[2022-12-06] MEDS: iron polysaccharide complex 150 mg Capsule PO ×2 (08:35→17:49)
[2022-12-06] MEDS: multivitamin therapeutic Tablet 1 TAB PO (08:35)
[2022-12-06] MEDS: predniSONE 5 mg Tablet 2.5 MG PO (08:35)
[2022-12-06] MEDS: TRAMadol 50 mg Tablet PO ×2 (08:37→19:12)
[2022-12-06] MEDS: albuterol 2.5 mg/3 mL Neb INHALATION (08:52)
--- NOTE | 2022-12-06 13:01 | P.PN_ITS ---
Subjective Subjective: Patient was working with PT when I entered the room Audible wheezing Started p.o.'s prednisone Currently on 2 L of oxygen which is a new requirement I will request D-dimer Started inhaler trilogy Vitals/I&O/Wt Last Vital Signs Temp 97.7 F 12/06/22 12:00 Pulse 88 12/06/22 12:00 Resp 17 12/06/22 12:00 BP 107/53 12/06/22 12:00 Pulse Ox 93 12/06/22 12:00 O2 Del Method Nasal Cannula 12/06/22 12:00 O2 Flow Rate 2 12/06/22 08:00 12/05/22 12/06/22 12/06/22 22:59 06:59 14:59 Intake Total 960 / 960 Output Total 1650 / 1650 150 / 1800 300 / 300 Balance -1650 / -1020 -150 / -1170 660 / 660 Physical Exam Narrative: Patient is working with PT Euvolemic Currently on 2 L Active wheezing No crackles or rhonchi Abdomen soft Extremity no edema S1, S2 GCS 15 Nonfocal neuro exam Urinary Catheter Management: Madsen: Cath Placed During This Visit: yes, but has since been removed by the nurse Reason for Continuing Indwelling Catheter: Perioperative Use in Selected Surgeries Urinary Catheter Date of Insertion: 12/04/22 Urinary Catheter Time of Insertion: 00:13 Date Urinary Catheter Removed: 12/05/22 Time Urinary Catheter Discontinued: 04:30 Data 12/06/22 05:42 12/06/22 05:42 A&P Assessment and plan (1) COPD exacerbation: (2) Femoral neck fracture: (3) Malignant neoplasm of prostate: (4) Nicotine addiction: (5) COPD (chronic obstructive pulmonary disease): (6) Hypoxia: Plan Acute COPD exacerbation Start prednisone Continue budesonide and Trelegy inhaler No signs of pneumonia or venous congestion Adequate urine output clinically does not look fluid overloaded Wean oxygen to room air Acute hypoxia related to COPD exacerbation He most likely will need oxygen at the time of discharge will need home O2 eval Check D-dimer Femoral neck fracture status post intervention Patient able to work with PT Awaiting skilled nursing placement Patient will need SNF/rehab Full code Daily PT Regular diet DVT prophylaxis on board No bowel movement yet Voiding without any trouble Self interpretation of x-rays no signs of pneumonia or venous congestion Attestations Medical Necessity Statement*: Awaiting placement Diagnoses COPD exacerbation J44.1 Femoral neck fracture S72.009A Malignant neoplasm of prostate C61 Nicotine addiction F17.200 COPD (chronic obstructive pulmonary disease) J44.9 Hypoxia R09.02
--- NOTE | 2022-12-06 13:05 | PC.SOCIAL ---
Pg 2 IMM Explained to pt Pg 2 IMM. No questions voiced. Provided pt a copy. Initialed, dated, & timed a copy & placed in chart.
[2022-12-06] MEDS: predniSONE 20 mg Tablet 40 MG PO (13:52)
[2022-12-06 14:00] LABS: D Dimer 1.78 ug/mIFEU (0-0.59)
--- NOTE | 2022-12-06 17:02 | P.PN_ITS ---
Subjective Subjective: Patient seen evaluated this evening is recovering well. Pain controlled. Progressing well with therapy. No issues overnight. Vitals/I&O/Wt Last Vital Signs Temp 97.8 F 12/06/22 16:00 Pulse 78 12/06/22 16:00 Resp 19 H 12/06/22 16:00 BP 132/67 12/06/22 16:00 Pulse Ox 92 12/06/22 16:00 O2 Del Method Nasal Cannula 12/06/22 16:00 O2 Flow Rate 2 12/06/22 08:00 12/06/22 12/06/22 12/06/22 06:59 14:59 22:59 Intake Total 960 / 960 Output Total 150 / 1800 300 / 300 Balance -150 / -1170 660 / 660 Physical Exam Narrative: Dressing to the right hip clean dry and intact normal postoperative swelling. Smooth hip range of motion with minimal pain or discomfort. Patient is able to wiggle toes plantarflex and dorsiflex ankle sensations intact light touch distally right lower extremity is warm well perfused Urinary Catheter Management: Madsen: Cath Placed During This Visit: yes, but has since been removed by the nurse Reason for Continuing Indwelling Catheter: Perioperative Use in Selected Surgeries Urinary Catheter Date of Insertion: 12/04/22 Urinary Catheter Time of Insertion: 00:13 Date Urinary Catheter Removed: 12/05/22 Time Urinary Catheter Discontinued: 04:30 Data 12/07/22 04:05 12/07/22 04:05 Other Labs: A.m. labs 12/06/2022 hemoglobin 12.4 A&P Assessment and plan (1) Femoral neck fracture: Plan Weight-bear as tolerated right lower extremity Posterior hip precautions PT/OT Pain control DVT prophylaxis Continue to monitor intraoperative femoral head pathology Internal medicine on board as primary appreciate their medical management Dressing changes as needed Patient stable for orthopedic standpoint for discharge. Patient understands posterior hip precautions. He is worked well with therapy. At this point in time no further intervention from an orthopedic standpoint required at this time orthopedic surgery team will sign off patient follow peripherally. If there is any questions pertaining patient's care feel free to myself. Patient to follow- up in the orthopedic office in 2 weeks. We will continue to follow along patient's intraoperative femoral head pathology to rule out any pathologic lesion. Patient will have appropriate discharge instructions as well as pain medication DVT prophylaxis postoperatively. Attestations Medical Necessity Statement*: Postoperative care right femoral neck fracture Coding Level of Care Code Acute Code for [facility] Fwd Diagnoses Femoral neck fracture S72.009A Time Spent (min) 20
--- NOTE | 2022-12-06 18:36 | PC.NURSE ---
SHIFT SUMMARY PATIENT HAS BEEN UP IN THE CHAIR THE MAJORITY OF THE DAY. WORKED WITH PHYSICAL THERAPY TWICE. PATIENT TOOK HOME TRELEGY THIS MORNING, WHEEZING IN LUNGS HAS IMPROVED. GOOD INTAKE AND OUTPUT. MINIMAL PAIN. SURGICAL DRESSING INTACT. CURRENTLY RESTING IN BED.
[2022-12-07] VITALS (9 sets, daily range): BP systolic 118–144; BP diastolic 54–74; PULSE 69–86; RESP 16–22; TEMP 36.3–36.9; O2SAT 88–97
[2022-12-07 04:44] LABS: Basophils % 0.3 %; Eosinophils # 0.1 10^3/uL (0.0-0.8); Eosinophils % 0.7 %; Hematocrit 36.6 % (42.0-52.0); Hemoglobin 11.7 g/dL (11.7-16.6); Lymphocytes # 0.9 10^3/uL (0.8-4.8); Lymphocytes % 12.9 %; Mean Corpuscular Volume 81.3 fl (80-94); Mean Platelet Volume 11.2 fL (7.4-10.4); Monocytes # 0.8 10^3/uL (0.2-0.9); Neutrophils # 5.01 10^3/uL (1.8-7.7); Neutrophils % 73.7 %; Nucleated Red Blood Cells % 0 %; Platelet Count 153 10^3/cmm (130-400); Red Cell Distribution Width 13.6 % (12.1-15.1); White Blood Count 6.8 10^3/uL (4.0-10.0)
[2022-12-07 05:03] LABS: Anion Gap 10.7 (5-19); Blood Urea Nitrogen 22 mg/dL (8-23); Calcium 8.4 mg/dL (8.5-10.5); Carbon Dioxide 30 mmol/L (22-29); Chloride 100 mmol/L (98-107); Glucose 115 mg/dL (65-115); Osmolality Calculated 286 mOsm/kg (285-295); Potassium 4.7 mmol/L (3.5-5.1); Sodium 136 mmol/L (136-145)
[2022-12-07] MEDS: chlorhexidine gluconate 0.12% UDC 15 mL 30 ML MUCOUS MEM ×4 (07:45→20:31)
[2022-12-07] MEDS: sennosides-docusate Tablet 2 TAB PO ×2 (07:45→17:00)
[2022-12-07] MEDS: multivitamin therapeutic Tablet 1 TAB PO (07:45)
[2022-12-07] MEDS: iron polysaccharide complex 150 mg Capsule PO ×2 (07:45→17:00)
[2022-12-07] MEDS: cetirizine 10 mg Tablet PO (07:45)
[2022-12-07] MEDS: calcium carb-vit d 600mg/400unit 1 Tablet 1 EACH PO ×2 (07:45→17:00)
[2022-12-07] MEDS: enoxaparin 30 mg/0.3 mL Syringe SUBCUT (07:46)
[2022-12-07] MEDS: predniSONE 20 mg Tablet 40 MG PO (07:46)
--- NOTE | 2022-12-07 08:42 | CT_ITS ---
WS: [id number] CTA OF THE CHEST WITH PULMONARY EMBOLISM PROTOCOL TECHNIQUE: High-resolution contrast enhanced CTA of the chest with coronal and sagittal reformatted i mages with pulmonary embolism protocol. MIP images are also reviewed. CLINICAL INFORMATION: hypoxia COMPARISON: None. DLP: 512.[address] scans at [facility] use at least one of these dose optimization techniques: automated e xposure control; mA and/or kV adjustment per patient size (includes targeted exams where dose is matc hed to clinical indication); or iterative reconstruction. FINDINGS: Proximal main pulmonary arteries are normal. Filling defects compatible with acute pulmonary embolus in the segmental and subsegmental pulmonary arteries bilaterally. No evidence of RIGHT heart strain. Normal caliber thoracic aorta. Aortic calcification. No mediastinal or hilar lymphadenopathy. No axil yanet lymphadenopathy. Adrenal glands are normal. Normal caliber upper abdominal aorta. Small esophageal hiatal hernia. Mild thoracic curve. Trace RIGHT pleural fluid. Moderate chronic emphysematous changes. Slight hazy opaci ties with subsegmental atelectasis RIGHT lower lobe. CT/CT angio chest PE protcl [id number] IMPRESSION: 1. Proximal main pulmonary arteries are normal. Filling defects within segment al and subsegmental pulmonary arteries bilaterally compatible with pulmonary em bolus. 2. No evidence of RIGHT heart strain. 3. Tiny RIGHT pleural effusion with slight hazy infiltrates or atelectasis RIG HT lower lobe. 4. Chronic emphysematous changes. 5. Small esophageal hiatal hernia. Notified Yenni Bell MD at 12/07/2022 10:35 AM.
--- NOTE | 2022-12-07 08:42 | USCV_ITS ---
Lorenzo Desouza Age: 82 Gender: M : 1940 Exam Date: 12/07/2022 10:28 Ordering Phys: Yenni Bell MD Technologist: CT Exam [place] [facility] [place]: swelling PROCEDURES: Venous duplex imaging was performed in bilateral lower extremities. In addition, the posterior tibial and peroneal trunk were evaluated. FINDINGS: no dvt, minor reflux noted on rt CONCLUSIONS No evidence of right lower extremity DVT. No evidence of left lower extremity DVT. Ismael Colmenares MD (Electronically Signed) Final Date: 07 December 2022 12:12 S
[2022-12-07] MEDS: iohexol 350 mg/mL 500 mL Btl (per mL) IV (10:12)
--- NOTE | 2022-12-07 10:37 | P.PN_ITS ---
Subjective Subjective: Patient has a bilateral PE segmental subsegmental without right heart strain Requested venous Doppler Start therapeutic Lovenox Wheezing has improved Currently on 2 L Vitals/I&O/Wt Last Vital Signs Temp 97.3 F L 12/07/22 08:00 Pulse 86 12/07/22 08:01 Resp 18 12/07/22 08:01 BP 118/54 12/07/22 08:00 Pulse Ox 88 L 12/07/22 08:01 O2 Del Method Nasal Cannula 12/07/22 08:01 O2 Flow Rate 1 12/07/22 08:01 12/06/22 12/07/22 12/07/22 22:59 06:59 14:59 Intake Total 480 / 1440 480 / 480 Output Total 250 / 550 100 / 650 Balance 230 / 890 -100 / 790 480 / 480 Physical Exam Narrative: Awake and alert Wheezing improved Currently on 2 L GCS 15 Nonfocal neuro exam is at the bedside Abdomen soft Pleasant and cooperative Urinary Catheter Management: Madsen: Cath Placed During This Visit: yes, but has since been removed by the nurse Reason for Continuing Indwelling Catheter: Perioperative Use in Selected Surgeries Urinary Catheter Date of Insertion: 12/04/22 Urinary Catheter Time of Insertion: 00:13 Date Urinary Catheter Removed: 12/05/22 Time Urinary Catheter Discontinued: 04:30 Data 12/07/22 04:05 12/07/22 04:05 A&P Assessment and plan (1) Hypoxia: (2) COPD exacerbation: (3) Femoral neck fracture: (4) Malignant neoplasm of prostate: (5) Nicotine addiction: (6) Pulmonary embolism: Plan Acute PE Patient has history of cancer Eliquis is safe to be using cancer I will put patient on therapeutic Lovenox for now and put him on loading dose of Eliquis at the time of discharge [facility] placement Postoperative complication with PE With underlying cancer Will request venous Doppler CTA showed PE today No right heart strain No active chest pain COPD exacerbation due to PE Wheezing improved but still present Continue steroids Acute hypoxia due to above-mentioned reasons: Currently on 2 L We will need home O2 eval before he is gone to the senior care Full code Status post intervention for hip Awaiting placement Regular diet Continue PT on daily basis Attestations Medical Necessity Statement*: Awaiting placement Diagnoses Hypoxia R09.02 COPD exacerbation J44.1 Femoral neck fracture S72.009A Malignant neoplasm of prostate C61 Nicotine addiction F17.200 Pulmonary embolism I26.99
[2022-12-07] MEDS: enoxaparin 80 mg/0.8 mL Syringe 70 MG SUBCUT (10:59)
[2022-12-07] MEDS: enoxaparin 100 mg/mL Syringe SUBCUT (20:31)
[2022-12-07] MEDS: budesonide 0.5 mg/2 mL Neb INHALATION (20:59)
[2022-12-08 04:00] VITALS: BP 146/76; PULSE 72; RESP 18; TEMP 36.7; O2SAT 96
[2022-12-08 08:00] VITALS: BP 156/64; PULSE 76; PULSE 81; RESP 16; RESP 17; TEMP 37; O2SAT 92; O2SAT 94
[2022-12-08] MEDS: calcium carb-vit d 600mg/400unit 1 Tablet 1 EACH PO (08:31)
[2022-12-08] MEDS: mupirocin oint 22 gm 1 APPLIC NASAL (08:32)
[2022-12-08] MEDS: cetirizine 10 mg Tablet PO (08:32)
[2022-12-08] MEDS: sennosides-docusate Tablet 2 TAB PO (08:32)
[2022-12-08] MEDS: multivitamin therapeutic Tablet 1 TAB PO (08:32)
[2022-12-08] MEDS: predniSONE 20 mg Tablet 40 MG PO (08:32)
[2022-12-08] MEDS: chlorhexidine gluconate 0.12% UDC 15 mL 30 ML MUCOUS MEM (08:33)
[2022-12-08] MEDS: iron polysaccharide complex 150 mg Capsule PO (08:33)
[2022-12-08] MEDS: enoxaparin 100 mg/mL Syringe SUBCUT (08:33)
[2022-12-08] MEDS: budesonide 0.5 mg/2 mL Neb INHALATION (09:22)
[2022-12-08 09:25] LABS: SARS Covid-2 Antigen negative (Negative)
[2022-12-08] MEDS: albuterol 2.5 mg/3 mL Neb INHALATION (09:25)
--- NOTE | 2022-12-08 10:11 | P.DS_ITS ---
Discharge Providers Date of Admission: 12/03/22 19:30 Date of Discharge: December 08, 2022 Attending Provider at Admission: Jl Villalba MD Attending Provider at Discharge: Yenni Bell MD Primary Care Provider: Loyd Goel MD Diagnoses at Discharge Discharge Diagnosis (1) Hypoxia: Status: Acute (2) COPD exacerbation: Status: Acute (3) Femoral neck fracture: Status: Acute (4) Malignant neoplasm of prostate: Status: Acute (5) Nicotine addiction: Status: Acute (6) Pulmonary embolism: Status: Acute Reason for Visit Reason for Visit: RIGHT HIP PAIN S/P FALL Hospital Course Hospital Course 82-year-old male who fell from his lower and suffered a right femoral neck fracture, Dr. Galvin was consulted who did right hip hemiarthroplasty, postoperatively patient was experiencing wheezing, was requiring 2 L of oxygen, D-dimer was requested which came back high, CTA chest showed bilateral PE without right heart strain, wheezing improved with use of steroids, he was given therapeutic Lovenox during hospitalization and at the time of discharge he will receive loading dose of Eliquis and then 5 mg twice daily I have asked him to take anticoagulating agent for at least 6 to 9 months and then follow-up with PCP if he wants to resume it or not I will give him oxycodone and senna S at the time of discharge as well He is full code He has been discharged with stable hemodynamics He may hold his prostate cancer medications during the time of rehab Physical Exam Narrative: Awake and alert Currently on 2 L Wheezing improved Abdomen soft Able to work with PT Euvolemic GCS 15 Nonfocal neuro exam Urinary Catheter Management: Madsen: Cath Placed During This Visit: yes, but has since been removed by the nurse Reason for Continuing Indwelling Catheter: Perioperative Use in Selected Surgeries Urinary Catheter Date of Insertion: 12/04/22 Urinary Catheter Time of Insertion: 00:13 Date Urinary Catheter Removed: 12/05/22 Time Urinary Catheter Discontinued: 04:30 Discharge Data Studies Completed and Pending Completed Studies During Hospitalization Category Date Time Status CT hip RT wo con* [id number] Stat Cat Scan 12/03/22 17:[address] lumbar spine wo con* [id number] Routine Cat Scan 12/05/22 07:14 Completed CTA PE [CT angio chest PE protcl [id number]] Routine Cat Scan 12/07/22 08:42 Completed XR chest 1V portable [id number] Routine Exams 12/05/22 11:03 Completed XR chest 1V portable [id number] Stat Exams 12/03/22 16:02 Completed XR femur RT min 2V* [id number] Stat Exams 12/03/22 17:28 Completed XR hip RT 2-3V wo/w pel* [id number] Routine Exams 12/04/22 10:19 Completed XR hip RT 2-3V wo/w pel* [id number] Stat Exams 12/03/22 15:37 Completed XR knee RT 3V* [id number] Stat Exams 12/03/22 17:28 Completed XR pelvis min 3V [id number] Stat Exams 12/03/22 17:28 Completed Pathology: Surgical [PTH] Routine Pth 12/04/22 10:02 [place] [id number] Routine Ultrasound 12/07/22 08:42 Completed Radiology Impressions Femur X-Ray 12/03/22 17:28 IMPRESSION: Right femoral neck fracture. Hip CT 12/03/22 17:28 IMPRESSION: 1. Comminuted impacted right femoral neck fracture. Knee X-Ray 12/03/22 17:28 IMPRESSION: No acute findings. Pelvis X-Ray 12/03/22 17:28 IMPRESSION: Right femoral neck fracture. Hip/Pelvis X-Ray 12/04/22 10:19 IMPRESSION: Recent right hip replacement in satisfactory position. Lumbar Spine CT 12/05/22 07:14 IMPRESSION: Diffuse mild degenerative disc disease and osteopenia with central annular disc bulge at L5-S1 along with disc narrowing. No canal stenosis. Chest X-Ray 12/05/22 11:03 IMPRESSION: Chronic lung disease with no acute pulmonary change. Chest CTA 12/07/22 08:42 IMPRESSION: 1. Proximal main pulmonary arteries are normal. Filling defects within segmental and subsegmental pulmonary arteries bilaterally compatible with pulmonary embolus. 2. No evidence of RIGHT heart strain. 3. Tiny RIGHT pleural effusion with slight hazy infiltrates or atelectasis RIGHT lower lobe. 4. Chronic emphysematous changes. 5. Small esophageal hiatal hernia. Notified Yenni Bell MD at 12/07/2022 10:35 AM. Laboratory Results WBC 6.8 10^3/uL (4.0-10.0) 12/07/22 04:05 RBC 4.50 10^6/uL (4.1-5.3) 12/07/22 04:05 Hgb 11.7 g/dL (11.7-16.6) 12/07/22 04:05 Hct 36.6 % (42.0-52.0) L 12/07/22 04:05 MCV 81.3 fl (80-94) 12/07/22 04:05 MCH 26.0 pg (28.0-34.0) L 12/07/22 04:05 MCHC 32.0 g/dL (30.0-36.0) 12/07/22 04:05 RDW 13.6 % (12.1-15.1) 12/07/22 04:05 Plt Count 153 10^3/cmm (130-400) 12/07/22 04:05 MPV 11.2 fL (7.4-10.4) H 12/07/22 04:05 Neut % (Auto) 73.7 % 12/07/22 04:05 Lymph % (Auto) 12.9 % 12/07/22 04:05 [place] % (Auto) 12.0 % 12/07/22 04:05 Eos % (Auto) 0.7 % 12/07/22 04:05 Baso % (Auto) 0.3 % 12/07/22 04:05 Neut # (Auto) 5.01 10^3/uL (1.8-7.7) 12/07/22 04:05 Lymph # (Auto) 0.9 10^3/uL (0.8-4.8) 12/07/22 04:05 [place] # (Auto) 0.8 10^3/uL (0.2-0.9) 12/07/22 04:05 Eos # (Auto) 0.1 10^3/uL (0.0-0.8) 12/07/22 04:05 Baso # (Auto) 0.0 10^3/uL (0.0-0.1) 12/07/22 04:05 Nucleated RBC % (auto) 0 % 12/07/22 04:05 Nucleated RBCs # 0.0 /100WBC 12/07/22 04:05 PT 12.90 SECONDS (12.1-14.9) 12/03/22 16:56 INR 0.94 (0.8-1.2) 12/03/22 16:56 APTT 24.9 SECONDS (23.9-36.7) 12/03/22 16:56 D-Dimer 1.78 ug/mIFEU (0-0.59) H 12/06/22 13:39 Sodium 136 mmol/L (136-145) 12/07/22 04:05 Potassium 4.7 mmol/L (3.5-5.1) 12/07/22 04:05 Chloride 100 mmol/L (98-107) 12/07/22 04:05 Carbon Dioxide 30 mmol/L (22-29) H 12/07/22 04:05 Anion Gap 10.7 (5-19) 12/07/22 04:05 BUN 22 mg/dL (8-23) 12/07/22 04:05 Creatinine 0.8 mg/dL (0.7-1.2) 12/07/22 04:05 GFR Calculation Not Reportable 12/07/22 04:05 Glucose 115 mg/dL (65-115) 12/07/22 04:05 POC Glucose 103 mg/dL (70-110) 12/04/22 08:00 Calculated Osmolality 286 mOsm/kg (285-295) 12/07/22 04:05 Calcium 8.4 mg/dL (8.5-10.5) L 12/07/22 04:05 Phosphorus 3.6 mg/dL (2.5-4.5) 12/04/22 05:18 Magnesium 2.2 mg/dL (1.7-2.3) 12/04/22 05:18 Total Bilirubin 0.3 mg/dL (0.15-1.2) 12/03/22 16:56 AST 13 U/L (0-40) 12/03/22 16:56 ALT 12 U/L (0-41) 12/03/22 16:56 Alkaline Phosphatase 79 U/L (40-130) 12/03/22 16:56 Total Protein 6.6 g/dL (6.6-8.7) 12/03/22 16:56 Albumin 3.3 g/dL (3.5-5.2) L 12/04/22 05:18 Globulin 2.6 g/dL (1.3-4.6) 12/03/22 16:56 SARS-CoV-2 Ag (Rapid) negative (Negative) 12/08/22 08:47 Blood Type A Negative 12/03/22 16:56 Rho(D) Type Negative 12/03/22 16:56 Antibody Screen Negative 12/03/22 16:56 Vitals Last Vital Signs Temp 98.6 F 12/08/22 08:00 Pulse 76 12/08/22 08:00 Resp 16 12/08/22 08:00 BP 156/64 12/08/22 08:00 Pulse Ox 94 12/08/22 08:00 O2 Del Method Nasal Cannula 12/08/22 08:00 O2 Flow Rate 2 12/08/22 08:00 Discharge Plan Discharge Patient Disposition: Home Health Service Condition: Stable Prescriptions: New ondansetron 4 mg tablet,disintegrating 4 mg PO DAILY 5 Days Qty: 5 0RF oxycodone 5 mg tablet 5 mg PO Q6H PRN (Reason: pain) 7 Days Qty: 28 0RF calcium carbonate-vitamin D3 600 mg-10 mcg (400 unit) Tablet 1 ea PO BID 30 Days Qty: 60 0RF Stool Softener-Laxative 8.6-50 mg Tablet 2 tab PO BID Qty: 10 0RF oxycodone 5 mg Tablet 5 mg PO Q4H PRN (Reason: pain) Qty: 14 0RF calcium carbonate-vitamin D3 600 mg-10 mcg (400 unit) Tablet 1 ea PO BID Qty: 60 0RF Eliquis 5 mg tablet 5 mg PO BID Qty: 120 3RF Rx Instructions: 10 mg twice daily for 7 days then 5 mg twice daily methylprednisolone [Medrol (Rolando)] 4 mg tablets,dose pack See Rx Instructions .ROUTE .COMPLEX Qty: 21 0RF Rx Instructions: orally per package directions Continued acetaminophen [Tylenol] 325 mg tablet 325 mg PO DAILY PRN (Reason: Pain) Allergy Relief (cetirizine) 10 mg capsule 10 mg PO DAILY clotrimazole-betamethasone 1-0.05 % cream 1 applic topical BID PRN (Reason: Rash) albuterol sulfate [Ventolin HFA] 90 mcg/actuation HFA aerosol inhaler 2 puff inhalation Q6H PRN (Reason: shortness of breath or wheezing) Qty: 8.5 5RF Trelegy Ellipta 100-62.5-25 mcg blister with device 1 inh inhalation DAILY 30 Days Qty: 60 6RF Held enzalutamide 40 mg capsule 160 mg PO DAILY Qty: 120 2RF Hold Instructions: Resume on 12/29/22. Discontinued ibuprofen 200 mg tablet 200 mg PO Q6H PRN (Reason: Pain) Discharge Orders: Discharge Order (Routine); Ordered 12/08/22 Ordered By: Yenni Bell Other Ambulatory Orders: DME: Walker (Order) Location: None Selected Ordered By: Yenni Bell Referrals: [facility] [Outside] [facility] ([facility]) [Outside] Tod Baker DO [Physician] - 12/16/22 10:15 am () Loyd Goel MD [Primary Care Provider] - 12/16/22 1:45 pm (Appt will be with Dr. Smith due to Dr. Goel being out of office. ) Discharge Diet: Advance as tolerated Discharge Activity: Increase activity as tolerated, Use walker/crutches as instructed and As per PT/OT instructions Patient Instructions: Oxycodone/Acetaminophen (By mouth), Laxative, Stool Softeners (By mouth), Ondansetron (By mouth), Apixaban (By mouth), Opioid Safety Activity Restrictions/Additional Instructions: Orthopedic discharge instructions: Patient may weight-bear as tolerated right lower extremity Posterior hip precautions (avoid hip flexion greater than 90 degrees and inte rnal rotation as well as avoid crossing legs past midline) Utilize walker as needed for safety Keep incisions clean dry and intact May leave Silverlon bandage dressing on in place for 7 days postoperatively at that time may remove rinse incision with warm soapy water pat dry and redress with a new dry dressing. may change the Silverlon bandage sooner if more than 50% of bandage is saturated Ice as needed for pain and swelling Take pain medication as prescribed Take antinausea medication as needed Supplement with Citracal vitamin D for bone health and healing Take Lovenox (blood thinner) as prescribed for 35 days postoperatively to prevent blood clots Follow-up in the orthopedic office in 2 weeks Contact the office for any questions or concerns Discharge Attestations Time Spent in Discharge Care*: greater than 30 min Quality Metrics Clinical Quality Measures [ No reported AMI, CVA or VTE this stay] Coding Level of Care Code Acute Code for Chg Fwd Diagnoses Hypoxia R09.02 COPD exacerbation J44.1 Femoral neck fracture S72.009A Malignant neoplasm of prostate C61 Nicotine addiction F17.200 Pulmonary embolism I26.99
--- NOTE | 2022-12-08 10:28 | PC.SOCIAL ---
Imm update Imm updated with patient at bedside. Copy of page 2 provided. Patient verbalized understanding. Copy in chart initialed, dated and timed.
--- NOTE | 2022-12-08 10:48 | PC.NURSE ---
Report called to Katty hidalgo. Patient resting comfortably in chair with at bedside. Katty hidalgo to send transport.
[2022-12-08 11:33] VITALS: BP 128/63; PULSE 75; TEMP 36.9; O2SAT 93
--- NOTE | 2022-12-08 11:39 | PC.NURSE ---
Report given to SITA Kapoor.
[2022-12-08 12:47] VITALS: BP 128/63; PULSE 75; TEMP 36.9; O2SAT 93
== END 2022-12-08 12:48 | disposition skilled nursing facility (03) | DRG 522 ==
LOC: ER 18:05 → MEDSURG 19:31
PROVIDERS: Emergency Medicine; Student in an Organized Health Care Education/Training Program; Admitting Provider Internal Medicine; Emergency Provider Physician Assistant; PCP Family Medicine; Visit Provider Internal Medicine
PROC: 0SRR0J9 Replacement of Right Hip Joint, Femoral Surface with Synthetic Substitute, Cemented, Open Approach (ICD-10-PCS; CPT 27125; principal; 2022-12-04 08:00)
DX: S72.001A Fracture of unspecified part of neck of right femur, initial encounter for closed fracture (principal); I26.94 Multiple subsegmental thrombotic pulmonary emboli without acute cor pulmonale; J44.1 Chronic obstructive pulmonary disease with (acute) exacerbation; W01.0XXA Fall on same level from slipping, tripping and stumbling without subsequent striking against object, initial encounter; C61 Malignant neoplasm of prostate; Z79.51 Long term (current) use of inhaled steroids; Z79.899 Other long term (current) drug therapy; F17.210 Nicotine dependence, cigarettes, uncomplicated; Z90.79 Acquired absence of other genital organ(s); L30.9 Dermatitis, unspecified; G47.10 Hypersomnia, unspecified; M51.27 Other intervertebral disc displacement, lumbosacral region
CPT/HCPCS: 36415; 36416; 51702; 71045; 71275; 72131; 72190; 73502; 73552; 73562; 73700; 80048; 80053; 80069; 82962; 83735; 85025; 85378; 85610; 85730; 86850; 86900; 87426; 88305; 88311; 93005; 93970; 94640; 96365; 96367; 96372; 96375; 96376; 97110; 97116; 97161; 97165; 97530; 97535; 99285; C1713; C1776; J0131; J0690; J1100; J1170; J1650; J1885; J1940; J2270; J2405; J2704; J3010; J3370; J7120; J7512; J7613; J7626; Q9967

== ENCOUNTER → 2022-12-16 10:20 | Outpatient (BNVA) | payer MEDICARE, OTHER, SELFPAY | PROVIDERS: PCP Family Medicine; Visit Provider Student in an Organized Health Care Education/Training Program | DX: Z96.641 Presence of right artificial hip joint (principal) | CPT/HCPCS: 73502; 99024 ==

== ENCOUNTER 2023-02-01 10:43 | Oncology outpatient (recurring) (ONCR) | payer MEDICARE, OTHER, SELFPAY ==
[2023-02-01 10:57] VITALS: BP 136/73; PULSE 73; RESP 18; TEMP 36.1; O2SAT 95
[2023-02-01 11:13] LABS: Basophils % 0.7 %; Eosinophils # 0.3 10^3/uL (0.0-0.8); Eosinophils % 5.1 %; Hematocrit 43.2 % (42.0-52.0); Lymphocytes # 1.3 10^3/uL (0.8-4.8); Lymphocytes % 24.4 %; Mean Corpuscular HGB Conc 32.4 g/dL (30.0-36.0); Mean Corpuscular Hemoglobin 25.7 pg (28.0-34.0); Mean Corpuscular Volume 79.3 fl (80-94); Mean Platelet Volume 10.6 fL (7.4-10.4); Monocytes # 0.6 10^3/uL (0.2-0.9); Monocytes % 10.5 %; Neutrophils # 3.24 10^3/uL (1.8-7.7); Neutrophils % 58.9 %; Nucleated Red Blood Cells % 0 %; Platelet Count 225 10^3/cmm (130-400); Red Blood Count 5.45 10^6/uL (4.1-5.3); White Blood Count 5.5 10^3/uL (4.0-10.0)
[2023-02-01 11:49] LABS: Alanine Aminotransferase 7 U/L (0-41); Albumin Level 3.8 g/dL (3.5-5.2); Alkaline Phosphatase 78 U/L (40-130); Anion Gap 13.8 (5-19); Aspartate Amino Transferase 12 U/L (0-40); Blood Urea Nitrogen 20 mg/dL (8-23); Carbon Dioxide 27 mmol/L (22-29); Chloride 102 mmol/L (98-107); Creatinine Clr Calc Pharmacy 70.6843; Globulin 2.5 g/dL (1.3-4.6); Glucose 110 mg/dL (65-115); Osmolality Calculated 289 mOsm/kg (285-295); Potassium 4.8 mmol/L (3.5-5.1); Sodium 138 mmol/L (136-145); Testosterone Total 2.5 ng/dL (193-740); Total Bilirubin 0.4 mg/dL (0.15-1.2); Total Protein 6.3 g/dL (6.6-8.7)
[2023-02-01 11:53] LABS: Prostate Specific Antigen < 0.014 ng/mL (0-4)
[2023-02-01 13:30] VITALS: BP 125/63; PULSE 64; RESP 18; TEMP 36.6; O2SAT 94
[2023-02-01] MEDS: leuprolide 22.5 mg Kit IM (14:22)
== END 2023-02-16 23:59 | disposition home or self-care (01) ==
PROVIDERS: PCP Family Medicine; Visit Provider Internal Medicine Medical Oncology
DX: C61 Malignant neoplasm of prostate (principal); Z79.818 Long term (current) use of other agents affecting estrogen receptors and estrogen levels; F17.210 Nicotine dependence, cigarettes, uncomplicated; C77.8 Secondary and unspecified malignant neoplasm of lymph nodes of multiple regions; Z79.899 Other long term (current) drug therapy; Z79.52 Long term (current) use of systemic steroids; I26.99 Other pulmonary embolism without acute cor pulmonale; Z79.01 Long term (current) use of anticoagulants
CPT/HCPCS: 36415; 80053; 84153; 84403; 85025; 99214; J9217

== ENCOUNTER → 2023-02-02 14:47 | Outpatient (BNVA) | payer MEDICARE, OTHER, SELFPAY | PROVIDERS: PCP Family Medicine; Visit Provider Student in an Organized Health Care Education/Training Program | DX: Z96.641 Presence of right artificial hip joint | CPT/HCPCS: 73502; 99024 ==

== ENCOUNTER 2023-02-13 09:45 | Outpatient (RCR) | payer MEDICARE, OTHER, SELFPAY | END 2023-02-16 23:59 | disposition home or self-care (01) | LOC: SPT 09:45 | PROVIDERS: Visit Provider Student in an Organized Health Care Education/Training Program | DX: Z98.890 Other specified postprocedural states (principal) | CPT/HCPCS: 97110; 97161; 97530 ==

== ENCOUNTER → 2023-02-16 15:03 | Outpatient (BNVA) | payer MEDICARE, OTHER, SELFPAY | PROVIDERS: PCP Family Medicine; Visit Provider Internal Medicine Pulmonary Disease | DX: J44.9 Chronic obstructive pulmonary disease, unspecified (principal); G47.10 Hypersomnia, unspecified; I26.99 Other pulmonary embolism without acute cor pulmonale; Z87.891 Personal history of nicotine dependence; Z79.01 Long term (current) use of anticoagulants; Z99.89 Dependence on other enabling machines and devices | CPT/HCPCS: 99214 ==

== ENCOUNTER 2023-02-17 06:00 | Outpatient (RCR) | payer MEDICARE, OTHER, SELFPAY | END 2023-03-18 23:59 | disposition home or self-care (01) | LOC: SPT 06:00 | PROVIDERS: PCP Family Medicine; Visit Provider Student in an Organized Health Care Education/Training Program | DX: Z47.89 Encounter for other orthopedic aftercare (principal) | CPT/HCPCS: 97110; 97112; 97116; 97530 ==

== ENCOUNTER 2023-03-19 06:00 | Outpatient (RCR) | payer MEDICARE, OTHER, SELFPAY | END 2023-03-30 23:59 | disposition home or self-care (01) | LOC: SPT 06:00 | PROVIDERS: PCP Family Medicine; Visit Provider Student in an Organized Health Care Education/Training Program | DX: Z98.890 Other specified postprocedural states (principal) | CPT/HCPCS: 97110 ==

== ENCOUNTER → 2023-05-04 13:37 | Outpatient (BNVA) | payer MEDICARE, OTHER, SELFPAY | PROVIDERS: PCP Family Medicine; Visit Provider Physician Assistant | DX: Z96.649 Presence of unspecified artificial hip joint (principal); M70.61 Trochanteric bursitis, right hip | CPT/HCPCS: 73502; 99213 ==

== ENCOUNTER 2023-05-10 09:23 | Oncology outpatient (recurring) (ONCR) | payer MEDICARE, OTHER, SELFPAY ==
[2023-05-10 10:10] VITALS: BP 154/77; PULSE 69; RESP 17; TEMP 35.7; O2SAT 96
[2023-05-10 10:15] LABS: Basophils % 0.5 %; Eosinophils # 0.1 10^3/uL (0.0-0.8); Eosinophils % 1.3 %; Hematocrit 45.6 % (37-53); Lymphocytes # 0.8 10^3/uL (0.8-4.8); Lymphocytes % 13.2 %; Mean Corpuscular HGB Conc 31.8 g/dL (30-55); Mean Corpuscular Hemoglobin 26.7 pg (27-33); Mean Platelet Volume 10.4 fL (7.4-10.4); Monocytes # 0.4 10^3/uL (0.2-0.9); Monocytes % 6.1 %; Neutrophils # 4.66 10^3/uL (1.8-7.7); Neutrophils % 78.6 %; Nucleated Red Blood Cells % 0 %; Platelet Count 193 10^3/cmm (157-399); Red Blood Count 5.43 10^6/uL (3.85-5.65); Red Cell Distribution Width 14.6 % (12.1-15.1); White Blood Count 5.93 10^3/uL (3.29-11.43)
[2023-05-10 10:43] LABS: Alanine Aminotransferase 8 U/L (0-41); Albumin Level 3.9 g/dL (3.5-5.2); Alkaline Phosphatase 75 U/L (40-130); Anion Gap 14.5 (5-19); Aspartate Amino Transferase 9 U/L (0-40); Blood Urea Nitrogen 20 mg/dL (8-23); Carbon Dioxide 23 mmol/L (22-29); Chloride 103 mmol/L (98-107); Globulin 2.8 g/dL (1.3-4.6); Glucose 131 mg/dL (65-115); Osmolality Calculated 286 mOsm/kg (285-295); Potassium 4.5 mmol/L (3.5-5.1); Sodium 136 mmol/L (136-145); Total Bilirubin 0.6 mg/dL (0.15-1.2); Total Protein 6.7 g/dL (6.6-8.7)
[2023-05-10 10:44] LABS: Prostate Specific Antigen < 0.014 ng/mL (0-4)
[2023-05-10] MEDS: leuprolide 22.5 mg Kit IM (12:02)
== END 2023-05-18 23:59 | disposition home or self-care (01) ==
PROVIDERS: Visit Provider Internal Medicine Medical Oncology
DX: C61 Malignant neoplasm of prostate (principal); Z79.818 Long term (current) use of other agents affecting estrogen receptors and estrogen levels; F17.210 Nicotine dependence, cigarettes, uncomplicated; Z92.3 Personal history of irradiation; Z79.899 Other long term (current) drug therapy; Z79.52 Long term (current) use of systemic steroids; Z51.11 Encounter for antineoplastic chemotherapy
CPT/HCPCS: 36415; 80053; 84153; 85025; 96402; 99214; J9217

== ENCOUNTER 2023-05-25 14:04 | Outpatient (RCR) | payer MEDICARE, OTHER, SELFPAY | END 2023-06-18 23:59 | disposition home or self-care (01) | LOC: SPT 14:04 | PROVIDERS: PCP Family Medicine; Visit Provider Physician Assistant | DX: M70.61 Trochanteric bursitis, right hip (principal) | CPT/HCPCS: 97110; 97161 ==

== ENCOUNTER 2023-06-19 06:00 | Outpatient (RCR) | payer MEDICARE, OTHER, SELFPAY | END 2023-07-19 23:59 | disposition home or self-care (01) | LOC: SPT 06:00 | PROVIDERS: PCP Family Medicine; Visit Provider Physician Assistant | DX: M70.61 Trochanteric bursitis, right hip (principal) | CPT/HCPCS: 97110 ==

== ENCOUNTER → 2023-06-22 08:09 | Outpatient (BNVA) | payer MEDICARE, OTHER, SELFPAY | PROVIDERS: PCP Family Medicine; Visit Provider Internal Medicine Pulmonary Disease | DX: I26.94 Multiple subsegmental thrombotic pulmonary emboli without acute cor pulmonale (principal); J43.2 Centrilobular emphysema; G47.10 Hypersomnia, unspecified; Z87.891 Personal history of nicotine dependence | CPT/HCPCS: 99214 ==

== ENCOUNTER 2023-08-02 09:47 | Oncology outpatient (recurring) (ONCR) | payer MEDICARE, OTHER, SELFPAY ==
[2023-08-02 10:00] VITALS: BP 160/75; PULSE 97; RESP 20; TEMP 36.4; O2SAT 96
[2023-08-02 10:20] VITALS: BP 115/69; PULSE 91; RESP 16; TEMP 36.9; O2SAT 94
[2023-08-02 10:22] LABS: Basophils % 0.5 %; Eosinophils # 0.1 10^3/uL (0.0-0.8); Eosinophils % 2.3 %; Hematocrit 45.6 % (37-53); Lymphocytes # 0.9 10^3/uL (0.8-4.8); Mean Corpuscular HGB Conc 32.7 g/dL (30-55); Mean Corpuscular Hemoglobin 26.8 pg (27-33); Mean Corpuscular Volume 82.2 fl (82-101); Mean Platelet Volume 10.1 fL (7.4-10.4); Monocytes # 0.5 10^3/uL (0.2-0.9); Monocytes % 8.7 %; Neutrophils # 4.05 10^3/uL (1.8-7.7); Neutrophils % 71.8 %; Nucleated Red Blood Cells % 0 %; Platelet Count 225 10^3/cmm (157-399); Red Blood Count 5.55 10^6/uL (3.85-5.65); Red Cell Distribution Width 14.5 % (12.1-15.1); White Blood Count 5.64 10^3/uL (3.29-11.43)
[2023-08-02] MEDS: leuprolide 22.5 mg Kit IM (10:23)
[2023-08-02 10:54] LABS: Alanine Aminotransferase 8 U/L (0-41); Albumin Level 3.8 g/dL (3.5-5.2); Alkaline Phosphatase 117 U/L (40-130); Anion Gap 16.3 (5-19); Aspartate Amino Transferase 15 U/L (0-40); Blood Urea Nitrogen 21 mg/dL (8-23); Calcium 8.9 mg/dL (8.5-10.5); Carbon Dioxide 24 mmol/L (22-29); Chloride 101 mmol/L (98-107); Globulin 2.8 g/dL (1.3-4.6); Glucose 115 mg/dL (65-115); Osmolality Calculated 288 mOsm/kg (285-295); Potassium 4.3 mmol/L (3.5-5.1); Sodium 137 mmol/L (136-145); Testosterone Total 2.6 ng/dL (193-740); Total Bilirubin 0.5 mg/dL (0.15-1.2); Total Protein 6.6 g/dL (6.6-8.7)
[2023-08-02 10:57] LABS: Prostate Specific Antigen < 0.014 ng/mL (0-4)
== END 2023-08-17 23:59 | disposition home or self-care (01) ==
LOC: ONCMED 09:48
PROVIDERS: Nurse Practitioner Family; PCP Family Medicine; Visit Provider Internal Medicine Medical Oncology
DX: Z51.11 Encounter for antineoplastic chemotherapy (principal); C61 Malignant neoplasm of prostate
CPT/HCPCS: 80053; 84153; 84403; 85025; 96402; J9217

== ENCOUNTER → 2023-08-08 08:58 | Outpatient (BNVA) | payer MEDICARE, OTHER, SELFPAY | PROVIDERS: PCP Family Medicine; Visit Provider Student in an Organized Health Care Education/Training Program | DX: Z96.641 Presence of right artificial hip joint; M54.50 Low back pain, unspecified | CPT/HCPCS: 73502; 99213 ==

== ENCOUNTER → 2023-08-31 10:45 | Outpatient (BNVA) | payer MEDICARE, OTHER, SELFPAY | PROVIDERS: PCP Family Medicine; Visit Provider Orthopaedic Surgery | DX: M54.50 Low back pain, unspecified (principal); M48.062 Spinal stenosis, lumbar region with neurogenic claudication | CPT/HCPCS: 99204 ==

== ENCOUNTER 2023-10-02 08:35 | Outpatient (CLI) | payer MEDICARE, OTHER, SELFPAY ==
--- NOTE | 2023-10-02 08:45 | MR_ITS ---
WS: [id number] MRI LUMBAR SPINE NONCONTRAST HISTORY: Back Pain COMPARISON: Lumbar spine CT 12/05/2022 TECHNIQUE: Sagittal and axial multisequence imaging is submitted. Quality this examination is compromised by patient's limitations. Very slight retrolisthesis of L2. Marrow edema in the L1, L2 and L3 vertebral bodies from recent fractures. Biconcave appearance of the vertebral bodies with edema and large portions of the vertebral bodies. No edema extending into the posterior elements. The most significant fracture at L2 by approximately 50%. There is no retropulsio n. There is a small Schmorl's node inferior endplate of L4 with edema. There is also edema and increased T2 signal within the disc spaces of T12-L1, L1-2 and L2-3. Conus terminates normally at L1-2 disc level. L1-L2: Mild foraminal narrowing and facet arthritis. L2-L3: Annular disc bulging with moderate ligamentum flavum and facet arthritis. Encroachment upon th e subarticular recesses and the traversing L3 nerve roots. L3-L4: Mild annular disc bulging with ligamentum flavum and facet arthritis. Mild bilateral subarticu lar recess encroachment. There is encroachment upon the traversing L4 nerve roots, RIGHT greater than LEFT. No central stenosis. L4-L5: Mild annular disc bulging with osteophytic ridging. Ligamentum flavum and facet arthritis. Mil d central stenosis. Greater encroachment upon the subarticular recesses bilaterally with encroachment upon the traversing L5 nerve roots. Mild bilateral foraminal stenosis. L5-S1: Mild annular disc bulging with osteophytic ridging and facet arthritis. Mild bilateral foramin al narrowing due to osteophyte disease and disc disease. Atherosclerosis aorta. IMPRESSION: 1. Marrow edema with compression fractures in L1, L2 and L3. Acute to subacute fractures. Age-indete rminate fractures but not present on 12/05/2022. L2 fracture estimated at 50%. L2 fracture with the mo st significant loss of height. No retropulsion or involvement of the posterior elements. 2. L2-3: Mild disc and osteophyte encroachment upon the subarticular recesses and the traversing L3 nerve roots. 3. L3-4: Mild bilateral subarticular recess encroachment upon the traversing L4 nerve roots, RIGHT g reater than LEFT. No central stenosis. 4. L4-5: Mild central stenosis with bilateral subarticular recess and foraminal stenosis. Encroachme nt upon the traversing L5 nerve roots. 5. L5-S1: Mild bilateral foraminal stenosis due to disc and osteophyte disease.
== END 2023-10-02 08:36 | disposition home or self-care (01) ==
LOC: RAD 08:35
PROVIDERS: PCP Family Medicine; Visit Provider Orthopaedic Surgery
DX: M54.50 Low back pain, unspecified (principal); M48.56XA Collapsed vertebra, not elsewhere classified, lumbar region, initial encounter for fracture; M48.061 Spinal stenosis, lumbar region without neurogenic claudication; M48.07 Spinal stenosis, lumbosacral region; X58.XXXA Exposure to other specified factors, initial encounter
CPT/HCPCS: 72148

== ENCOUNTER → 2023-10-03 09:01 | Outpatient (BNVA) | payer MEDICARE, OTHER, SELFPAY | PROVIDERS: PCP Family Medicine; Visit Provider Anesthesiology Pain Medicine | DX: M48.062 Spinal stenosis, lumbar region with neurogenic claudication (principal) | CPT/HCPCS: 99205 ==

== ENCOUNTER → 2023-10-11 14:28 | Outpatient (BNVA) | payer MEDICARE, OTHER, SELFPAY | PROVIDERS: PCP Family Medicine; Visit Provider Anesthesiology Pain Medicine | DX: M54.16 Radiculopathy, lumbar region (principal); M48.062 Spinal stenosis, lumbar region with neurogenic claudication | CPT/HCPCS: 64483; 64484; J1100; J3490 ==

== ENCOUNTER → 2023-10-17 15:38 | Outpatient (BNVA) | payer MEDICARE, OTHER, SELFPAY | PROVIDERS: PCP Family Medicine; Visit Provider Orthopaedic Surgery | DX: M48.062 Spinal stenosis, lumbar region with neurogenic claudication (principal) | CPT/HCPCS: 72110; 99214 ==

== ENCOUNTER 2023-10-25 10:15 | Oncology outpatient (recurring) (ONCR) | payer MEDICARE, OTHER, SELFPAY ==
[2023-10-24 12:02] VITALS: BP 115/61; PULSE 46; RESP 18; TEMP 36; O2SAT 95
[2023-10-24 12:09] LABS: Basophils % 0.5 %; Eosinophils # 0.1 10^3/uL (0.0-0.8); Eosinophils % 1.9 %; Lymphocytes # 1.3 10^3/uL (0.8-4.8); Lymphocytes % 21.1 %; Mean Corpuscular HGB Conc 33.1 g/dL (30-55); Mean Corpuscular Hemoglobin 27.2 pg (27-33); Mean Corpuscular Volume 82.1 fl (82-101); Mean Platelet Volume 10.3 fL (7.4-10.4); Monocytes # 0.6 10^3/uL (0.2-0.9); Neutrophils # 4.17 10^3/uL (1.8-7.7); Nucleated Red Blood Cells % 0 %; Platelet Count 217 10^3/cmm (157-399); Red Blood Count 5.48 10^6/uL (3.85-5.65); Red Cell Distribution Width 14.2 % (12.1-15.1); White Blood Count 6.22 10^3/uL (3.29-11.43)
[2023-10-24 12:35] LABS: Alanine Aminotransferase 6 U/L (0-41); Albumin Level 3.7 g/dL (3.5-5.2); Alkaline Phosphatase 87 U/L (40-130); Anion Gap 15.2 (5-19); Aspartate Amino Transferase 9 U/L (0-40); Blood Urea Nitrogen 17 mg/dL (8-23); Carbon Dioxide 26 mmol/L (22-29); Chloride 100 mmol/L (98-107); Creatinine Clr Calc Pharmacy 83.7797; Globulin 2.8 g/dL (1.3-4.6); Glucose 127 mg/dL (65-115); Osmolality Calculated 287 mOsm/kg (285-295); Potassium 4.2 mmol/L (3.5-5.1); Sodium 137 mmol/L (136-145); Total Bilirubin 0.4 mg/dL (0.15-1.2); Total Protein 6.5 g/dL (6.6-8.7)
[2023-10-24 12:39] LABS: Prostate Specific Antigen < 0.014 ng/mL (0-4)
[2023-10-25] MEDS: leuprolide 22.5 mg Kit IM (10:25)
== END 2023-11-17 23:59 | disposition home or self-care (01) ==
PROVIDERS: PCP Family Medicine; Visit Provider Internal Medicine Medical Oncology
DX: C61 Malignant neoplasm of prostate (principal); Z51.11 Encounter for antineoplastic chemotherapy; Z53.9 Procedure and treatment not carried out, unspecified reason
CPT/HCPCS: 80053; 84153; 85025; 96402; 99214; J9217

== ENCOUNTER → 2023-10-30 14:06 | Outpatient (BNVA) | payer MEDICARE, OTHER, SELFPAY | PROVIDERS: PCP Family Medicine; Visit Provider Anesthesiology Pain Medicine | DX: M54.16 Radiculopathy, lumbar region (principal); M48.062 Spinal stenosis, lumbar region with neurogenic claudication | CPT/HCPCS: 64483; 64484; J1100; J3490 ==

== ENCOUNTER → 2023-11-16 09:02 | Outpatient (BNVA) | payer MEDICARE, OTHER, SELFPAY | PROVIDERS: PCP Family Medicine; Visit Provider Anesthesiology Pain Medicine | DX: M48.062 Spinal stenosis, lumbar region with neurogenic claudication (principal) | CPT/HCPCS: 99214 ==

== ENCOUNTER 2024-01-17 13:25 | Oncology outpatient (recurring) (ONCR) | payer MEDICARE, OTHER, SELFPAY ==
[2024-01-17 13:48] LABS: Basophils % 0.6 %; Eosinophils # 0.2 10^3/uL (0.0-0.8); Eosinophils % 3.9 %; Hematocrit 43.6 % (37-53); Lymphocytes # 1.2 10^3/uL (0.8-4.8); Lymphocytes % 22.8 %; Mean Corpuscular HGB Conc 32.3 g/dL (30-55); Mean Corpuscular Hemoglobin 25.9 pg (27-33); Mean Corpuscular Volume 80.1 fl (82-101); Mean Platelet Volume 10.2 fL (7.4-10.4); Monocytes # 0.4 10^3/uL (0.2-0.9); Monocytes % 8.5 %; Neutrophils # 3.32 10^3/uL (1.8-7.7); Nucleated Red Blood Cells % 0 %; Platelet Count 209 10^3/cmm (157-399); Red Blood Count 5.44 10^6/uL (3.85-5.65); Red Cell Distribution Width 16.2 % (12.1-15.1); White Blood Count 5.18 10^3/uL (3.29-11.43)
[2024-01-17 14:50] LABS: Alanine Aminotransferase 8 U/L (0-41); Albumin Level 3.7 g/dL (3.5-5.2); Alkaline Phosphatase 78 U/L (40-130); Anion Gap 16.5 (5-19); Aspartate Amino Transferase 10 U/L (0-40); Blood Urea Nitrogen 24 mg/dL (8-23); Calcium 8.5 mg/dL (8.5-10.5); Carbon Dioxide 23 mmol/L (22-29); Chloride 106 mmol/L (98-107); Globulin 2.5 g/dL (1.3-4.6); Glucose 129 mg/dL (65-115); Osmolality Calculated 298 mOsm/kg (285-295); Potassium 4.5 mmol/L (3.5-5.1); Prostate Specific Antigen < 0.014 ng/mL (0-4); Sodium 141 mmol/L (136-145); Testosterone Total 6.7 ng/dL (193-740); Total Bilirubin 0.4 mg/dL (0.15-1.2); Total Protein 6.2 g/dL (6.6-8.7)
[2024-01-17] MEDS: leuprolide 22.5 mg Kit IM (15:58)
== END 2024-01-17 23:59 | disposition home or self-care (01) ==
PROVIDERS: Nurse Practitioner Family; PCP Family Medicine; Visit Provider Internal Medicine Medical Oncology
DX: Z51.11 Encounter for antineoplastic chemotherapy (principal); C61 Malignant neoplasm of prostate; Z87.891 Personal history of nicotine dependence; Z90.79 Acquired absence of other genital organ(s); Z79.818 Long term (current) use of other agents affecting estrogen receptors and estrogen levels; Z79.899 Other long term (current) drug therapy
CPT/HCPCS: 36415; 80053; 84153; 84403; 85025; 96402; 99195; 99214; J9217

== ENCOUNTER → 2024-02-06 10:22 | Outpatient (BNVA) | payer MEDICARE, OTHER, SELFPAY | PROVIDERS: PCP Family Medicine; Visit Provider Student in an Organized Health Care Education/Training Program | DX: Z96.641 Presence of right artificial hip joint (principal) | CPT/HCPCS: 73502; 99213 ==

== ENCOUNTER → 2024-03-05 08:33 | Outpatient (BNVA) | payer MEDICARE, OTHER, SELFPAY | PROVIDERS: PCP Family Medicine; Referring Provider Family Medicine; Visit Provider Nurse Practitioner Family | DX: L57.0 Actinic keratosis (principal); L56.8 Other specified acute skin changes due to ultraviolet radiation; L82.0 Inflamed seborrheic keratosis; L21.8 Other seborrheic dermatitis; L85.3 Xerosis cutis; R21 Rash and other nonspecific skin eruption; L60.8 Other nail disorders; D18.01 Hemangioma of skin and subcutaneous tissue; L81.4 Other melanin hyperpigmentation | CPT/HCPCS: 17000; 17110; 99203 ==

== ENCOUNTER 2024-04-10 13:22 | Oncology outpatient (recurring) (ONCR) | payer MEDICARE, OTHER, SELFPAY ==
[2024-04-10 13:51] LABS: Basophils % 0.7 %; Eosinophils # 0.2 10^3/uL (0.0-0.8); Eosinophils % 3.1 %; Hematocrit 43.2 % (37-53); Lymphocytes # 1.3 10^3/uL (0.8-4.8); Lymphocytes % 22.5 %; Mean Corpuscular HGB Conc 32.2 g/dL (30-55); Mean Corpuscular Hemoglobin 25.9 pg (27-33); Mean Corpuscular Volume 80.4 fl (82-101); Monocytes # 0.5 10^3/uL (0.2-0.9); Monocytes % 9.4 %; Neutrophils # 3.69 10^3/uL (1.8-7.7); Nucleated Red Blood Cells % 0 %; Platelet Count 226 10^3/cmm (157-399); Red Blood Count 5.37 10^6/uL (3.85-5.65); Red Cell Distribution Width 15.2 % (12.1-15.1); White Blood Count 5.77 10^3/uL (3.29-11.43)
[2024-04-10 14:21] LABS: Alanine Aminotransferase 11 U/L (0-41); Albumin Level 3.7 g/dL (3.5-5.2); Alkaline Phosphatase 101 U/L (40-130); Anion Gap 14.8 (5-19); Aspartate Amino Transferase 18 U/L (0-40); Blood Urea Nitrogen 18 mg/dL (8-23); Calcium 8.5 mg/dL (8.5-10.5); Carbon Dioxide 27 mmol/L (22-29); Chloride 99 mmol/L (98-107); Creatinine Clr Calc Pharmacy 82.1337; Globulin 2.7 g/dL (1.3-4.6); Glucose 107 mg/dL (65-115); Osmolality Calculated 284 mOsm/kg (285-295); Potassium 4.8 mmol/L (3.5-5.1); Prostate Specific Antigen < 0.014 ng/mL (0-4); Sodium 136 mmol/L (136-145); Testosterone Total 4.2 ng/dL (193-740); Total Bilirubin 0.4 mg/dL (0.15-1.2); Total Protein 6.4 g/dL (6.6-8.7)
[2024-04-10] MEDS: leuprolide 22.5 mg Kit IM (15:26)
[2024-04-10 15:30] VITALS: BP 146/78; PULSE 78; RESP 18; TEMP 36.6; O2SAT 98
== END 2024-04-18 23:59 | disposition home or self-care (01) ==
PROVIDERS: Nurse Practitioner Family; PCP Family Medicine; Visit Provider Internal Medicine Hematology & Oncology
DX: Z51.11 Encounter for antineoplastic chemotherapy (principal); C61 Malignant neoplasm of prostate; Z87.891 Personal history of nicotine dependence; Z90.79 Acquired absence of other genital organ(s); Z79.818 Long term (current) use of other agents affecting estrogen receptors and estrogen levels; Z79.01 Long term (current) use of anticoagulants; Z79.899 Other long term (current) drug therapy
CPT/HCPCS: 36415; 80053; 84153; 84403; 85025; 96402; 99214; J9217

== ENCOUNTER → 2024-06-26 12:48 | Outpatient (BNVA) | payer MEDICARE, OTHER, SELFPAY | PROVIDERS: PCP Family Medicine; Visit Provider Anesthesiology Pain Medicine | DX: M48.062 Spinal stenosis, lumbar region with neurogenic claudication (principal); M48.56XA Collapsed vertebra, not elsewhere classified, lumbar region, initial encounter for fracture; X58.XXXA Exposure to other specified factors, initial encounter | CPT/HCPCS: 99214 ==

== ENCOUNTER 2024-07-03 12:42 | Oncology outpatient (recurring) (ONCR) | payer MEDICARE, OTHER, SELFPAY ==
[2024-07-03 13:16] LABS: Basophils % 0.3 %; Eosinophils # 0.1 10^3/uL (0.0-0.8); Eosinophils % 2.3 %; Hematocrit 46.4 % (37-53); Lymphocytes # 1.4 10^3/uL (0.8-4.8); Lymphocytes % 23.5 %; Mean Corpuscular HGB Conc 32.5 g/dL (30-55); Mean Corpuscular Hemoglobin 26.6 pg (27-33); Mean Corpuscular Volume 81.8 fl (82-101); Monocytes # 0.7 10^3/uL (0.2-0.9); Monocytes % 11.9 %; Neutrophils # 3.79 10^3/uL (1.8-7.7); Neutrophils % 61.7 %; Nucleated Red Blood Cells % 0 %; Platelet Count 196 10^3/cmm (157-399); Red Blood Count 5.67 10^6/uL (3.85-5.65); Red Cell Distribution Width 14.8 % (12.1-15.1); White Blood Count 6.14 10^3/uL (3.29-11.43)
[2024-07-03 13:43] LABS: Alanine Aminotransferase 6 U/L (0-41); Albumin Level 3.9 g/dL (3.5-5.2); Alkaline Phosphatase 97 U/L (40-130); Anion Gap 14.6 (5-19); Aspartate Amino Transferase 10 U/L (0-40); Blood Urea Nitrogen 20 mg/dL (8-23); Calcium 9.1 mg/dL (8.5-10.5); Carbon Dioxide 26 mmol/L (22-29); Chloride 100 mmol/L (98-107); Creatinine Clr Calc Pharmacy 83.1919; Globulin 2.4 g/dL (1.3-4.6); Glucose 67 mg/dL (65-115); Osmolality Calculated 283 mOsm/kg (285-295); Potassium 4.6 mmol/L (3.5-5.1); Sodium 136 mmol/L (136-145); Testosterone Total 9.5 ng/dL (193-740); Total Bilirubin 0.4 mg/dL (0.15-1.2); Total Protein 6.3 g/dL (6.6-8.7)
[2024-07-03 13:47] LABS: Prostate Specific Antigen < 0.014 ng/mL (0-4)
[2024-07-03] MEDS: leuprolide 22.5 mg Kit IM (15:35)
== END 2024-07-19 23:59 | disposition home or self-care (01) ==
PROVIDERS: Nurse Practitioner Family; PCP Family Medicine; Visit Provider Internal Medicine Hematology & Oncology
DX: Z51.11 Encounter for antineoplastic chemotherapy (principal); C61 Malignant neoplasm of prostate; R26.81 Unsteadiness on feet; Z87.891 Personal history of nicotine dependence; Z90.79 Acquired absence of other genital organ(s); Z92.3 Personal history of irradiation; Z79.899 Other long term (current) drug therapy; Z79.818 Long term (current) use of other agents affecting estrogen receptors and estrogen levels; Z87.81 Personal history of (healed) traumatic fracture
CPT/HCPCS: 36415; 80053; 84153; 84403; 85025; 96402; 99213; J9217

== ENCOUNTER → 2024-09-02 09:49 | Outpatient (BNVA) | payer MEDICARE, OTHER, SELFPAY | PROVIDERS: PCP Family Medicine; Visit Provider Nurse Practitioner Family | DX: L21.8 Other seborrheic dermatitis (principal); L85.3 Xerosis cutis; L72.0 Epidermal cyst; L82.1 Other seborrheic keratosis; L57.8 Other skin changes due to chronic exposure to nonionizing radiation; D48.5 Neoplasm of uncertain behavior of skin; L57.0 Actinic keratosis | CPT/HCPCS: 11102; 17000; 99213 ==

== ENCOUNTER → 2024-09-24 10:14 | Outpatient (BNVA) | payer MEDICARE, OTHER, SELFPAY | PROVIDERS: PCP Family Medicine; Visit Provider Anesthesiology Pain Medicine | DX: M48.062 Spinal stenosis, lumbar region with neurogenic claudication (principal); M54.50 Low back pain, unspecified; Z87.891 Personal history of nicotine dependence | CPT/HCPCS: 99214 ==

== ENCOUNTER 2024-09-25 10:55 | Oncology outpatient (recurring) (ONCR) | payer MEDICARE, OTHER, SELFPAY ==
[2024-09-25 11:41] LABS: Basophils % 0.5 %; Eosinophils # 0.1 10^3/uL (0.0-0.8); Eosinophils % 2.1 %; Lymphocytes # 1.2 10^3/uL (0.8-4.8); Lymphocytes % 20.9 %; Mean Corpuscular HGB Conc 32.7 g/dL (30-55); Mean Corpuscular Hemoglobin 26.8 pg (27-33); Mean Corpuscular Volume 82.1 fl (82-101); Mean Platelet Volume 10.2 fL (7.4-10.4); Monocytes # 0.6 10^3/uL (0.2-0.9); Monocytes % 10.9 %; Neutrophils # 3.71 10^3/uL (1.8-7.7); Neutrophils % 65.2 %; Nucleated Red Blood Cells % 0 %; Platelet Count 191 10^3/cmm (157-399); Red Blood Count 5.48 10^6/uL (3.85-5.65); Red Cell Distribution Width 14.5 % (12.1-15.1); White Blood Count 5.69 10^3/uL (3.29-11.43)
[2024-09-25 12:08] LABS: Alanine Aminotransferase 7 U/L (0-41); Alkaline Phosphatase 88 U/L (40-130); Anion Gap 15.9 (5-19); Aspartate Amino Transferase 9 U/L (0-40); Blood Urea Nitrogen 22 mg/dL (8-23); Calcium 8.9 mg/dL (8.5-10.5); Carbon Dioxide 25 mmol/L (22-29); Chloride 101 mmol/L (98-107); Creatinine Clr Calc Pharmacy 67.6825; Globulin 2.5 g/dL (1.3-4.6); Glucose 109 mg/dL (65-115); Osmolality Calculated 288 mOsm/kg (285-295); Potassium 4.9 mmol/L (3.5-5.1); Sodium 137 mmol/L (136-145); Total Bilirubin 0.5 mg/dL (0.15-1.2); Total Protein 6.5 g/dL (6.6-8.7)
[2024-09-25 12:09] LABS: Prostate Specific Antigen < 0.014 ng/mL (0-4)
[2024-09-25] MEDS: leuprolide 22.5 mg Kit IM (12:22)
[2024-09-25 12:38] VITALS: BP 120/78; PULSE 75; RESP 17; TEMP 36.6; O2SAT 97
== END 2024-10-16 23:59 | disposition home or self-care (01) ==
PROVIDERS: Internal Medicine; PCP Family Medicine; Visit Provider Internal Medicine Hematology & Oncology
DX: Z51.11 Encounter for antineoplastic chemotherapy (principal); C61 Malignant neoplasm of prostate; Z79.818 Long term (current) use of other agents affecting estrogen receptors and estrogen levels; Z87.891 Personal history of nicotine dependence; Z90.79 Acquired absence of other genital organ(s); Z92.3 Personal history of irradiation; Z79.01 Long term (current) use of anticoagulants; Z79.899 Other long term (current) drug therapy
CPT/HCPCS: 36415; 80053; 84153; 84403; 85025; 96402; 99213; J9217

== ENCOUNTER → 2024-12-12 10:04 | Outpatient (BNVA) | payer MEDICARE, OTHER, SELFPAY | PROVIDERS: PCP Family Medicine; Visit Provider Nurse Practitioner Family | DX: L97.819 Non-pressure chronic ulcer of other part of right lower leg with unspecified severity (principal); I83.018 Varicose veins of right lower extremity with ulcer other part of lower leg; L72.0 Epidermal cyst; L85.3 Xerosis cutis; L57.8 Other skin changes due to chronic exposure to nonionizing radiation; L82.1 Other seborrheic keratosis; Z08 Encounter for follow-up examination after completed treatment for malignant neoplasm; Z86.007 Personal history of in-situ neoplasm of skin; Z09 Encounter for follow-up examination after completed treatment for conditions other than malignant neoplasm; Z87.2 Personal history of diseases of the skin and subcutaneous tissue; L57.0 Actinic keratosis | CPT/HCPCS: 17000; 99214 ==

== ENCOUNTER 2024-12-18 09:48 | Oncology outpatient (recurring) (ONCR) | payer MEDICARE, OTHER, SELFPAY ==
[2024-12-18 10:24] LABS: Hematocrit 46.2 % (37-53); Hemoglobin 14.70 g/dL (11.27-16.99); Mean Corpuscular HGB Conc 31.8 g/dL (30-55); Mean Corpuscular Hemoglobin 26.3 pg (27-33); Mean Corpuscular Volume 82.6 fl (82-101); Nucleated Red Blood Cells % 0 %; Platelet Count 179 10^3/cmm (157-399); Red Blood Count 5.59 10^6/uL (3.85-5.65); White Blood Count 5.01 10^3/uL (3.29-11.43)
[2024-12-18 10:57] LABS: Alanine Aminotransferase 7 U/L (0-41); Albumin Level 3.8 g/dL (3.5-5.2); Alkaline Phosphatase 98 U/L (40-130); Anion Gap 14.6 (5-19); Aspartate Amino Transferase 9 U/L (0-40); Blood Urea Nitrogen 19 mg/dL (8-23); Calcium 8.8 mg/dL (8.5-10.5); Carbon Dioxide 25 mmol/L (22-29); Chloride 103 mmol/L (98-107); Creatinine Clr Calc Pharmacy 75.3598; Globulin 2.4 g/dL (1.3-4.6); Glucose 135 mg/dL (65-115); Osmolality Calculated 290 mOsm/kg (285-295); Potassium 4.6 mmol/L (3.5-5.1); Sodium 138 mmol/L (136-145); Total Protein 6.2 g/dL (6.6-8.7)
[2024-12-18 10:59] LABS: Prostate Specific Antigen < 0.014 ng/mL (0-4)
[2024-12-18] MEDS: leuprolide 22.5 mg Kit IM (11:38)
== END 2025-01-16 23:59 | disposition home or self-care (01) ==
PROVIDERS: PCP Family Medicine; Visit Provider Internal Medicine
DX: Z51.11 Encounter for antineoplastic chemotherapy (principal); C61 Malignant neoplasm of prostate; Z79.818 Long term (current) use of other agents affecting estrogen receptors and estrogen levels; Z87.891 Personal history of nicotine dependence; Z79.899 Other long term (current) drug therapy; I87.2 Venous insufficiency (chronic) (peripheral)
CPT/HCPCS: 36415; 80053; 84153; 84403; 85025; 85378; 96402; 99213; J9217

== ENCOUNTER → 2025-02-10 13:21 | Outpatient (BNVA) | payer MEDICARE, OTHER, SELFPAY | PROVIDERS: PCP Family Medicine; Visit Provider Nurse Practitioner Family | DX: L97.819 Non-pressure chronic ulcer of other part of right lower leg with unspecified severity (principal); I83.018 Varicose veins of right lower extremity with ulcer other part of lower leg; L57.8 Other skin changes due to chronic exposure to nonionizing radiation; Z08 Encounter for follow-up examination after completed treatment for malignant neoplasm; Z86.007 Personal history of in-situ neoplasm of skin | CPT/HCPCS: 99213 ==

== ENCOUNTER → 2025-02-24 14:10 | Outpatient (BNVA) | payer MEDICARE, OTHER, SELFPAY | PROVIDERS: PCP Family Medicine; Visit Provider Nurse Practitioner Family | DX: L57.8 Other skin changes due to chronic exposure to nonionizing radiation (principal); Z08 Encounter for follow-up examination after completed treatment for malignant neoplasm; Z86.007 Personal history of in-situ neoplasm of skin; L72.0 Epidermal cyst; R20.8 Other disturbances of skin sensation | CPT/HCPCS: 10060; 99212 ==

== ENCOUNTER → 2025-02-27 10:23 | Outpatient (BNVA) | payer MEDICARE, OTHER, SELFPAY | PROVIDERS: PCP Family Medicine; Visit Provider Nurse Practitioner Family | DX: L72.0 Epidermal cyst (principal); R20.8 Other disturbances of skin sensation; R60.0 Localized edema; R23.8 Other skin changes; R20.9 Unspecified disturbances of skin sensation | CPT/HCPCS: 99214 ==

== ENCOUNTER → 2025-03-03 09:08 | Outpatient (BNVA) | payer MEDICARE, OTHER, SELFPAY | PROVIDERS: PCP Family Medicine; Visit Provider Nurse Practitioner Family | DX: L72.0 Epidermal cyst (principal); R20.8 Other disturbances of skin sensation; R60.0 Localized edema; R23.8 Other skin changes; R20.9 Unspecified disturbances of skin sensation | CPT/HCPCS: 99214 ==

== ENCOUNTER → 2025-03-10 07:55 | Outpatient (BNVA) | payer MEDICARE, OTHER, SELFPAY | PROVIDERS: PCP Family Medicine; Visit Provider Nurse Practitioner Family | DX: L72.0 Epidermal cyst (principal); R20.8 Other disturbances of skin sensation; R60.0 Localized edema; R23.8 Other skin changes; R20.9 Unspecified disturbances of skin sensation | CPT/HCPCS: 99213 ==

== ENCOUNTER 2025-03-12 09:57 | Oncology outpatient (recurring) (ONCR) | payer MEDICARE, OTHER, SELFPAY ==
[2025-03-12 10:21] LABS: Hematocrit 43.4 % (37-53); Hemoglobin 14.20 g/dL (11.27-16.99); Mean Corpuscular HGB Conc 32.7 g/dL (30-55); Mean Corpuscular Hemoglobin 26.3 pg (27-33); Mean Corpuscular Volume 80.4 fl (82-101); Nucleated Red Blood Cells % 0 %; Platelet Count 163 10^3/cmm (157-399); Red Blood Count 5.40 10^6/uL (3.85-5.65); White Blood Count 6.48 10^3/uL (3.29-11.43)
[2025-03-12 10:49] LABS: Alanine Aminotransferase < 5 U/L (0-41); Albumin Level 3.5 g/dL (3.5-5.2); Alkaline Phosphatase 116 U/L (40-130); Anion Gap 12.4 (5-19); Aspartate Amino Transferase 9 U/L (0-40); Blood Urea Nitrogen 20 mg/dL (8-23); Calcium 8.6 mg/dL (8.5-10.5); Carbon Dioxide 26 mmol/L (22-29); Chloride 104 mmol/L (98-107); Creatinine Clr Calc Pharmacy 67.2591; Globulin 2.7 g/dL (1.3-4.6); Glucose 105 mg/dL (65-115); Osmolality Calculated 289 mOsm/kg (285-295); Potassium 4.4 mmol/L (3.5-5.1); Sodium 138 mmol/L (136-145); Total Protein 6.2 g/dL (6.6-8.7)
[2025-03-12 10:52] LABS: Prostate Specific Antigen < 0.014 ng/mL (0-4)
[2025-03-12] MEDS: leuprolide 22.5 mg Kit IM (11:33)
== END 2025-03-18 23:59 | disposition home or self-care (01) ==
PROVIDERS: Nurse Practitioner Family; PCP Family Medicine; Visit Provider Internal Medicine
DX: Z51.11 Encounter for antineoplastic chemotherapy (principal); C61 Malignant neoplasm of prostate; C77.2 Secondary and unspecified malignant neoplasm of intra-abdominal lymph nodes; Z79.818 Long term (current) use of other agents affecting estrogen receptors and estrogen levels; Z87.891 Personal history of nicotine dependence; Z79.899 Other long term (current) drug therapy; Z79.01 Long term (current) use of anticoagulants
CPT/HCPCS: 36415; 80053; 84153; 84403; 85025; 96402; 99213; J9217

== ENCOUNTER → 2025-03-25 10:55 | Outpatient (BNVA) | payer MEDICARE, OTHER, SELFPAY | PROVIDERS: PCP Family Medicine; Visit Provider Anesthesiology Pain Medicine | DX: M48.062 Spinal stenosis, lumbar region with neurogenic claudication (principal) | CPT/HCPCS: 99214 ==

== ENCOUNTER → 2025-04-25 08:19 | Outpatient (BNVA) | payer MEDICARE, OTHER, SELFPAY | PROVIDERS: PCP Family Medicine; Visit Provider Dermatology | DX: D04.9 Carcinoma in situ of skin, unspecified (principal); D48.5 Neoplasm of uncertain behavior of skin; R20.8 Other disturbances of skin sensation; R23.8 Other skin changes; L53.8 Other specified erythematous conditions; L72.0 Epidermal cyst | CPT/HCPCS: 10060; 11443; 13132; 99214 ==

== ENCOUNTER → 2025-05-06 14:03 | Outpatient (BNVA) | payer MEDICARE, OTHER, SELFPAY | PROVIDERS: PCP Family Medicine; Visit Provider Anesthesiology Pain Medicine | DX: M47.816 Spondylosis without myelopathy or radiculopathy, lumbar region (principal) | CPT/HCPCS: 64493; 64494; 64495; J3490; J9999 ==

== ENCOUNTER → 2025-05-19 13:30 | Outpatient (BNVA) | payer MEDICARE, OTHER, SELFPAY | PROVIDERS: PCP Family Medicine; Visit Provider Dermatology | DX: L23.9 Allergic contact dermatitis, unspecified cause (principal); D04.9 Carcinoma in situ of skin, unspecified | CPT/HCPCS: 99214 ==

== ENCOUNTER → 2025-05-22 10:10 | Outpatient (BNVA) | payer MEDICARE, OTHER, SELFPAY | PROVIDERS: PCP Family Medicine; Visit Provider Dermatology | DX: L23.9 Allergic contact dermatitis, unspecified cause (principal); D04.9 Carcinoma in situ of skin, unspecified | CPT/HCPCS: 99214 ==

== ENCOUNTER 2025-06-04 09:55 | Oncology outpatient (recurring) (ONCR) | payer MEDICARE, OTHER, SELFPAY ==
[2025-06-04 10:19] LABS: Hematocrit 46.6 % (37-53); Hemoglobin 15.20 g/dL (11.27-16.99); Mean Corpuscular HGB Conc 32.6 g/dL (30-55); Mean Corpuscular Hemoglobin 26.4 pg (27-33); Mean Corpuscular Volume 81.0 fl (82-101); Nucleated Red Blood Cells % 0 %; Platelet Count 205 10^3/cmm (157-399); Red Blood Count 5.75 10^6/uL (3.85-5.65); White Blood Count 7.34 10^3/uL (3.29-11.43)
[2025-06-04 10:58] LABS: Alanine Aminotransferase 7 U/L (0-41); Albumin Level 3.9 g/dL (3.5-5.2); Alkaline Phosphatase 89 U/L (40-130); Anion Gap 13.9 (5-19); Aspartate Amino Transferase 9 U/L (0-40); Blood Urea Nitrogen 21 mg/dL (8-23); Calcium 9.3 mg/dL (8.5-10.5); Carbon Dioxide 28 mmol/L (22-29); Chloride 100 mmol/L (98-107); Creatinine Clr Calc Pharmacy 60.1789; Globulin 2.3 g/dL (1.3-4.6); Glucose 121 mg/dL (65-115); Osmolality Calculated 288 mOsm/kg (285-295); Potassium 4.9 mmol/L (3.5-5.1); Sodium 137 mmol/L (136-145); Total Protein 6.2 g/dL (6.6-8.7)
[2025-06-04 11:18] LABS: Prostate Specific Antigen < 0.014 ng/mL (0-4)
[2025-06-04] MEDS: leuprolide 22.5 mg Kit IM (12:12)
== END 2025-06-18 23:59 | disposition home or self-care (01) ==
PROVIDERS: PCP Family Medicine; Visit Provider Nurse Practitioner
DX: Z51.11 Encounter for antineoplastic chemotherapy (principal); C61 Malignant neoplasm of prostate; C77.2 Secondary and unspecified malignant neoplasm of intra-abdominal lymph nodes; Z79.818 Long term (current) use of other agents affecting estrogen receptors and estrogen levels; Z87.891 Personal history of nicotine dependence; Z79.899 Other long term (current) drug therapy; Z79.01 Long term (current) use of anticoagulants; R03.0 Elevated blood-pressure reading, without diagnosis of hypertension; I26.99 Other pulmonary embolism without acute cor pulmonale
CPT/HCPCS: 80053; 84153; 84403; 85025; 96402; 99213; J9217